=== PATIENT | female | born 1935 | race Caucasian/White ===

== ENCOUNTER 2017-08-31 17:59 | Emergency (ER) | payer OTHER, MEDICARE ==
[~2017-08-31] VITALS: Ht 154.9 cm; Wt 93.4 kg
[~2017-08-31 17:59] MED LIST: ADVAIR 250-501 EACH INH; ALBUTEROL2.5 MG/3 M INH/SOL; DIGOXIN250 MCG PO; ELIQUIS2.5 M1 PO; FUROSEMIDE40 M1 PO; GABAPENTIN300 M2 PO; GLIPIZIDE10 M2 PO; ISOSORBIDE MONO60 M1 PO; JANUVIA100 M1 PO; LASIX40 M1 PO; LEVEMIR FL100 UNIT/1 SC; LEVEMIR100 UNIT/1 SC; LEVOTHYROXINE100 MC1 PO; LORAZEPAM0.5 M1 PO; METFORMIN HCL500 M3 PO; METOPROLOL SUC100 M2 PO; OMEPRAZOLE40 M1 PO; OXYCODONE-ACET1 EACH PO; PRANDIN PO; SIMVASTATIN40 M1 PO; VALSARTAN160 M1 PO; XARELTO15 M2 PO
[2017-08-31 18:54] LABS: ABSOLUTE BASOPHIL COUNT 0 /CUMM (0.0-0.2); ABSOLUTE EOSINOPHIL COUNT 0.2 /CUMM (0.0-0.7); ABSOLUTE GRANULOCYTE CT 10.4 /CUMM (1.4-6.5); ABSOLUTE LYMPH COUNT 1.1 /CUMM (1.2-3.4); ABSOLUTE MONOCYTE COUNT 0.8 /CUMM (0.10-0.60); BASOPHIL % 0.3 % (0.0-2.0); EOSINOPHIL % 1.8 % (0-5); HEMATOCRIT 30.8 % (37-47); MEAN CORPUSCULAR HGB 24.7 PG (27.0-31.0); MEAN CORPUSCULAR HGB CONC 32.7 G/DL (33.0-37.0); MEAN CORPUSCULAR VOLUME 75.7 FL (81.0-99.0); MEAN PLATELET VOLUME 7.1 FL (7.4-10.4); PLATELET COUNT 319 /CUMM (130-400); RBC DISTRIBUTION WIDTH 22.7 % (11.5-14.5); RED BLOOD CELL CT 4.07 /CUMM (4.20-5.40); WHITE BLOOD CELL COUNT 12.5 /CUMM (4.8-10.8)
--- NOTE | 2017-08-31 19:23 | ULTRASOUND REPORT ---
EXAMINATION: US TRIPLEX LOWER EXTREMITY, RIGHT CLINICAL INFORMATION: Right lower extremity pain and edema. COMPARISON: None TECHNIQUE: Color-flow triplex imaging with spectral analysis and compression Doppler were performed on the lower extremity. FINDINGS: Respiratory variation, normal compression and augmented flow are noted throughout the lower extremity. The visualized common femoral vein, superficial femoral vein, profunda femoral vein, popliteal vein and midcalf peroneal and posterior tibial venous segments show no evidence of deep venous thrombosis. There is no Schmitt's cyst. IMPRESSION: Normal triplex scan without evidence of deep venous thrombosis involving the lower extremity.
--- NOTE | 2017-08-31 19:32 | ED GENERAL ADULT ---
History of Present Illness General Chief Complaint: Lower Extremity Problems Stated Complaint: SENT BY FOR POSSIBLE CELLULITIS Source: patient, family, old records Exam Limitations: no limitations Vital Signs & Intake/Output Vital Signs & Intake/Output Vital Signs Date Time Temp Pulse Resp B/P B/P Pulse O2 O2 Flow FiO2 Mean Ox Delivery Rate 08/31 2049 97 Nasal Cannula 09/01 2047 97.9 96 18 132/69 97 Nasal 2.0L Cannula 08/31 1817 97.7 96 18 145/82 93 Room Air Allergies Coded Allergies: NO KNOWN ALLERGIES (04/26/13) Reconcile Medications Albuterol Sulfate 2.5 MG/3 ML (0.083 %) VIAL.NEB 1 Vial INH/SARAH Q6-PRN PRN SHORTNESS OF BREATH (Reported) Amoxicillin/Potassium Clav (Augmentin 875-125 Tablet) 875 MG-125 MG TABLET 1 TAB PO BID cellulitis Apixaban (Eliquis) 2.5 MG TABLET 2.5 MG PO BID ATRIAL FIBRILLATION . Fluticasone/Salmeterol (Advair 250-50 Diskus) 250 MCG-50 MCG/DOSE BLST.W.DEV 1 PUF INH BID PRN SHORTNESS OF BREATH (Reported) Furosemide (Lasix) 40 MG TABLET 1 TAB PO DAILY WATER RETENTION (Reported) Gabapentin 300 MG CAPSULE 1 CAP PO QPM SLEEP (Reported) Insulin Detemir (Levemir Flextouch) 100 UNIT/ML (3 ML) INSULN.PEN 29 U SC DAILY DIABETES (Reported) Isosorbide Mononitrate (Isosorbide Mononitrate ER) 60 MG TAB.ER.24H 1 TAB PO DAILY HEART (Reported) Levothyroxine Sodium 100 MCG TABLET 1 TAB PO DAILY AC THYROID (Reported) Lorazepam 0.5 MG TABLET 1 TAB PO QPMP PRN SLEEP (Reported) Metoprolol Succinate 100 MG TAB.ER.24H 1 TAB PO DAILY HEART (Reported) Omeprazole 40 MG CAPSULE.DR 1 CAP PO QPM ACID REFLUX (Reported) Oxycodone HCl/Acetaminophen (Oxycodone-Acetaminophen 5-325) 5 MG-325 MG TABLET 1 TAB PO BIDP PRN PAIN (Reported) Repaglinide (Prandin) 2 MG TABLET 1 TAB PO TID DIABETES . Simvastatin (Simvastatin*) 40 MG TABLET 1 TAB PO DAILY CHOLESTEROL (Reported) Triage Note: PT TO WITH DAUGHTER C/C RLE EDEMA AND REDDNESS X 1 DAY. +5 LB WEIGHT GAIN. DENIES CHEST PAIN. HX OF SOB SECONDARY TO COPD, ON 2L NC AT BASELINE Triage Nurses Notes Reviewed? yes Onset: Abrupt Duration: day(s): (2), constant, continues in ED Timing: recent history Injury Environment: home Severity: mild, moderate Severity Numbers: 5 No Modifying Factors: none LMP (ages 10-50): post menopausal : No Patient currently breastfeeds: No HPI: 82-year-old female past medical history of COPD on 2 L home O2, CHF, atrial fibrillation, diabetes, hypothyroid, coronary artery disease presents for evaluation of pain swelling or redness in her right lower extremity as well as bilateral lower extremity edema right worse than left. Patient reports she has gained 5 pounds over the past day. She has a history of recurrent cellulitis in the right lower extremity. She reports that it is usually always a light pink color but over the past several days is become darker red. There is also painful around the lower extremity calf and ankle. No trauma. She is able to walk with a walker. No chest pain shortness of breath fever numbness tingling. No coughing no hemoptysis. No recent surgery or trauma. She has not required additional home oxygen. (Howard Calix) Past History Travel History Traveled to [place] past 21 day No Medical History Any Pertinent Medical History? see below for history Neurological: migraine (remote history), NEUROPATHY EENT: NONE Cardiovascular: AFIB, angina, CHF, hypertension, hyperlipidemia, "MULTIPLE WA'S " QUAD BYPASS Respiratory: COPD Gastrointestinal: GERD Hepatic: NONE Renal: NONE Musculoskeletal: NONE Psychiatric: anxiety Endocrine: diabetes, HYPOTHYROID Blood Disorders: NONE Cancer(s): NONE History of MRSA: No History of VRE: No History of CDIFF: No Surgical History Surgical History: appendectomy, arthroscopy, CABG, cholecystectomy, hysterectomy , thyroid lobectomy rotator cuff repair Psychosocial History Who do you live with Daughter Services at Home None What is your primary language Divehi Tobacco Use: Never used Family History Family History, If Any: FATHER FH: CABG (coronary artery bypass surgery) FH: diabetes mellitus FH: HTN (hypertension) FH: kidney disease FH: stroke MOTHER FH: myocardial infarction BROTHER FH: heart disease SISTER FH: COPD (chronic obstructive pulmonary disease) FH: heart disease Hx Contributory? No (Howard Calix) Review of Systems Review of Systems Constitutional: Reports: no symptoms. EENTM: Reports: no symptoms. Respiratory: Reports: no symptoms. Cardiovascular: Reports: peripheral edema. GI: Reports: no symptoms. Genitourinary: Reports: no symptoms. Musculoskeletal: Reports: see HPI, joint pain, joint swelling, muscle pain, muscle stiffness. Skin: Reports: erythema. Neurological/Psychological: Reports: no symptoms. Hematologic/Endocrine: Reports: no symptoms. Immunologic/Allergic: Reports: no symptoms. All Other Systems: Reviewed and Negative (Howard Calix) Physical Exam Physical Exam General Appearance: well developed/nourished, no apparent distress, alert, awake , obese Head: atraumatic, normal appearance Eyes: Bilateral: normal appearance, PERRL, EOMI. Ears, Nose, Throat: hearing grossly normal Neck: normal inspection, supple, full range of motion, NO JVD Respiratory: chest non-tender, no respiratory distress, quiet respiration, decreased breath sounds Cardiovascular: regular rate/rhythm, normal peripheral pulses Peripheral Pulses: 2+ radial (R), 2+ radial (L) Gastrointestinal: soft, non-tender Back: normal inspection, normal range of motion Extremities: THERE IS BILATERAL 1+ LOWER EXTREMITY EDEMA RT WORSE THAN LEFT. tHERE IS ERYTHEMA PRESENT FROM THE RIGHT ANKLE EXTENDING TO THE MID RIGHT LOWER LEG. tHIS AREA IS TENDER TO PALPATION AND WARM . nO FOCAL FLUCTUANT AREAS OR DISCHARGE. nO BRUISING. sHE IS ABLE TO WALK AND BEAR WEIGHT. Neurologic/Psych: no motor/sensory deficits, awake, alert, oriented x 3, normal gait (WITH WALKER ) Skin: intact, normal color, warm/dry Lymphatic: no anterior cervical tomy Core Measures ACS in differential dx? No CVA/TIA Diagnosis: No Sepsis Present: No Sepsis Focused Exam Completed? No (Howard Calix) Progress Differential Diagnoses I considered the following diagnoses in my evaluation of the patient: [ Cellulitis, DVT, CHF exacerbation, COPD exacerbation, dependent edema, osteomyelitis, gout, osteoarthritis, sprain, fracture] Plan of Care: Orders Procedure Date/time Status TROPONIN LEVEL 08/31 1818 Complete LACTIC ACID 08/31 1818 Complete COMPREHENSIVE METABOLIC PANEL 08/31 1818 Complete CBC WITHOUT DIFFERENTIAL 08/31 1818 Complete B-TYPE NATRIURETIC PEP (BNP) 08/31 1818 Complete EKG 08/31 1818 Active Laboratory Tests 08/31/172118: Lactic Acid Cancelled 08/31/17 1843: Anion Gap 12, Estimated GFR 33 L, BUN/Creatinine Ratio 20.7, Glucose 187 H, Lactic Acid 2.1, Calcium 8.8, Total Bilirubin 0.7, AST 15, ALT 19, Alkaline Phosphatase 93, Troponin I 0.03, [id number] Pept 1370 H, Total Protein 7.0, Albumin 3.7, Globulin 3.3, Albumin/Globulin Ratio 1.1, CBC w Diff NO MAN DIFF REQ, RBC 4.07 L, MCV 75.7 L, MCH 24.7 L, MCHC 32.7 L, RDW 22.7 H, MPV 7.1 L, Gran % 83.0 H, Lymphocytes % 8.9 L, Monocytes % 6.0, Eosinophils % 1.8 , Basophils % 0.3, Absolute Granulocytes 10.4 H, Absolute Lymphocytes 1.1 L, Absolute Monocytes 0.8 H, Absolute Eosinophils 0.2, Absolute Basophils 0 08/31/171818: Urine Color Cancelled, Urine Clarity Cancelled, Urine pH Cancelled, Ur Specific [place] Cancelled, Urine Protein Cancelled, Urine Ketones Cancelled, Urine Nitrite Cancelled, Urine Bilirubin Cancelled, Urine Urobilinogen Cancelled, Ur Leukocyte Esterase Cancelled, Ur Microscopic Cancelled, Urine Hemoglobin Cancelled, Urine Glucose Cancelled Patient seen and evaluated. She is reporting pain swelling and redness in the right lower extremity. She has a history of recurrent cellulitis in this area. She is afebrile no chest pain or shortness of breath. She is satting in the mid 90s on her home O2. Basic blood work chest x-ray ultrasound EKG obtained. white blood cell count of 12.5 thousand. Negative lactic acid. Remaining blood work is unchanged from previous. Chest x-ray is negative for pulmonary edema. Negative for DVT. Trachea of the right ankle shows soft tissue swelling without bony abnormality. Negative troponin EKG shows A. fib rate controlled. Patient was ambulated in the emergency department and did not desaturate. She has a steady gait with her walker. She lives at home with her daughter and has a nurse that visits 3 times weekly. Patient was medicated with Unasyn here. She'll be discharged home on Augmentin. A line was made around the area of erythema to track spread. Discussed return precautions in detail. Follow-up with primary care doctor and biomedical equipment specialist for a recheck in a few days return to the emergency department immediately if any concerns. Patient agrees the plan. Case discussed with Dr. JOE he agrees. Diagnostic Imaging: Viewed by Me: Radiology Read. Discussed w/RAD: Radiology Read. Radiology Impression: PATIENT: LOUANN BECKER PRESENT AGE: 82 PATIENT ACCOUNT NO: [id number] : 36 LOCATION: [facility] ORDERING PHYSICIAN: Howard COPELAND SERVICE DATE: 08/31/17 EXAM TYPE: RAD - XRY- ANKLE 3 OR MORE VIEWS R EXAMINATION: RIGHT ANKLE 3 VIEWS CLINICAL INFORMATION: Ankle pain and swelling. COMPARISON: None. TECHNIQUE: AP, lateral, oblique views of the right ankle were obtained. FINDINGS: There are no fractures or dislocations. There is soft tissue swelling overlying the lateral malleolus. There is a small calcaneal spur at the Achilles insertion site. There is a well- corticated ossicle inferior to the lateral malleolus. No ankle joint effusion is identified. IMPRESSION: Soft tissue swelling without acute fracture. DICTATED BY : Alonso Martines MD DATE/TIME DICTATED:08/31/172023 TABULATING SUPERVISOR:BREANNA DATE/TIME TRANSCRIBED:08/31/172023 CONFIDENTIAL, DO NOT COPY WITHOUT APPROPRIATE AUTHORIZATION. <Electronically signed in Other Vendor System> SIGNED BY: Alonso Martines MD 08/31/17 2 CXR Impression: PATIENT: LOUANN BECKER PRESENT AGE: 82 PATIENT ACCOUNT NO: [id number] : 36 LOCATION: [facility]) ORDERING PHYSICIAN: Howard COPELAND SERVICE DATE: 08/31/17 EXAM TYPE: RAD - XRY-CHEST XRAY, TWO VIEWS EXAMINATION: CHEST 2 VIEWS CLINICAL INFORMATION: Edema. Crackles. COMPARISON: 03/31/2017. TECHNIQUE: PA and lateral views of the chest were obtained. FINDINGS: The cardiac silhouette is enlarged, though stable. Intact midline sternal wires are present. There is a stable degree of interstitial prominence throughout both lungs. There are no discernible pleural effusions nor pneumothoraces. There are no consolidations. The osseous structures are stable. IMPRESSION: No consolidations. Stable cardiomegaly with stable degree of mild vascular congestion. DICTATED BY: Alonso Martines MD DATE/TIME DICTATED:08/31/171931 TABULATING SUPERVISOR:BREANNA DATE/TIME TRANSCRIBED:08/31/171931 CONFIDENTIAL, DO NOT COPY WITHOUT APPROPRIATE AUTHORIZATION. <Electronically signed in Other Vendor System> SIGNED BY: Alonso Martines MD 08/31/171936 Initial ED EKG: AFIB (RATE 117) (Howard Calix) Departure Departure Disposition: HOME OR SELF CARE Condition: Stable Clinical Impression Primary Impression: Cellulitis Qualifiers: Site of cellulitis: extremity Site of cellulitis of extremity: lower extremity Laterality: right Qualified Code: L03.115 - Cellulitis of right lower limb Referrals: Cheryle SAVAGE,Catalino Ta (PCP/Family) Additional Instructions: Take antibiotics as directed for the full course. Continue all medications as directed. Keep the legs elevated at night follow-up with her primary care doctor and biomedical equipment specialist. Monitor symptoms. If you have worsening swelling, chest pain, shortness of breath, fever, spreading redness or any other concerns return immediately. Departure Forms: Customer Survey General Discharge Information Prescriptions: Current Visit Scripts Amoxicillin/Potassium Clav (Augmentin 875-125 Tablet) 1 TAB PO BID #20 TAB (Howard Calix) PA/NAILHEAD SETTER Co-Sign Statement Statement: ED Attending supervision documentation- [X] I saw and evaluated the patient. I have also reviewed all the pertinent lab results and diagnostic results. I agree with the findings and the plan of care as documented in the PA's/NAILHEAD SETTER's documentation. [X] I have reviewed the ED Record and agree with the PA's/NAILHEAD SETTER's documentation. [] Additions or exceptions (if any) to the PAs/NAILHEAD SETTER's note and plan are summarized below: [] (Seb SAVAGE,Rajeev Kay) Critical Care Note Critical Care Note Critical Care Time: non-applicable (Howard Calix)
--- NOTE | 2017-08-31 19:37 | RADIOLOGY REPORT ---
EXAMINATION: CHEST 2 VIEWS CLINICAL INFORMATION: Edema. Crackles. COMPARISON: 03/31/2017. TECHNIQUE: PA and lateral views of the chest were obtained. FINDINGS: The cardiac silhouette is enlarged, though stable. Intact midline sternal wires are present. There is a stable degree of interstitial prominence throughout both lungs. There are no discernible pleural effusions nor pneumothoraces. There are no consolidations. The osseous structures are stable. IMPRESSION: No consolidations. Stable cardiomegaly with stable degree of mild vascular congestion.
--- NOTE | 2017-08-31 20:30 | RADIOLOGY REPORT ---
EXAMINATION: RIGHT ANKLE 3 VIEWS CLINICAL INFORMATION: Ankle pain and swelling. COMPARISON: None. TECHNIQUE: AP, lateral, oblique views of the right ankle were obtained. FINDINGS: There are no fractures or dislocations. There is soft tissue swelling overlying the lateral malleolus. There is a small calcaneal spur at the Achilles insertion site. There is a well-corticated ossicle inferior to the lateral malleolus. No ankle joint effusion is identified. IMPRESSION: Soft tissue swelling without acute fracture.
[2017-08-31 20:48] VITALS: BP 132/69
[2017-08-31] MEDS ORDERED: AUGMENTIN 875-1 EACH PO (21:22)
== END 2017-08-31 21:45 ==
LOC: ERH 17:59
PROVIDERS: Physician Assistant Medical
DX: L03.115 Cellulitis of right lower limb (principal); R60.0 Localized edema; I50.9 Heart failure, unspecified; E11.9 Type 2 diabetes mellitus without complications; I10 Essential (primary) hypertension; Z79.4 Long term (current) use of insulin
CPT/HCPCS: 71046; 73610-RT; 93005; 93010; 96374

== ENCOUNTER 2017-09-04 16:51 | Inpatient (IN) | payer OTHER, MEDICARE ==
[~2017-09-04] VITALS: Ht 154.9 cm; Wt 84.9 kg
[~2017-09-04 16:51] MED LIST changes: +AUGMENTIN 875-1 EACH PO
[2017-09-04 17:49] LABS: ABSOLUTE BASOPHIL COUNT 0 /CUMM (0.0-0.2); ABSOLUTE EOSINOPHIL COUNT 0.2 /CUMM (0.0-0.7); ABSOLUTE GRANULOCYTE CT 9.6 /CUMM (1.4-6.5); ABSOLUTE MONOCYTE COUNT 0.7 /CUMM (0.10-0.60); BASOPHIL % 0.1 % (0.0-2.0); EOSINOPHIL % 1.3 % (0-5); HEMATOCRIT 29.5 % (37-47); MEAN CORPUSCULAR HGB 23.4 PG (27.0-31.0); MEAN CORPUSCULAR HGB CONC 30.7 G/DL (33.0-37.0); MEAN CORPUSCULAR VOLUME 76.4 FL (81.0-99.0); MEAN PLATELET VOLUME 6.8 FL (7.4-10.4); PLATELET COUNT 283 /CUMM (130-400); RBC DISTRIBUTION WIDTH 23.5 % (11.5-14.5); RED BLOOD CELL CT 3.86 /CUMM (4.20-5.40); WHITE BLOOD CELL COUNT 11.4 /CUMM (4.8-10.8)
--- NOTE | 2017-09-04 18:34 | RADIOLOGY REPORT ---
EXAMINATION: XR CHEST CLINICAL INFORMATION: Increased fluid retention. Shortness of breath. COMPARISON: 08/31/2017 TECHNIQUE: 2 views of the chest were obtained. FINDINGS: Surgical clips overlie the mediastinum. Median sternotomy wires appear intact. The lungs are well expanded. Central vascular prominence with mild interstitial prominence. No pleural effusion or pneumothorax. No dense consolidation. The cardiac silhouette is prominent. There is a calcified aorta. IMPRESSION: Findings suggestive of mild fluid overload. No pleural effusion or consolidation.
--- NOTE | 2017-09-04 19:41 | ED GENERAL ADULT ---
History of Present Illness General Chief Complaint: General Adult Stated Complaint: "BACK PAIN, GAIN 9LBS OF FLUID IN 1 WEEK" Source: patient, family Exam Limitations: no limitations Vital Signs & Intake/Output Vital Signs & Intake/Output Vital Signs Date Time Temp Pulse Resp B/P B/P Pulse O2 O2 Flow FiO2 Mean Ox Delivery Rate 09/04 2132 Nasal 3.0L Cannula 09/04 1906 101 20 114/64 96 Nasal 2.0L Cannula 09/04 1730 97.1 106 22 124/71 95 Nasal 2.0L Cannula Allergies Coded Allergies: NO KNOWN ALLERGIES (04/26/13) Reconcile Medications Albuterol Sulfate 2.5 MG/3 ML (0.083 %) VIAL.NEB 1 Vial INH/SARAH Q6-PRN PRN SHORTNESS OF BREATH (Reported) Amoxicillin/Potassium Clav (Augmentin 875-125 Tablet) 875 MG-125 MG TABLET 1 TAB PO BID cellulitis Apixaban (Eliquis) 2.5 MG TABLET 2.5 MG PO BID ATRIAL FIBRILLATION . Fluticasone/Salmeterol (Advair 250-50 Diskus) 250 MCG-50 MCG/DOSE BLST.W.DEV 1 PUF INH BID PRN SHORTNESS OF BREATH (Reported) Furosemide (Lasix) 40 MG TABLET 1 TAB PO DAILY WATER RETENTION (Reported) Gabapentin 300 MG CAPSULE 1 CAP PO QPM SLEEP (Reported) Insulin Detemir (Levemir Flextouch) 100 UNIT/ML (3 ML) INSULN.PEN 29 U SC DAILY DIABETES (Reported) Isosorbide Mononitrate (Isosorbide Mononitrate ER) 60 MG TAB.ER.24H 1 TAB PO DAILY HEART (Reported) Levothyroxine Sodium 100 MCG TABLET 1 TAB PO DAILY AC THYROID (Reported) Lorazepam 0.5 MG TABLET 1 TAB PO QPMP PRN SLEEP (Reported) Metoprolol Succinate 100 MG TAB.ER.24H 1 TAB PO DAILY HEART (Reported) Omeprazole 40 MG CAPSULE.DR 1 CAP PO QPM ACID REFLUX (Reported) Oxycodone HCl/Acetaminophen (Oxycodone-Acetaminophen 5-325) 5 MG-325 MG TABLET 1 TAB PO BIDP PRN PAIN (Reported) Repaglinide (Prandin) 2 MG TABLET 1 TAB PO TID DIABETES . Simvastatin (Simvastatin*) 40 MG TABLET 1 TAB PO DAILY CHOLESTEROL (Reported) Triage Note: 82 YEAR OLD FEMALE HISTORY OF CHF COMES TO ER DUE TO 5-10 LB WEIGHT GAIN SINCE THURSDAY, PT IS O2 DEPENDENT 2L VIA NC AND O2 SAT 95 %, DENIES INCREASED SOB. PT IS BEING TREATED WITH PO ABT FOR RLE CELLULITIS AND STATES THAT IT LOOKS BETTER. PT NOTED BLE EDEMA, ALSO COMPLAINS OF 10/10 BACK PAIN WHICH IS CHRONIC AND HER PMD INCREASED HER PERCOCET DOSE TODAY. PT TAKES 40 MG PO LASIX BID AND IT IS NOT HELPING Triage Nurses Notes Reviewed? yes Onset: Gradual Duration: day(s): Timing: recent history Injury Environment: home Severity: moderate Modifying Factors: Improves With: rest. Associated Symptoms: swelling of lower extremities, weight gain HPI: 82 yo woman presents with 3 weeks of increasing lower extremity swelling, 9 lb weight gain over the past week, diminished urination. She was seen 5 days ago in ED for cellulitis which has improved, "but both her legs are still swollen." Her PMD recently adjusted her lasix. She is otherwise well. Past History Travel History Traveled to [place] past 21 day No Medical History Any Pertinent Medical History? see below for history Neurological: migraine (remote history), NEUROPATHY EENT: NONE Cardiovascular: AFIB, angina, CHF, hypertension, hyperlipidemia, "MULTIPLE NH'S " QUAD BYPASS Respiratory: COPD Gastrointestinal: GERD Hepatic: NONE Renal: NONE Musculoskeletal: NONE Psychiatric: anxiety Endocrine: diabetes, HYPOTHYROID Blood Disorders: NONE Cancer(s): NONE History of MRSA: No History of VRE: No History of CDIFF: No Surgical History Surgical History: appendectomy, arthroscopy, CABG, cholecystectomy, hysterectomy , thyroid lobectomy rotator cuff repair Psychosocial History Who do you live with Daughter Services at Home None What is your primary language Indonesian Tobacco Use: Never used ETOH Use: denies use Illicit Drug Use: denies illicit drug use Family History Family History, If Any: FATHER FH: CABG (coronary artery bypass surgery) FH: diabetes mellitus FH: HTN (hypertension) FH: kidney disease FH: stroke MOTHER FH: myocardial infarction BROTHER FH: heart disease SISTER FH: COPD (chronic obstructive pulmonary disease) FH: heart disease Hx Contributory? No Review of Systems Review of Systems Constitutional: Reports: no symptoms. EENTM: Reports: no symptoms. Respiratory: Reports: no symptoms. Cardiovascular: Reports: no symptoms. GI: Reports: no symptoms. Genitourinary: Reports: no symptoms. Musculoskeletal: Reports: no symptoms. Skin: Reports: no symptoms. Neurological/Psychological: Reports: no symptoms. Hematologic/Endocrine: Reports: no symptoms. Immunologic/Allergic: Reports: no symptoms. All Other Systems: Reviewed and Negative Physical Exam Physical Exam General Appearance: well developed/nourished, mild distress Head: atraumatic, normal appearance Eyes: Bilateral: normal appearance. Ears, Nose, Throat: normal pharynx, normal ENT inspection Neck: normal inspection, supple, full range of motion Respiratory: normal breath sounds, chest non-tender, diminished breath sounds at bases Cardiovascular: regular rate/rhythm Gastrointestinal: normal bowel sounds, soft, non-tender Back: normal inspection, normal range of motion Extremities: normal inspection, normal capillary refill, normal range of motion, no edema Neurologic/Psych: no motor/sensory deficits, awake, alert, oriented x 3 Skin: intact, normal color Core Measures ACS in differential dx? No CVA/TIA Diagnosis: No Sepsis Present: No Sepsis Focused Exam Completed? No Progress Differential Diagnoses I considered the following diagnoses in my evaluation of the patient: chf vs pneumonia vs other. Plan of Care: Orders Procedure Date/time Status Nothing by Mouth 09/05 B Active Lab Add-on Test 09/04 2213 Active Patient Data 09/04 2158 Active Saline Lock 09/04 2133 Active Misc Message 09/04 2133 Active ED Holding Orders 09/04 2133 Active Admit to inpatient 09/04 2133 Active Vital Signs 09/04 2133 Active Code Status 09/04 2133 Active EKG 09/04 2005 Active TSH REFLEX 09/04 174 Active B-TYPE NATRIURETIC PEP (BNP) 09/04 174 Active TROPONIN LEVEL 09/04 1734 Active COMPREHENSIVE METABOLIC PANEL 09/04 1734 Active CBC WITHOUT DIFFERENTIAL 09/04 1734 Complete Laboratory Tests 09/04/17 1740: Anion Gap 13, Estimated GFR 39 L, BUN/Creatinine Ratio 21.5, Glucose 246 H, Calcium 8.7, Total Bilirubin 0.7, AST 17, ALT 22, Alkaline Phosphatase 91, Troponin I 0.02, [id number] Pept Pending, Total Protein 6.7, Albumin 3.5, Globulin 3.2, Albumin/Globulin Ratio 1.1, TSH &T3 &Free T4 Intrp Pending, CBC w Diff NO MAN DIFF REQ, RBC 3.86 L, MCV 76.4 L, MCH 23.4 L, MCHC 30.7 L, RDW 23.5 H, MPV 6.8 L, Gran % 84.0 H, Lymphocytes % 8.7 L, Monocytes % 5.9, Eosinophils % 1.3, Basophils % 0.1, Absolute Granulocytes 9.6 H, Absolute Lymphocytes 1.0 L, Absolute Monocytes 0.7 H, Absolute Eosinophils 0.2, Absolute Basophils 0 Initial ED EKG: AFIB, no acute changes Departure Departure Disposition: HOME OR SELF CARE Condition: Stable Clinical Impression Primary Impression: CHF (congestive heart failure) Referrals: Cheryle SAVAGE,Catalino Ta (PCP/Family) Departure Forms: Customer Survey General Discharge Information Admission Note Spoke With: Srinath Baker MD Documentation of Exam: Documentation of any treatments & extenuating circumstances including Concerns Regarding Discharge (functional status, medication knowledge or non-compliance, living conditions, etc.) that warrant an admission rather than observation: pt with chf w/ dyspnea and increased 02 requirement (2l nc to 3l nc).... with 9 lb weight gain over the past week.... She merits iv last support, cards eval. call placed to cards. Critical Care Note Critical Care Note Critical Care Time: non-applicable
--- NOTE | 2017-09-04 22:08 | History & Physical ---
[place] SAVAGE,Simona 09/04/178: General Information and [facility] MD Statement: I have seen and personally examined LOUANN BECKER and documented this H&P. The patient is a 82 year old F who presented with a patient stated chief complaint of [Weight gain due to fluid overload- CHF exacerbation]. Source of Information: patient, old records Exam Limitations: no limitations History of Present Illness: 81-year-old woman with past history significant for coronary artery disease status post CABG in 2000 and stent placement in 2012, hypertension, A. fib on Xarelto, COPD on 2 L of home oxygen history of skin cancer brought in by by daughter for evaluation of weight gain of 9 pounds since last Thursday. Patient mentioned that she weigh herself daily and she noticed that she gained 5 pounds from Thursday to Thursday in the morning in addition to total gain of 4 pounds over the past 4 days. She also noticed a decreased urination. In addition she complains of shortness of breath when she walks from her recliner to the bathroom, she had to increase her nasal oxygen from 2 L to 3 L to overcome this shortness of breath. The patient noticed that her legs are more swollen than usual especially at the right ankle in addition to increased abdominal girth. The patient is compliant with her home meds including furosemide however she has to get her BEP checked regularly for BRITNEY and to dose she also complains of occasional dry cough. She she cannot lie flat at baseline because she feels short of breath versus orthopnea, she denies paroxysmal nocturnal dyspnea. She also denies any fever, nausea, vomiting, diarrhea or constipation Patient complains of chronic back pain for which she has to take Percocet 1 tab every 6 as needed, it was increased today by her PCP to 2 tabs every 6 as needed. She lives at home with her daughter and granddaughter, uses walker for ambulation, denies any recent dietary changes or changes to her medications. She also denies recent travel or sick contacts. In addition the patient reports that her blood sugar was not well controlled this morning her fingerstick glucose was 141. She also complains of obstructive sleep apnea for which she uses CPAP at night. She was admitted back in December 2016 for CHF exacerbation, UTI, A. fib, DM Her last echo in 01/15 showed ejection fraction more than 55%, left ventricular mild wall thickness, mild reduction of right ventricular systolic function, right ventricular systolic pressure was more than 60 mmHg ED course: Vital signs on admission: Blood pressure 124/71, temperature 97.1, pulse 106, respiratory 22, pulse ox 95 on 2 L nasal cannula Labs on admission: WBC 11.4, hemoglobin 9.1, hematocrit 29.5, platelet 283, sodium 136, chloride 93, BUN 28, creatinine 1.3, glucose 246, AST 17, ALT 22, Chest x-ray showed mild fluid overload, no pleural effusion or consolidation Allergies/Medications Allergies: Coded Allergies: NO KNOWN ALLERGIES (04/26/13) Home Med list Albuterol Sulfate 2.5 MG/3 ML (0.083 %) VIAL.NEB 1 Vial INH/SARAH Q6-PRN PRN SHORTNESS OF BREATH (Reported) Amoxicillin/Potassium Clav (Augmentin 875-125 Tablet) 875 MG-125 MG TABLET 1 TAB PO BID cellulitis Apixaban (Eliquis) 2.5 MG TABLET 2.5 MG PO BID ATRIAL FIBRILLATION . Fluticasone/Salmeterol (Advair 250-50 Diskus) 250 MCG-50 MCG/DOSE BLST.W.DEV 1 PUF INH BID PRN SHORTNESS OF BREATH (Reported) Furosemide (Lasix) 40 MG TABLET 1 TAB PO DAILY WATER RETENTION (Reported) Gabapentin 300 MG CAPSULE 1 CAP PO QPM SLEEP (Reported) Insulin Detemir (Levemir Flextouch) 100 UNIT/ML (3 ML) INSULN.PEN 34 U SC DAILY DIABETES (Reported) Isosorbide Mononitrate (Isosorbide Mononitrate ER) 60 MG TAB.ER.24H 1 TAB PO DAILY HEART (Reported) Levothyroxine Sodium 100 MCG TABLET 1 TAB PO DAILY AC THYROID (Reported) Lorazepam 0.5 MG TABLET 1 TAB PO QPMP PRN SLEEP (Reported) Metoprolol Succinate 100 MG TAB.ER.24H 1 TAB PO DAILY HEART (Reported) Omeprazole 40 MG CAPSULE.DR 1 CAP PO QPM ACID REFLUX (Reported) Oxycodone HCl/Acetaminophen (Oxycodone-Acetaminophen 5-325) 5 MG-325 MG TABLET 1 TAB PO BIDP PRN PAIN (Reported) Repaglinide (Prandin) 2 MG TABLET 1 TAB PO TID DIABETES . Simvastatin (Simvastatin*) 40 MG TABLET 1 TAB PO DAILY CHOLESTEROL (Reported) Past History Travel History Traveled to [place] past 21 day No Medical History Neurological: migraine (remote history), NEUROPATHY EENT: NONE Cardiovascular: AFIB, angina, CHF, hypertension, hyperlipidemia, "MULTIPLE AZ'S " QUAD BYPASS Respiratory: COPD Gastrointestinal: GERD Hepatic: NONE Renal: NONE Musculoskeletal: NONE Psychiatric: anxiety Endocrine: diabetes, HYPOTHYROID Blood Disorders: NONE Cancer(s): NONE History of MRSA: No History of VRE: No History of CDIFF: No Surgical History Surgical History: appendectomy, arthroscopy, CABG, cholecystectomy, hysterectomy , thyroid lobectomy rotator cuff repair Past Family/Social History Family History Relations & Conditions if any FATHER FH: CABG (coronary artery bypass surgery) FH: diabetes mellitus FH: HTN (hypertension) FH: kidney disease FH: stroke MOTHER FH: myocardial infarction BROTHER FH: heart disease SISTER FH: COPD (chronic obstructive pulmonary disease) FH: heart disease Psychosocial History Services at Home: None ETOH Use: denies use Illicit Drug Use: denies illicit drug use Review of Systems Review of Systems Constitutional: Denies: no symptoms. Cardiovascular: Reports: edema, orthopena. Denies: palpitations, peripheral edema. Respiratory: Reports: cough, orthopnea, short of breath. Denies: sputum production, stridor, wheezing. GI: Denies: no symptoms. Genitourinary: Denies: no symptoms. Musculoskeletal: Denies: no symptoms. Skin: Denies: no symptoms. Neurological/Psychological: Denies: no symptoms. Hematologic/Endocrine: Denies: no symptoms. Exam & Diagnostic Data Last 24 Hrs of Vital Signs/I&O Vital Signs Date Time Temp Pulse Resp B/P B/P Pulse O2 O2 Flow FiO2 Mean Ox Delivery Rate 09/04 2350 93 Nasal 2.0L Cannula 09/04 2336 98.3 93 18 138/70 95 Nasal 2.0L Cannula 09/04 2222 97.8 98 20 130/72 94 Nasal 2.0L Cannula 09/04 2132 Nasal 3.0L Cannula 09/04 1906 101 20 114/64 96 Nasal 2.0L Cannula 09/04 1730 97.1 106 22 124/71 95 Nasal 2.0L Cannula Intake & Output 09/05 0800 04/ 0000 09/04 1600 Intake Total Output Total Balance Patient 208 lb Weight Weight Reported by Patient Measurement Method Physical Exam General Appearance Alert, Oriented X3, Cooperative, No Acute Distress HEENT Atraumatic, PERRLA, EOMI, Mucous Membr. moist/pink Neck Supple Cardiovascular Normal S1, Normal S2 Lungs Normal Air Movement, minimal widespreas wheezes Abdomen Normal Bowel Sounds, Soft, abd distension Neurological Normal Speech, Strength at 5/5 X4 Ext, Normal Tone, Sensation Intact, Cranial Nerves 3-12 NL Extremities bilateral 2 + pitting edema, right LE erythema is receeding from the line marking done in the ED previously to monitor cellulitis Vascular Normal Pulses Assessment/Plan Assessment: 81-year-old woman with past history significant for coronary artery disease status post CABG in 2000 and stent placement in 2012, hypertension, A. fib on Eliquis, COPD on 2 L of home oxygen history of skin cancer brought in by by daughter for evaluation of weight gain of 9 pounds since last Thursday. Most likely her symptoms is due to CHF exacerbation. Given her CKD the patient might not be receiving the optimal dose of Lasix. In addition she was recently diagnosed with cellulitis which it to her right lower extremity swelling. The patient is currently on Eliquis which decreased her risk of having DVT Problem list: CHF exacerbation Diabetes mellitus Hypertension A. fib on Eliquis COPD and oxygen CKD Chronic back pain Right lower extremity cellulitis Plan: Admit to telemetry floor IV Lasix 40 mg daily Close monitoring of BEP Atorvastatin 40 mg daily Continue her metoprolol dose in the morning and restart Cardiology consult appreciated in the a.m. Fingerstick glucose Levemir 12 units twice daily Continue ELiquis 2.5 mg twice daily Strict I's and O's Vitals every shift Augmentin 500 mg p.o. twice daily for a total of 10 days Percocet 1 tab every 6 as needed for back pain Continue home meds Full code DVT prophylaxis with Eliquis Heart healthy diet As Ranked By This Provider Problem List: 1. Cellulitis 2. CHF (congestive heart failure) 3. Diabetes 4. Afib Core Measures/Misc (02/15) Acute Coronary Syndrome ACS Diagnosis: No Congestive Heart Failure Congestive Heart Failure Diagnosis Yes Last Known EF % 55 Cerebrovascular Accident CVA/TIA Diagnosis: No VTE (View Protocol) VTE Risk Factors Age>40 No Mechanical VTE Prophylaxis d/t N/A MechProphylax Ordered No VTE Pharm Prophylaxis d/t NA PharmProphylax ordered Sepsis (View protocol) Sepsis Present: No Samuel,Aartee 09/05/17 0520: Attending MD Review Statement Attending Statement Attending MD Statement: examined this patient, discuss w/resident/PA/GENERAL MEDICAL PRACTITIONER, agreed w/resident/PA/GENERAL MEDICAL PRACTITIONER, reviewed EMR data (avail), reviewed images, amended to note Attending Assessment/Plan: CC: Weight gain PMH: A. fib, COPD on 2 L nasal cannula, heart failure with preserved ejection fraction, CAD S/P CABG and PCI, pulmonary hypertension, DM, history of thyroid tumor S/P radio ablation, now hypothyroidism, chronic back pain, CKD Patient came to ER for weight gain, 9 pounds in last 1 week. Patient weighs herself daily because of her heart failure. Patient had history of acute kidney injury, gets labs every week and her Lasix dose is adjusted according to her weight and kidney function. She noticed this 9 pound weight gain over one week duration, associated with increased leg swelling, increased abdominal girth, decreased urine output, dyspnea on exertion. She has chronic dry cough which is unchanged, no sputum production, she tried to increase her oxygen at home to 3 L for her shortness of breath with the symptomatic relief. Because of the persistence of the symptoms she came to ER for further evaluation. She was recently seen in ER on August 31, was found to have cellulitis and currently on antibiotics. Right lower extremity redness and and tenderness is improved as compared to that visit. Other than that mentioned symptoms complete ROS unremarkable. Vitals: Afebrile, pulse 106, RR 22, blood pressure 124/71, saturating 95% on 2 L nasal cannula On exam: A O 3, cooperative, no acute distress, neck supple, JVD difficult to assess, no lymphadenopathy, mucosa moist, complete neuro exam unremarkable, +2 leg edema right more than left, scar of previous vein grafting on the right side , very minimum inflammation on the leg and right side improving compared to the marking done earlier CVS: S1-S2, irregular. RS: Bibasilar fine crackles, minimum expiratory wheezing. Abdomen: Soft, NT, distended, fluid thrill present, bowel sounds present. Peripheral pulses perfusion normal. mild tenderness on right side lower back CXR: Findings suggestive of mild fluid overload. No pleural effusion or consolidation. Assessment and plan 82 year old female with extensive past medical history presented in ER for 9 pound weight gain over last 1 week, increased leg swelling, increased abdominal girth, increasing oxygen requirement at home secondary to dyspnea on exertion. Denies any obvious wheezing, has dry cough without expectoration, no fever or chills, nausea or vomiting. She is on antibiotics for recently diagnosed cellulitis and right lower extremity which is improving on examination. JVD could not be assessed as she cannot lay down from recliner, minimum bibasilar crackles and wheezing, +2 pitting edema present, abdomen is distended and fluid thrill present. Chest x-ray confirms the finding of mild fluid overload. Patient 's WBC is improving as compared to previous ER visit, otherwise labs unremarkable. Patient's creatinine is much better as compared to past. She appears to have acute on chronic heart failure, needing hospitalization for IV diuretic. + Acute on chronic heart failure with preserved ejection fraction + Right leg Cellulitis under treatment + Hx of A. fib, COPD on 2 L nasal cannula, CAD S/P CABG and PCI, pulmonary hypertension, DM, hypothyroidism, chronic back pain, CKD - Admit to telemetry - Continuous telemetry monitoring - Continue O2 by nasal cannula, try to wean to her home level - IV Lasix 40 mg repeat in a.m., reassess for volume status - Strict I's and O's - Daily weights - Serial troponin and EKGs - 2-D echo in a.m. if suggested by cardiology - Cardiology consult in a.m. - DVT prophylaxis - OT PT evaluation - Continue by mouth Augmentin for right lower extremity cellulitis - Continue sliding scale insulin, hold other antidiabetic - Continue rest of her home medications after confirming with her daughter in morning. Patient could not confirm all her medications. Frankie Page 09/05/17 0921: Resident Review Statement Resident Statement: examined this patient, discussed with programming intern, amended to note Other Findings: Ms Becker is an 82-year-old woman with past medical history of atrial fibrillation on anticoagulation with DOAC, coronary artery disease with prior CABG and subsequent PCI in November of 2012, chronic heart failure with preserved ejection fraction, pulmonary hypertension, hypertension, hyperlipidemia, COPD on 2 L oxygen, migraine, type 2 diabetes, hypothyroidism, anxiety came to the hospital with a chief concern of recent weight gain of approximately 5-10 pounds in the last 1 week, worsening pedal edema, back pain. Reported sleeping only on her recliner. Occasional cough. Also reported decreased urination in the last 3 weeks, and worsening abdominal distention. She has been treated for cellulitis with amoxicillin, start date 09/01/2017. At the time of admission-vitals temperature 97.1, pulse rate 106, respiration 22 , blood pressure 124/71, pulse ox 95% on 2 L. General Exam: AAOx3, No acute distress, Skin: No rashes, no breakdown;HEENT: PERRLA, EOMI;Neck: Supple, No JVD, No cervical lymphadenopathy;CVS: Reg Rate, Normal S1,S2, No MGR;Resp: Decreased air entry, Rales present. Abdomen: Soft, No tenderness, Normal Bowel Sounds;Neuro: Normal Speech, Strength 5/5 b/l x 4 extremities, Sensation intact, CN III-XII NL, Reflexes 2+;Extremities: No cyanosis, 3+ pedal edema, erythema on the right lower extremity extending from the ankle up to middle of her leg, although receding Pertinent lab findings-WBC 11.4 (84% granulocytosis),, hemoglobin 9.1 (baseline 9.0,), MCV 76.4 ( microcytosis), platelet count 283, sodium 136, potassium 3.8, bicarbonate 37 (likely from diuretic use), BUN 28, creatinine 1.3 (baseline 1.5) glucose 246, liver chemistries-AST 17, ALT 22, alkaline phosphatase 91. Cardiac enzymes-troponin I 0.02, Chest x-ray revealed findings suggestive of mild fluid overload. No pleural effusion or consolidation found. EKG revealed Afib, no STTWI. Echocardiogram- 03 January 2017 Technically difficult study. Definity contrast was used. Left ventricular cavity size normal. Left ventricular wall thickness mildly increased. No obvious regional wall motion abnormalities. Left ventricular ejection fraction is estimated at > 55 %. Right ventricle not well visualized. Mildly reduced right ventricular global systolic function. Mild left atrial dilatation. Right ventricular systolic pressure estimated to be elevated at > 60 mmHg. No pericardial effusion. Etiology in this case is likely acute decompensated heart failure which is a rapidly progressive failure state given a possible precipitating event, increase salt intake/medication noncompliance/infection on chronic diastolic left-sided+ right-sided heart failure. In regards to her cellulitis, she should complete the course. Having chronic kidney disease could contribute to fluid overload. Other contributing factors could be elevated pulmonary artery pressures, and COPD exacerbation. She should be on a renal adjusted dose of amoxicillin and eliquis. Problem list: 1. Acute decompensation of HFpEF 2. h/o Atrial fibrillation on DOAC 3. Right lower extremity cellulitis 4. History of coronary artery disease 5. Chronic kidney disease 6. COPD on 2 L nasal cannula Plan: -admit the patient on telemetry -follow serial EKGs, troponins -daily Ins and Outs -daily weights -IV diuretics furosemide 40 mg once a day, with re-assessing her kidney function. -Check BEP daily while on diuretics. -Check TSHR -2D cardiac echo to assess ejection fraction, valvular pathology or regional wall motion abnormalities -supplemental oxygen as needed -Elevate head of the bed to reduce venous return -Consider NIPPV to reduce work of breathing, improve oxygenation -CHF diet, 2gm salt restriction -Court Crier on dietary compliance -Consider cxr after adequate diuresis. -Continue Levemir at decreased dosing of 12 units twice a day. -NovoLog sliding scale. Accu-Cheks. -Continue Eliquis at 2.5 mg by mouth twice a day, which is a decreased dose adjusted for her renal function. Ideally she can get slightly higher dose, but considering the fact that she will be given intravenous furosemide in the next 24 hours for diuresis, would continue the dose at 2.5 mg by mouth twice daily. -Continue amoxicillin to complete the course, but has been renally adjusted. -Check lower extremity Dopplers to rule out DVT. Housekeeping: #1 DVT prophylaxis-pharmacological #2 GI prophylaxis-Protonix #3 code-full code.
[2017-09-04 23:36] VITALS: BP 138/70
--- NOTE | 2017-09-05 05:21 | Admission Certification ---
Admission Certification Certification Statement - As attending physician, I certify that at the time of - admission, based on clinical presentation, severity of - symptoms, need for further diagnostic testing and - therapeutic interventions, and risk of adverse outcomes - without in-hospital treatment, in my clinical assessment, - this patient requires an acute hospital stay for a minimum - of two nights or longer. I have also considered psychsocial - factors such as support system, advanced age, financial - issues, cognitive issues, and failed out-patient treatments, - past re-admission history, safety of patient, and lack of - compliance as applicable. Specific rationale supporting this admission is: Acute on chronic heart failure with preserved ejection fraction
[2017-09-05 07:36] VITALS: BP 146/80
--- NOTE | 2017-09-05 08:46 | PN- Housestaff ---
GonzaloAllie 09/05/17 0845: Subjective Follow-up For: As problem list in AP Tele-Events Since Last Visit: A-fib 90s-100s Subjective: No overnight event. Patient felt not rested due to interruptions of sleep at night by staffs. No other specific complaint. denied pain on RLE cellulitis. Would like 2 percocet instead of 1 for her chronic back pain. Review of Systems Constitutional: Reports: see HPI. Objective Last 24 Hrs of Vital Signs/I&O Vital Signs Date Time Temp Pulse Resp B/P B/P Pulse O2 O2 Flow FiO2 Mean Ox Delivery Rate 09/05 08 93 Nasal 2.0L Cannula 09/05 0736 97.5 102 18 146/80 93 Nasal 2.0L Cannula 09/05 0128 90 98 09/05 0123 96 Nasal 2.0L Cannula 09/04 2350 93 Nasal 2.0L Cannula 09/04 2336 98.3 93 18 138/70 95 Nasal 2.0L Cannula 09/04 2222 97.8 98 20 130/72 94 Nasal 2.0L Cannula 09/04 2132 Nasal 3.0L Cannula 09/04 1906 101 20 114/64 96 Nasal 2.0L Cannula 09/04 1730 97.1 106 22 124/71 95 Nasal 2.0L Cannula Intake & Output 09/05 1600 09/05 0800 09/05 0000 Intake Total Output Total 350 Balance -350 Output, Urine 350 Patient 92.76 kg 92.533 kg Weight Weight Standing Scale Standing Scale Measurement Method Physical Exam General Appearance: Alert, Oriented X3, Cooperative, No Acute Distress Cardiovascular: Irregular af-ib Lungs: Clear to Auscultation, Normal Air Movement Abdomen: Soft, No Tenderness Neurological: Normal Speech Extremities: No Edema, Normal Pulses, RLE cellulitits with mild erythema but no elevation of skin temp/tenderness, no limited ROM Current Medications: Current Medications Sig/Avery Start time Last Medication Dose Route Stop Time Status Admin Amoxicillin/ 500 MG BID 09/05 0015 AC 09/05 Clavulanate Potassium PO 0556 Apixaban 2.5 MG BID 09/04 2329 AC 09/05 PO 0427 Atorvastatin Calcium 40 MG 1700 09/05 1700 AC PO Budesonide/ 2 PUF BID 09/04 2330 AC 09/05 Formoterol Fumarate INH 0845 Furosemide 40 MG DAILY 09/05 1000 AC 09/05 IV 0842 Furosemide 0 .STK-MED ONE 09/05 2107 DC IV Furosemide 40 MG ONCE ONE 09/04 2014 DC 09/04 IV 09/04 Gabapentin 300 MG QPM 09/05 2200 CAN PO Insulin Aspart 0 TIDAC 09/06 799 AC SC Insulin Detemir 12 UNITS BID 09/04 234 AC SC Isosorbide 60 MG DAILY 09/05 1000 CAN Mononitrate PO Levothyroxine Sodium 0.1 MG DAILY AC 09/05 699 AC 09/05 PO 0556 Nystatin 1 [place] BID 09/05 0100 AC 09/05 TOP 0845 Omeprazole 40 MG AT BEDTIME 09/05 2199 AC PO Omeprazole 40 MG DAILY AC 09/05 699 DC PO Oxycodone/ 1 TAB Q6-PRN PRN 09/04 234 AC 09/05 Acetaminophen PO 0558 Oxycodone/ 1 TAB ONCE ONE 09/04 2199 DC 09/05 Acetaminophen PO 09/04 220 0021 Last 24 Hrs of Lab/Shaheed Results Last 24 Hrs of Labs/Mics: Laboratory Tests 09/05/17 0600: Troponin I 0.03 09/04/17 1740: Anion Gap 13, Estimated GFR 39 L, BUN/Creatinine Ratio 21.5, Glucose 246 H, Calcium 8.7, Total Bilirubin 0.7, AST 17, ALT 22, Alkaline Phosphatase 91, Troponin I 0.02, Fms-J-Trwvjamqknd Pept 1630 H, Total Protein 6.7, Albumin 3.5, Globulin 3.2, Albumin/Globulin Ratio 1.1, TSH &T3 &Free T4 Intrp 2.200, CBC w Diff NO MAN DIFF REQ, RBC 3.86 L, MCV 76.4 L, MCH 23.4 L, MCHC 30.7 L, RDW 23.5 H, MPV 6.8 L, Gran % 84.0 H, Lymphocytes % 8.7 L, Monocytes % 5.9, Eosinophils % 1.3, Basophils % 0.1, Absolute Granulocytes 9.6 H, Absolute Lymphocytes 1.0 L, Absolute Monocytes 0.7 H, Absolute Eosinophils 0.2, Absolute Basophils 0 Assessment/Plan Assessment: Ms Contreras is an 82-year-old woman with past medical history of atrial fibrillation on anticoagulation with DOAC, coronary artery disease with prior CABG and subsequent PCI in November of 2012, chronic heart failure with preserved ejection fraction, pulmonary hypertension, hypertension, hyperlipidemia, COPD on 2 L oxygen, migraine, type 2 diabetes, hypothyroidism, anxiety came to the hospital with a chief concern of recent weight gain of approximately 5-10 pounds in the last 1 week, worsening pedal edema, back pain. Reported sleeping only on her recliner. Occasional cough. Also reported decreased urination in the last 3 weeks, and worsening abdominal distention. She has been treated for cellulitis with amoxicillin, start date 09/01/2017. At the time of admission-vitals temperature 97.1, pulse rate 106, respiration 22 , blood pressure 124/71, pulse ox 95% on 2 L. Problem list: 1. Acute decompensation of HFpEF 2. h/o Atrial fibrillation on DOAC 3. Right lower extremity cellulitis 4. History of coronary artery disease 5. Chronic kidney disease 6. COPD on 2 L nasal cannula Plan: -continue telemetry monitoring -follow serial EKGs, troponins -daily Ins and Outs, overnight negative fluid balance. -daily weights -IV diuretics furosemide 40 mg once a day, with re-assessing her kidney function. -Check BEP daily while on diuretics. -TSHR had been negative -2D cardiac echo to assess ejection fraction, valvular pathology or regional wall motion abnormalities -supplemental oxygen as needed, currently at 2LNC of her baseline -Elevate head of the bed to reduce venous return -Consider NIPPV to reduce work of breathing, improve oxygenation -CHF diet, 2gm salt restriction -Wire Setter on dietary compliance -Continue Levemir at decreased dosing of 12 units twice a day. -NovoLog sliding scale. Accu-Cheks. -Continue Eliquis at 2.5 mg by mouth twice a day, which is a decreased dose adjusted for her renal function. Ideally she can get slightly higher dose, but considering the fact that she will be given intravenous furosemide in the next 24 hours for diuresis, would continue the dose at 2.5 mg by mouth twice daily. -Continue amoxicillin to complete the course, but has been renally adjusted. -Check lower extremity Dopplers to rule out DVT. -Confirmed on medication list that patient was recently removed from use of Metoprolol. Was not on her home med list per patient's daughter in room 2017. Housekeeping: #1 DVT prophylaxis-pharmacological #2 GI prophylaxis-Protonix #3 code-full code. Problem List: 1. CHF (congestive heart failure) Pain Ratin Pain Location: NA Pain Goal: Remain pain free Pain Plan: see AP Tomorrow's Labs & Rationales: Timothy Restrepo 09/05/17 1024: Attending MD Review Statement Attending Statement Attending MD Statement: examined this patient, discuss w/resident/PA/STOCK LAYER, agreed w/resident/PA/STOCK LAYER, discussed with family, reviewed EMR data (avail), discussed with nursing, discussed with case mgmt, reviewed images, amended to note Attending Assessment/Plan: Patient came with afib and Worsening lower extremity edema with acute on chronic congestive heart failure preserved EF. Patient is on NOAC. Patient is started on iv diuretis, caridology is consulted. Patient is on augmentin for right lower extremity cellulitis. Cont current care as per admitting physician..
--- NOTE | 2017-09-05 13:53 | Cons- Pulmonary ---
General Information and HPI Consulting Request Date of Consult: 09/05/17 Requested By: med team History of Present Illness: 81-year-old woman with past history significant for coronary artery disease status post CABG in 2000 and stent placement in 2012, hypertension, A. fib on Xarelto, COPD on 2 L of home oxygen history of skin cancer brought in by by daughter for evaluation of weight gain of 9 pounds since last Thursday. [facility], cellulitis and copde The patient noticed that her legs are more swollen than usual especially at the right ankle in addition to increased abdominal girth. The patient is compliant with her home meds including furosemide however she has to get her BEP checked regularly for BRITNEY and to dose she also complains of occasional dry cough. She she cannot lie flat at baseline because she feels short of breath versus orthopnea, she denies paroxysmal nocturnal dyspnea. She also denies any fever, nausea, vomiting, diarrhea or constipation Patient complains of chronic back pain for which she has to take Percocet 1 tab every 6 as needed, it was increased today by her PCP to 2 tabs every 6 as needed. She lives at home with her daughter and granddaughter, uses walker for ambulation, denies any recent dietary changes or changes to her medications. She also denies recent travel or sick contacts. She also has obstructive sleep apnea for which she uses CPAP at night. She was admitted back in December 2016 for CHF exacerbation, UTI, A. fib, DM Her last echo in 01/15 showed ejection fraction more than 55%, left ventricular mild wall thickness, mild reduction of right ventricular systolic function, right ventricular systolic pressure was more than 60 mmHg ED course: Vital signs on admission: Blood pressure 124/71, temperature 97.1, pulse 106, respiratory 22, pulse ox 95 on 2 L nasal cannula Labs on admission: WBC 11.4, hemoglobin 9.1, hematocrit 29.5, platelet 283, sodium 136, chloride 93, BUN 28, creatinine 1.3, glucose 246, AST 17, ALT 22, Chest x-ray showed mild fluid overload, no pleural effusion or consolidation Since admission to the floor her edema has improved Baseline pt on 2 litres of oxygen and uses prn nebs and compliant with cpap Allergies/Medications Allergies: Coded Allergies: NO KNOWN ALLERGIES (04/26/13) Home Med List: Albuterol Sulfate 2.5 MG/3 ML (0.083 %) VIAL.NEB 1 Vial INH/SARAH Q6-PRN PRN SHORTNESS OF BREATH (Reported) Amoxicillin/Potassium Clav (Augmentin 875-125 Tablet) 875 MG-125 MG TABLET 1 TAB PO BID cellulitis Apixaban (Eliquis) 2.5 MG TABLET 2.5 MG PO BID ATRIAL FIBRILLATION . Fluticasone/Salmeterol (Advair 250-50 Diskus) 250 MCG-50 MCG/DOSE BLST.W.DEV 1 PUF INH BID PRN SHORTNESS OF BREATH (Reported) Furosemide (Lasix) 40 MG TABLET 1 TAB PO DAILY WATER RETENTION (Reported) Gabapentin 300 MG CAPSULE 1 CAP PO QPM SLEEP (Reported) Insulin Detemir (Levemir Flextouch) 100 UNIT/ML (3 ML) INSULN.PEN 34 U SC DAILY DIABETES (Reported) Isosorbide Mononitrate (Isosorbide Mononitrate ER) 60 MG TAB.ER.24H 1 TAB PO DAILY HEART (Reported) Levothyroxine Sodium 100 MCG TABLET 1 TAB PO DAILY AC THYROID (Reported) Lorazepam 0.5 MG TABLET 1 TAB PO QPMP PRN SLEEP (Reported) Metoprolol Succinate 100 MG TAB.ER.24H 1 TAB PO DAILY HEART (Reported) Omeprazole 40 MG CAPSULE.DR 1 CAP PO QPM ACID REFLUX (Reported) Oxycodone HCl/Acetaminophen (Oxycodone-Acetaminophen 5-325) 5 MG-325 MG TABLET 1 TAB PO BIDP PRN PAIN (Reported) Repaglinide (Prandin) 2 MG TABLET 1 TAB PO TID DIABETES . Simvastatin (Simvastatin*) 40 MG TABLET 1 TAB PO DAILY CHOLESTEROL (Reported) Review of Systems Review of Systems Constitutional: Reports: see HPI. Comments Denies: no symptoms. Cardiovascular: Reports: edema, orthopena. Denies: palpitations, peripheral edema. Respiratory: Reports: cough, orthopnea, short of breath. Denies: sputum production, stridor, wheezing. GI: Denies: no symptoms. Genitourinary: Denies: no symptoms. Musculoskeletal: Denies: no symptoms. Skin: Denies: no symptoms. Neurological/Psychological: Denies: no symptoms. Hematologic/Endocrine: Denies: no symptoms. Past History Travel History Traveled to [place] past 21 day No Medical History Blood Transfusion Hx: Yes Neurological: migraine (remote history), NEUROPATHY EENT: NONE Cardiovascular: AFIB, angina, CHF, hypertension, hyperlipidemia, "MULTIPLE MN'S " QUAD BYPASS Respiratory: COPD Gastrointestinal: GERD Hepatic: NONE Renal: NONE Musculoskeletal: NONE Psychiatric: anxiety Endocrine: diabetes, HYPOTHYROID Blood Disorders: NONE Cancer(s): NONE Surgical History Surgical History: appendectomy, arthroscopy, CABG, cholecystectomy, hysterectomy , thyroid lobectomy rotator cuff repair Family History Relations & Conditions If Any: FATHER FH: CABG (coronary artery bypass surgery) FH: diabetes mellitus FH: HTN (hypertension) FH: kidney disease FH: stroke MOTHER FH: myocardial infarction BROTHER FH: heart disease SISTER FH: COPD (chronic obstructive pulmonary disease) FH: heart disease Psychosocial History Where Do You Live? Home Services at Home: None Smoking Status: Never Smoked ETOH Use: denies use Illicit Drug Use: denies illicit drug use Exam & Diagnostic Data Last 24 Hrs of Vital Signs/I&O Vital Signs Date Time Temp Pulse Resp B/P B/P Pulse O2 O2 Flow FiO2 Mean Ox Delivery Rate 09/05 0800 93 Nasal 2.0L Cannula 09/05 0736 97.5 102 18 146/80 93 Nasal 2.0L Cannula 09/05 0128 90 98 09/05 0123 96 Nasal 2.0L Cannula 09/04 2350 93 Nasal 2.0L Cannula 09/04 2336 98.3 93 18 138/70 95 Nasal 2.0L Cannula 09/04 2222 97.8 98 20 130/72 94 Nasal 2.0L Cannula 09/04 2132 Nasal 3.0L Cannula 09/04 1906 101 20 114/64 96 Nasal 2.0L Cannula 09/04 1730 97.1 106 22 124/71 95 Nasal 2.0L Cannula Intake & Output 09/05 1600 09/05 0800 09/05 0000 Intake Total Output Total 350 Balance -350 Output, Urine 350 Patient 205 lb 204 lb Weight Weight Standing Scale Standing Scale Measurement Method Last 48 Hrs of Labs/Shaheed: Laboratory Tests 09/05/17 0600: Troponin I 0.03 09/04/17 1740: Anion Gap 13, Estimated GFR 39 L, BUN/Creatinine Ratio 21.5, Glucose 246 H, Calcium 8.7, Total Bilirubin 0.7, AST 17, ALT 22, Alkaline Phosphatase 91, Troponin I 0.02, Isv-M-Lqjtrzhvout Pept 1630 H, Total Protein 6.7, Albumin 3.5, Globulin 3.2, Albumin/Globulin Ratio 1.1, TSH &T3 &Free T4 Intrp 2.200, CBC w Diff NO MAN DIFF REQ, RBC 3.86 L, MCV 76.4 L, MCH 23.4 L, MCHC 30.7 L, RDW 23.5 H, MPV 6.8 L, Gran % 84.0 H, Lymphocytes % 8.7 L, Monocytes % 5.9, Eosinophils % 1.3, Basophils % 0.1, Absolute Granulocytes 9.6 H, Absolute Lymphocytes 1.0 L, Absolute Monocytes 0.7 H, Absolute Eosinophils 0.2, Absolute Basophils 0 Assessment/Plan Impression/Plan: General Appearance Alert, Oriented X3, Cooperative, No Acute Distress HEENT Atraumatic, PERRLA, EOMI, Mucous Membr. moist/pink Neck Supple Cardiovascular Normal S1, Normal S2 Lungs Normal Air Movement, minimal widespreas wheezes Abdomen Normal Bowel Sounds, Soft, abd distension Neurological Normal Speech, Strength at 5/5 X4 Ext, Normal Tone, Sensation Intact, Cranial Nerves 3-12 NL Extremities bilateral 2 + pitting edema, right LE erythema is receeding from the line marking done in the ED previously to monitor cellulitis Vascular Normal Pulses CXR mild chf IMPRESSION Ms Contreras is an 82-year-old woman with past medical history of atrial fibrillation on anticoagulation with NOAC, coronary artery disease with prior CABG and subsequent PCI in November of 2012, chronic heart failure with preserved ejection fraction, Secondary pulmonary hypertension, hypertension, hyperlipidemia, 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, migraine, type 2 diabetes, hypothyroidism, anxiety Now with decompensated chf with rt more than left chf with preserved ef Pt has sig chronic bronchiolitis with airtrapping and has chronic hypoxia (with preserved FEV1) Sig Rigo using her cpap and compliant Chronic pedal edema with erythema pulm htn due to rigo, diastolic heart, and bronchiolitis Morbid obesity Anxiety CKD Chronic anemia REC Cont cpap at hs Diuresis Cont oxygen and wean down to sat of 90 percent Try to reduce narcotics Cont levoxyl Cont symbicort Nebs only if wheezing Lasix Will follow Consult Acknowledgment - Thank you for your consult request.
[2017-09-05 15:23] VITALS: BP 130/78
--- NOTE | 2017-09-05 16:08 | ULTRASOUND REPORT ---
EXAMINATION: US TRIPLEX LOWER EXTREMITY, RIGHT CLINICAL INFORMATION: Pain COMPARISON: None TECHNIQUE: Color-flow triplex imaging with spectral analysis and compression Doppler were performed on the lower extremity. FINDINGS: Respiratory variation, normal compression and augmented flow are noted throughout the lower extremity. The visualized common femoral vein, superficial femoral vein, profunda femoral vein, popliteal vein and midcalf peroneal and posterior tibial venous segments show no evidence of deep venous thrombosis. There is loculated the fluid collection in the anterior mid thigh measure 2.5 x 1.1 x 3 cm, nonspecific, raising concern for possible an abscess, seroma if patient has prior surgery or hematoma. IMPRESSION: 1. Normal triplex scan without evidence of deep venous thrombosis involving the lower extremity. 2. Nonspecific loculated the fluid collection mid depth anterior mid thigh 3 cm, raising concern for possible abscess. May consider cross-sectional imaging with contrast and/or drainage.
--- NOTE | 2017-09-05 20:34 | Cons- Cardiology ---
General Information and HPI Consulting Request Date of Consult: 09/05/17 Requested By: Srinath Baker MD Reason for Consult: Heart failure History of Present Illness: The patient is an 81-year-old female with history of CAD, status post CABG in 2000, status post stent placement in 2012, hypertension, atrial fibrillation, and COPD. She was brought to the hospital by her daughter because of increased weight gain over the past few days. She notes recent shortness of breath which is exacerbated by ambulation. She recently had to increase her home oxygen from 2-3 L. She also notes right lower extremity erythema. No chest pain. No palpitations. No nausea or vomiting. No palpitations. No lightheadedness or dizziness. Allergies/Medications Allergies: Coded Allergies: NO KNOWN ALLERGIES (04/26/13) Home Med List: Albuterol Sulfate 2.5 MG/3 ML (0.083 %) VIAL.NEB 1 Vial INH/SARAH Q6-PRN PRN SHORTNESS OF BREATH (Reported) Amoxicillin/Potassium Clav (Augmentin 875-125 Tablet) 875 MG-125 MG TABLET 1 TAB PO BID cellulitis Apixaban (Eliquis) 2.5 MG TABLET 2.5 MG PO BID ATRIAL FIBRILLATION . Fluticasone/Salmeterol (Advair 250-50 Diskus) 250 MCG-50 MCG/DOSE BLST.W.DEV 1 PUF INH BID PRN SHORTNESS OF BREATH (Reported) Furosemide (Lasix) 40 MG TABLET 1 TAB PO DAILY WATER RETENTION (Reported) Gabapentin 300 MG CAPSULE 1 CAP PO QPM SLEEP (Reported) Insulin Detemir (Levemir Flextouch) 100 UNIT/ML (3 ML) INSULN.PEN 34 U SC DAILY DIABETES (Reported) Isosorbide Mononitrate (Isosorbide Mononitrate ER) 60 MG TAB.ER.24H 1 TAB PO DAILY HEART (Reported) Levothyroxine Sodium 100 MCG TABLET 1 TAB PO DAILY AC THYROID (Reported) Lorazepam 0.5 MG TABLET 1 TAB PO QPMP PRN SLEEP (Reported) Metoprolol Succinate 100 MG TAB.ER.24H 1 TAB PO DAILY HEART (Reported) Omeprazole 40 MG CAPSULE.DR 1 CAP PO QPM ACID REFLUX (Reported) Oxycodone HCl/Acetaminophen (Oxycodone-Acetaminophen 5-325) 5 MG-325 MG TABLET 1 TAB PO BIDP PRN PAIN (Reported) Repaglinide (Prandin) 2 MG TABLET 1 TAB PO TID DIABETES . Simvastatin (Simvastatin*) 40 MG TABLET 1 TAB PO DAILY CHOLESTEROL (Reported) Current Medications: Current Medications Sig/Avery Start time Last Medication Dose Route Stop Time Status Admin Albuterol Sulfate 3 ML TID 09/05 1600 AC 09/05 INH 1838 Amoxicillin/ 500 MG BID 09/05 0015 AC 09/05 Clavulanate Potassium PO 0556 Apixaban 2.5 MG BID 09/04 2329 AC 09/05 PO 0427 Atorvastatin Calcium 40 MG 1700 09/05 1700 AC 09/05 PO 1745 Budesonide/ 2 PUF BID 09/04 2330 AC 09/05 Formoterol Fumarate INH 0845 Furosemide 40 MG DAILY 09/05 1000 AC 09/05 IV 0842 Furosemide 0 .STK-MED ONE 09/04 2108 DC IV Gabapentin 300 MG QPM 09/05 2200 CAN PO Insulin Aspart 0 TIDAC 09/05 0800 AC 09/05 SC 1745 Insulin Detemir 12 UNITS BID 09/04 2345 AC 09/05 SC 1143 Isosorbide 60 MG DAILY 09/05 1000 CAN Mononitrate PO Levothyroxine Sodium 0.1 MG DAILY AC 09/05 0700 AC 09/05 PO 0556 Nystatin 1 W[place]ON BID 09/05 0100 AC 09/05 TOP 0845 Omeprazole 40 MG AT BEDTIME 09/05 2200 AC PO Omeprazole 40 MG DAILY AC 09/05 0700 DC PO Oxycodone/ 2 TAB Q6-PRN PRN 09/05 1130 AC 09/05 Acetaminophen PO 1745 Oxycodone/ 1 TAB Q6-PRN PRN 09/04 2345 DC 09/05 Acetaminophen PO 0558 Oxycodone/ 1 TAB ONCE ONE 09/04 2200 DC 09/05 Acetaminophen PO 09/04 2201 0021 Review of Systems Review of Systems: No rash. No tremor. No melena. All other systems were reviewed, and were noted to be negative. Past History Travel History Traveled to [place] past 21 day No Medical History Blood Transfusion Hx: Yes Neurological: migraine (remote history), NEUROPATHY EENT: NONE Cardiovascular: AFIB, angina, CHF, hypertension, hyperlipidemia, "MULTIPLE MT'S " QUAD BYPASS Respiratory: COPD Gastrointestinal: GERD Hepatic: NONE Renal: NONE Musculoskeletal: NONE Psychiatric: anxiety Endocrine: diabetes, HYPOTHYROID Blood Disorders: NONE Cancer(s): NONE Surgical History Surgical History: appendectomy, arthroscopy, CABG, cholecystectomy, hysterectomy , thyroid lobectomy rotator cuff repair Family History Relations & Conditions If Any: FATHER FH: CABG (coronary artery bypass surgery) FH: diabetes mellitus FH: HTN (hypertension) FH: kidney disease FH: stroke MOTHER FH: myocardial infarction BROTHER FH: heart disease SISTER FH: COPD (chronic obstructive pulmonary disease) FH: heart disease Psychosocial History Where Do You Live? Home Services at Home: None Smoking Status: Never Smoked ETOH Use: denies use Illicit Drug Use: denies illicit drug use Exam & Diagnostic Data Vital Signs and I&O Vital Signs Date Time Temp Pulse Resp B/P B/P Pulse O2 O2 Flow FiO2 Mean Ox Delivery Rate 09/05 1848 97 Nasal 2.0L Cannula 09/05 1600 93 Nasal 2.0L Cannula 09/05 1523 97.3 101 18 130/78 93 09/05 1350 Nasal 2.0L Cannula 09/05 0800 93 Nasal 2.0L Cannula 09/05 0736 97.5 102 18 146/80 93 Nasal 2.0L Cannula 09/05 0128 90 98 09/05 0123 96 Nasal 2.0L Cannula 09/04 2350 93 Nasal 2.0L Cannula 09/04 2336 98.3 93 18 138/70 95 Nasal 2.0L Cannula 09/04 2222 97.8 98 20 130/72 94 Nasal 2.0L Cannula 09/04 2132 Nasal 3.0L Cannula Intake & Output 09/05 1600 09/05 0800 09/05 0000 09/04 1600 09/04 0800 09/04 0000 Intake Total 560 Output Total 600 350 Balance -40 -350 Intake, Oral 560 Output, Urine 600 350 Patient 205 lb 204 lb Weight Weight Standing Scale Standing Scale Measurement Method Physical Exam: Gen: The patient is in no acute distress HEENT: Normal nose, ears, and oropharynx. Pupils equal bilaterally. Conjunctiva normal. Neck: Supple with no JVD, no masses, and no thyromegaly Lungs: Scattered wheezes bilaterally with normal respiratory effort Heart: RRR, S1, S2, no murmurs. 2+ peripheral edema, 2+ pulses in the lower extremities bilaterally Abdomen: Soft, nontender, no masses. No hepatomegaly. No splenomegaly Extremities: No clubbing or cyanosis. Normal muscle strength in the upper and lower extremities Skin: Normal skin turgor right lower extremity erythema Neuro: Cranial nerves intact. Sensation intact Psych: Alert and oriented x 3 with appropriate affect Labs/Shaheed Results: Laboratory Tests 09/05 09/05 09/04 1530 0600 1740 Chemistry Sodium (137 - 145 mmol/L) 136 L Potassium (3.5 - 5.1 mmol/L) 3.8 Chloride (98 - 107 mmol/L) 93 L Carbon Dioxide (22 - 30 mmol/L) 31 H Anion Gap (5 - 16) 13 BUN (7 - 17 mg/dL) 28 H Creatinine (0.5 - 1.0 mg/dL) 1.3 H Estimated GFR (>60 ml/min) 39 L BUN/Creatinine Ratio (7 - 25 %) 21.5 Glucose (65 - 99 mg/dL) 246 H Calcium (8.4 - 10.2 mg/dL) 8.7 Total Bilirubin (0.2 - 1.3 mg/dL) 0.7 AST (14 - 36 U/L) 17 ALT (9 - 52 U/L) 22 Alkaline Phosphatase (<127 U/L) 91 Troponin I (< 0.11 ng/ml) 0.02 0.03 0.02 Aya-J-Krzmrlgbkcb Pept (<125 pg/mL) 1630 H Total Protein (6.3 - 8.2 g/dL) 6.7 Albumin (3.5 - 5.0 g/dL) 3.5 Globulin (1.9 - 4.2 gm/dL) 3.2 Albumin/Globulin Ratio (1.1 - 2.2 %) 1.1 TSH &T3 &Free T4 Intrp (0.270 - 4.20 uIU/mL) 2.200 Hematology CBC w Diff NO MAN DIFF REQ WBC (4.8 - 10.8 /CUMM) 11.4 H RBC (4.20 - 5.40 /CUMM) 3.86 L Hgb (12.0 - 16.0 G/DL) 9.1 L Hct (37 - 47 %) 29.5 L MCV (81.0 - 99.0 FL) 76.4 L MCH (27.0 - 31.0 PG) 23.4 L MCHC (33.0 - 37.0 G/DL) 30.7 L RDW (11.5 - 14.5 %) 23.5 H Plt Count (130 - 400 /CUMM) 283 MPV (7.4 - 10.4 FL) 6.8 L Gran % (42.2 - 75.2 %) 84.0 H Lymphocytes % (20.5 - 51.1 %) 8.7 L Monocytes % (1.7 - 9.3 %) 5.9 Eosinophils % (0 - 5 %) 1.3 Basophils % (0.0 - 2.0 %) 0.1 Absolute Granulocytes (1.4 - 6.5 /CUMM) 9.6 H Absolute Lymphocytes (1.2 - 3.4 /CUMM) 1.0 L Absolute Monocytes (0.10 - 0.60 /CUMM) 0.7 H Absolute Eosinophils (0.0 - 0.7 /CUMM) 0.2 Absolute Basophils (0.0 - 0.2 /CUMM) 0 Diagnostic Data EKG Results EKG tracing is independently reviewed, and reveals atrial fibrillation with ventricular response of 87, poor R-wave progression, nonspecific T-wave abnormality CXR Results Findings suggestive of mild fluid overload. No pleural effusion or consolidation. Other Results Right lower external Doppler study: 1. Normal triplex scan without evidence of deep venous thrombosis involving the lower extremity. 2. Nonspecific loculated the fluid collection mid depth anterior mid thigh 3 cm, raising concern for possible abscess. May consider cross-sectional imaging with contrast and/or drainage. Labs 01/03/17: Technically difficult study. Definity contrast was used. Left ventricular cavity size normal. Left ventricular wall thickness mildly increased. No obvious regional wall motion abnormalities. Left ventricular ejection fraction is estimated at > 55 %. Right ventricle not well visualized. Mildly reduced right ventricular global systolic function. Mild left atrial dilatation. Right ventricular systolic pressure estimated to be elevated at > 60 mmHg. No pericardial effusion. Assessment/Plan Assessment/Plan Assessment: 82-year-old female with history of CAD, hypertension, atrial fibrillation, and COPD presenting with weight gain, increased lower extremity edema, and shortness of breath. Presentation is consistent with acute on chronic heart failure with preserved ejection fraction. She is also noted to have evidence of right lower extremity cellulitis. Recommendations: Would increase Lasix to 40 mg IV every 12 hours Monitor input and output with daily weights Check basic metabolic profile daily Continue anticoagulation with Eliquis Consult Acknowledgment - Thank you for your consult request.
[2017-09-05 22:20] VITALS: BP 122/70
[2017-09-06 07:11] VITALS: BP 124/62
[2017-09-06 07:42] LABS: ABSOLUTE BASOPHIL COUNT 0 /CUMM (0.0-0.2); ABSOLUTE EOSINOPHIL COUNT 0.2 /CUMM (0.0-0.7); ABSOLUTE LYMPH COUNT 1.1 /CUMM (1.2-3.4); ABSOLUTE MONOCYTE COUNT 0.5 /CUMM (0.10-0.60); BASOPHIL % 0.4 % (0.0-2.0); EOSINOPHIL % 1.9 % (0-5); HEMATOCRIT 28.4 % (37-47); MEAN CORPUSCULAR HGB CONC 32.7 G/DL (33.0-37.0); MEAN CORPUSCULAR VOLUME 76.5 FL (81.0-99.0); MEAN PLATELET VOLUME 7.9 FL (7.4-10.4); PLATELET COUNT 247 /CUMM (130-400); RBC DISTRIBUTION WIDTH 22.5 % (11.5-14.5); RED BLOOD CELL CT 3.71 /CUMM (4.20-5.40); WHITE BLOOD CELL COUNT 8.8 /CUMM (4.8-10.8)
--- NOTE | 2017-09-06 08:52 | PN- Housestaff ---
Subjective Follow-up For: Acute on chronic diastolic CHF Right leg cellulitis Tele-Events Since Last Visit: Patient remained in A. fib with heart rate 8994 Subjective: No overnight events. Patient remained afebrile. Seen and examined this morning. Patient denied any chest pain, palpitation, nausea, vomiting, chills, fever, abdominal pain and dysuria. She has exertional short of breath but patient reported that that's her baseline. Patient is using CPAP at nighttime and using 3 L of oxygen and maintaining saturation 95% Review of Systems Constitutional: Denies: chills, fever. EENTM: Reports: no symptoms. Cardiovascular: Denies: chest pain, palpitations. Respiratory: Reports: see HPI. Gastrointestinal: Reports: no symptoms. Genitourinary: Reports: no symptoms. Musculoskeletal: Reports: no symptoms. Neurological/Psychological: Reports: no symptoms. Objective Last 24 Hrs of Vital Signs/I&O Vital Signs Date Time Temp Pulse Resp B/P B/P Pulse O2 O2 Flow FiO2 Mean Ox Delivery Rate 09/06 0909 95 Nasal 2.0L Cannula 09/06 0800 Nasal 2.0L Cannula 09/06 0711 97.7 87 18 124/62 97 BIPAP 09/05 2220 97.5 96 18 122/70 94 BIPAP 09/05 2101 98 96 09/05 1848 97 Nasal 2.0L Cannula 09/05 1600 93 Nasal 2.0L Cannula 09/05 1523 97.3 101 18 130/78 93 09/05 1350 Nasal 2.0L Cannula Intake & Output 09/06 1600 09/06 0800 09/06 0000 Intake Total 280 620 Output Total 250 200 Balance 30 420 Intake, Oral 280 620 Number 0 Bowel Movements Output, Urine 250 200 Physical Exam General Appearance: Alert, Oriented X3, Cooperative Skin: No Rashes Skin Temp/Moisture Exam: Warm/Dry Sepsis Skin Exam (color): Normal for Ethnicity HEENT: Atraumatic, PERRLA, EOMI Neck: Supple Cardiovascular: Normal S1, Normal S2 Lungs: B/L decreased breath sounds with crepitus Abdomen: Soft, No Tenderness Neurological: Normal Speech, Normal Tone Extremities: B/L pedal edema Assessment/Plan Assessment: 82-year-old woman with past medical history of atrial fibrillation on anticoagulation with DOAC, coronary artery disease with prior CABG and subsequent PCI in November of 2012, chronic heart failure with preserved ejection fraction, pulmonary hypertension, hypertension, hyperlipidemia, COPD on 2 L oxygen, migraine, type 2 diabetes, hypothyroidism, anxiety came to the hospital with a chief concern of recent weight gain of approximately 5-10 pounds in the last 1 week, worsening pedal edema, back pain. We'll follow the patient on telemetry floor for following problems: Acute on chronic diastolic CHF: -Supplemental oxygen as needed to keep oxygen saturation above 92% -Continue IV Lasix twice a day -Daily weight -Input and output -Cardiology recommendations -Echocardiogram Right leg cellulitis: -Continue Augmentin -Leg elevation History of A. fib: -Continue Eliquis History of diabetes: -Accu-Cheks -Continue insulin NovoLog according to sliding scale -Continue Levemir 12 units twice a day subcutaneous History of COPD/MARTA: -Continue home medications -Continue CPAP at nighttime -Continue oxygen supplementation DVT prophylaxis: Mechanical and patient will be on Eliquis CODE STATUS: Full code Problem List: 1. Cellulitis 2. CHF (congestive heart failure) Pain Ratin Pain Location: NONE Pain Goal: Remain pain free Pain Plan: PAIN PATHWAY Tomorrow's Labs & Rationales: CBC/BEP
--- NOTE | 2017-09-06 12:07 | PN- Pulmonary ---
Subjective HPI/Critical Care Issues: No overnight events. Patient remained afebrile. Seen and examined this morning. Patient denied any chest pain, palpitation, nausea, vomiting, chills, fever, abdominal pain and dysuria. She has exertional short of breath but patient reported that that's her baseline. Patient is using CPAP at nighttime and using 3 L of oxygen and maintaining saturation 95% Review of Systems Constitutional: Denies: chills, fever. EENTM: Reports: no symptoms. Cardiovascular: Denies: chest pain, palpitations. Respiratory: Reports: see HPI. Gastrointestinal: Reports: no symptoms. Genitourinary: Reports: no symptoms. Musculoskeletal: Reports: no symptoms. Neurological/Psychological: Reports: no symptoms. Objective Current Medications: Current Medications Sig/Avery Start time Last Medication Dose Route Stop Time Status Admin Albuterol Sulfate 3 ML TID 09/05 1600 AC 09/06 INH 0904 Amoxicillin/ 500 MG BID 09/05 0015 AC 09/06 Clavulanate Potassium PO 0831 Apixaban 2.5 MG BID 09/04 2329 AC 09/06 PO 0831 Atorvastatin Calcium 40 MG 1700 09/05 1700 AC 09/05 PO 1745 Budesonide/ 2 PUF BID 09/04 2330 AC 09/06 Formoterol Fumarate INH 0831 Furosemide 40 MG DAILY 09/05 1000 AC 09/06 IV 0831 Insulin Aspart 0 TIDAC 09/05 0800 AC 09/06 SC 0830 Insulin Detemir 12 UNITS BID 09/04 2345 AC 09/06 SC 0830 Levothyroxine Sodium 0.1 MG DAILY AC 09/05 0700 AC 09/06 PO 0627 Nystatin 1 [place]ON BID 09/05 0100 AC 09/06 TOP 0836 Omeprazole 40 MG AT BEDTIME 09/05 2200 AC 09/05 PO 2147 Oxycodone/ 2 TAB Q6-PRN PRN 09/05 1130 AC 09/06 Acetaminophen PO 0631 Vital Signs & I&O Last 24 Hrs of Vitals and I&O: Vital Signs Date Time Temp Pulse Resp B/P B/P Pulse O2 O2 Flow FiO2 Mean Ox Delivery Rate 09/06 0909 95 Nasal 2.0L Cannula 09/06 0800 Nasal 2.0L Cannula 09/06 0711 97.7 87 18 124/62 97 BIPAP 09/05 2220 97.5 96 18 122/70 94 BIPAP 09/05 2101 98 96 09/05 1848 97 Nasal 2.0L Cannula 09/05 1600 93 Nasal 2.0L Cannula 09/05 1523 97.3 101 18 130/78 93 09/05 1350 Nasal 2.0L Cannula Intake & Output 09/06 1600 09/06 0800 04 0000 Intake Total 280 620 Output Total 250 200 Balance 30 420 Intake, Oral 280 620 Number 0 Bowel Movements Output, Urine 250 200 Laboratory Tests 09/06 09/05 09/05 0654 1530 0600 Chemistry Sodium (137 - 145 mmol/L) 135 L Potassium (3.5 - 5.1 mmol/L) 3.9 Chloride (98 - 107 mmol/L) 91 L Carbon Dioxide (22 - 30 mmol/L) 29 Anion Gap (5 - 16) 15 BUN (7 - 17 mg/dL) 27 H Creatinine (0.5 - 1.0 mg/dL) 1.4 H Estimated GFR (>60 ml/min) 36 L BUN/Creatinine Ratio (7 - 25 %) 19.3 Troponin I (< 0.11 ng/ml) 0.02 0.03 Hematology CBC w Diff NO MAN DIFF REQ WBC (4.8 - 10.8 /CUMM) 8.8 RBC (4.20 - 5.40 /CUMM) 3.71 L Hgb (12.0 - 16.0 G/DL) 9.3 L Hct (37 - 47 %) 28.4 L MCV (81.0 - 99.0 FL) 76.5 L MCH (27.0 - 31.0 PG) 25.0 L MCHC (33.0 - 37.0 G/DL) 32.7 L RDW (11.5 - 14.5 %) 22.5 H Plt Count (130 - 400 /CUMM) 247 MPV (7.4 - 10.4 FL) 7.9 Gran % (42.2 - 75.2 %) 80.0 H Lymphocytes % (20.5 - 51.1 %) 12.5 L Monocytes % (1.7 - 9.3 %) 5.2 Eosinophils % (0 - 5 %) 1.9 Basophils % (0.0 - 2.0 %) 0.4 Absolute Granulocytes (1.4 - 6.5 /CUMM) 7.0 H Absolute Lymphocytes (1.2 - 3.4 /CUMM) 1.1 L Absolute Monocytes (0.10 - 0.60 /CUMM) 0.5 Absolute Eosinophils (0.0 - 0.7 /CUMM) 0.2 Absolute Basophils (0.0 - 0.2 /CUMM) 0 /06 1740 Chemistry Sodium (137 - 145 mmol/L) 136 L Potassium (3.5 - 5.1 mmol/L) 3.8 Chloride (98 - 107 mmol/L) 93 L Carbon Dioxide (22 - 30 mmol/L) 31 H Anion Gap (5 - 16) 13 BUN (7 - 17 mg/dL) 28 H Creatinine (0.5 - 1.0 mg/dL) 1.3 H Estimated GFR (>60 ml/min) 39 L BUN/Creatinine Ratio (7 - 25 %) 21.5 Glucose (65 - 99 mg/dL) 246 H Calcium (8.4 - 10.2 mg/dL) 8.7 Total Bilirubin (0.2 - 1.3 mg/dL) 0.7 AST (14 - 36 U/L) 17 ALT (9 - 52 U/L) 22 Alkaline Phosphatase (<127 U/L) 91 Troponin I (< 0.11 ng/ml) 0.02 Ecn-J-Eejeptoykkk Pept (<125 pg/mL) 1630 H Total Protein (6.3 - 8.2 g/dL) 6.7 Albumin (3.5 - 5.0 g/dL) 3.5 Globulin (1.9 - 4.2 gm/dL) 3.2 Albumin/Globulin Ratio (1.1 - 2.2 %) 1.1 TSH &T3 &Free T4 Intrp (0.270 - 4.20 uIU/mL) 2.200 Hematology CBC w Diff NO MAN DIFF REQ WBC (4.8 - 10.8 /CUMM) 11.4 H RBC (4.20 - 5.40 /CUMM) 3.86 L Hgb (12.0 - 16.0 G/DL) 9.1 L Hct (37 - 47 %) 29.5 L MCV (81.0 - 99.0 FL) 76.4 L MCH (27.0 - 31.0 PG) 23.4 L MCHC (33.0 - 37.0 G/DL) 30.7 L RDW (11.5 - 14.5 %) 23.5 H Plt Count (130 - 400 /CUMM) 283 MPV (7.4 - 10.4 FL) 6.8 L Gran % (42.2 - 75.2 %) 84.0 H Lymphocytes % (20.5 - 51.1 %) 8.7 L Monocytes % (1.7 - 9.3 %) 5.9 Eosinophils % (0 - 5 %) 1.3 Basophils % (0.0 - 2.0 %) 0.1 Absolute Granulocytes (1.4 - 6.5 /CUMM) 9.6 H Absolute Lymphocytes (1.2 - 3.4 /CUMM) 1.0 L Absolute Monocytes (0.10 - 0.60 /CUMM) 0.7 H Absolute Eosinophils (0.0 - 0.7 /CUMM) 0.2 Absolute Basophils (0.0 - 0.2 /CUMM) 0 Impression/Plan Impression/Plan Impression/Plan: General Appearance Alert, Oriented X3, Cooperative, No Acute Distress HEENT Atraumatic, PERRLA, EOMI, Mucous Membr. moist/pink Neck Supple Cardiovascular Normal S1, Normal S2 Lungs Normal Air Movement, minimal widespreas wheezes Abdomen Normal Bowel Sounds, Soft, abd distension Neurological Normal Speech, Strength at 5/5 X4 Ext, Normal Tone, Sensation Intact, Cranial Nerves 3-12 NL Extremities bilateral 2 + pitting edema, right LE erythema is receeding from the line marking done in the ED previously to monitor cellulitis Vascular Normal Pulses CXR mild chf IMPRESSION Ms Contreras is an 82-year-old woman with past medical history of atrial fibrillation on anticoagulation with NOAC, coronary artery disease with prior CABG and subsequent PCI in November of 2012, chronic heart failure with preserved ejection fraction, Secondary pulmonary hypertension, hypertension, hyperlipidemia, 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, migraine, type 2 diabetes, hypothyroidism, anxiety * Now with decompensated chf with rt more than left chf with preserved ef * Pt has sig chronic bronchiolitis with airtrapping and has chronic hypoxia ( with preserved FEV1) * Sig Rigo using her cpap and compliant * Chronic pedal edema with erythema, 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
--- NOTE | 2017-09-06 14:18 | PN- Cardiology ---
Subjective Subjective: Shortness of breath is somewhat better. Lower extremity edema is improving. No chest pain. No palpitations. No diaphoresis. No nausea or vomiting Objective Vital Signs and I&Os Vital Signs Date Time Temp Pulse Resp B/P B/P Pulse O2 O2 Flow FiO2 Mean Ox Delivery Rate 09/06 0909 95 Nasal 2.0L Cannula 09/06 08 Nasal 2.0L Cannula 09/06 0711 97.7 87 18 124/62 97 BIPAP 09/05 2220 97.5 96 18 122/70 94 BIPAP 09/05 2101 98 96 09/05 1848 97 Nasal 2.0L Cannula 09/05 1600 93 Nasal 2.0L Cannula 09/05 1523 97.3 101 18 130/78 93 Intake & Output 09/06 0809/06 0000 09/05 0809/05 0000 Intake Total 280 620 560 Output Total 250 200 600 350 Balance 30 420 -40 -350 Intake, Oral 280 620 560 Number 0 Bowel Movements Output, Urine 250 200 600 350 Patient 205 lb 204 lb Weight Weight Standing Scale Standing Scale Measurement Method Physical Exam: Gen: The patient is in no acute distress HEENT: Normal nose, ears, and oropharynx. Pupils equal bilaterally. Conjunctiva normal. Neck: Supple with no JVD, no masses, and no thyromegaly Lungs: Scattered wheezes bilaterally with normal respiratory effort Heart: RRR, S1, S2, no murmurs. 2+ peripheral edema, 2+ pulses in the lower extremities bilaterally Abdomen: Soft, nontender, no masses. No hepatomegaly. No splenomegaly Extremities: No clubbing or cyanosis. Normal muscle strength in the upper and lower extremities Skin: Normal skin turgor, right lower extremity erythema Neuro: Cranial nerves intact. Sensation intact Psych: Alert and oriented x 3 with appropriate affect Current Medications: Current Medications Sig/Avery Start time Last Medication Dose Route Stop Time Status Admin Albuterol Sulfate 3 ML TID 09/05 1600 AC 09/06 INH 1310 Amoxicillin/ 500 MG BID 09/05 0015 AC 09/06 Clavulanate Potassium PO 0831 Apixaban 2.5 MG BID 09/04 2329 AC 09/06 PO 0831 Atorvastatin Calcium 40 MG 1700 09/05 1700 AC 09/05 PO 1745 Budesonide/ 2 PUF BID 09/04 2330 AC 09/06 Formoterol Fumarate INH 0831 Furosemide 40 MG DAILY 09/05 1000 AC 09/06 IV 0831 Insulin Aspart 0 TIDAC 09/05 0800 AC 09/06 SC 1209 Insulin Detemir 12 UNITS BID 09/04 2345 AC 09/06 SC 0830 Levothyroxine Sodium 0.1 MG DAILY AC 09/05 0700 AC 09/06 PO 0627 Nystatin 1 [place] BID 09/05 0100 AC 09/06 TOP 0836 Omeprazole 40 MG AT BEDTIME 09/05 2200 AC 09/05 PO 2147 Oxycodone/ 2 TAB Q6-PRN PRN 09/05 1130 AC 09/06 Acetaminophen PO 1405 Results Last 48 Hrs of Labs/Mics: Laboratory Tests 09/06/17 0654: Anion Gap 15, Estimated GFR 36 L, BUN/Creatinine Ratio 19.3, CBC w Diff NO MAN DIFF REQ, RBC 3.71 L, MCV 76.5 L, MCH 25.0 L, MCHC 32.7 L, RDW 22.5 H, MPV 7.9, Gran % 80.0 H, Lymphocytes % 12.5 L, Monocytes % 5.2, Eosinophils % 1.9, Basophils % 0.4, Absolute Granulocytes 7.0 H, Absolute Lymphocytes 1.1 L, Absolute Monocytes 0.5, Absolute Eosinophils 0.2, Absolute Basophils 0 09/05/17 1530: Troponin I 0.02 09/05/17 0600: Troponin I 0.03 09/04/17 1740: Anion Gap 13, Estimated GFR 39 L, BUN/Creatinine Ratio 21.5, Glucose 246 H, Calcium 8.7, Total Bilirubin 0.7, AST 17, ALT 22, Alkaline Phosphatase 91, Troponin I 0.02, Jjb-U-Yyaizasefmj Pept 1630 H, Total Protein 6.7, Albumin 3.5, Globulin 3.2, Albumin/Globulin Ratio 1.1, TSH &T3 &Free T4 Intrp 2.200, CBC w Diff NO MAN DIFF REQ, RBC 3.86 L, MCV 76.4 L, MCH 23.4 L, MCHC 30.7 L, RDW 23.5 H, MPV 6.8 L, Gran % 84.0 H, Lymphocytes % 8.7 L, Monocytes % 5.9, Eosinophils % 1.3, Basophils % 0.1, Absolute Granulocytes 9.6 H, Absolute Lymphocytes 1.0 L, Absolute Monocytes 0.7 H, Absolute Eosinophils 0.2, Absolute Basophils 0 Assessment/Plan Assessment/Plan Assessment: 1. Atrial fibrillation 2. CAD 2. Hypertension 4. COPD 5. Acute on chronic HFpEF Plan: * Would increase Lasix to 40 mg IV every 12 hours * Monitor input and output with daily weights * Check basic metabolic profile daily * Continue anticoagulation with Eliquis * Continue other cardiac medications Continue telemetry? No
[2017-09-06 14:55] VITALS: BP 140/68
--- NOTE | 2017-09-06 16:52 | ECHOCARDIOGRAM REPORT ---
LOUANN BECKER Age: 82 : 1935 Gender: F Exam Date: 09/06/2017 10:51 Exam Location: [address] Ht (in): 61 Wt (lb): 209 BSA: 2.07 BP: 124 / 62 Ordering Physician: Frankie Page MD Referring Physician: Franky Lara MD Technologist: Danay Garcia [facility] Room Number: 183 Indications: HEART FAILURE Rhythm: Atrial fibrillation Technical Quality: fair FINDINGS Left Ventricle Normal size left ventricle. Left ventricular wall thickness moderately increased. Normal left ventricular ejection fraction estimated at 65-70%. Right Ventricle Mild right ventricular dilatation. Mildly reduced right ventricular global systolic function. Right Atrium Mild right atrial dilatation. Left Atrium Moderate left atrial dilatation. Mitral Valve Mild mitral annular calcification. Trace to mild mitral regurgitation. Aortic Valve Diffuse thickening (sclerosis) of the aortic valve cusps without reduced excursion. Tricuspid Valve Tricuspid valve is normal in structure and function. Mild tricuspid regurgitation. Pulmonic Valve Pulmonic valve not well visualized, grossly normal. Pericardium No pericardial effusion. Great Vessels Normal size aortic root. CONCLUSIONS Normal left ventricular systolic function with moderate concentric hypertrophy. Moderate left atrial enlargement. Mild dilated and hypokinetic Right ventricle. Cannot estimate Pulmonary systolic pressure. Franky Lara M.D. (Electronically Signed) Final Date: 06 September 2017 16:51 MEASUREMENTS (Male / Female) Normal Values 2D ECHO LV Diastolic Diameter PLAX 3.9 cm 4.2 - 5.9 / 3.9 - 5.3 cm LV Systolic Diameter PLAX 2.2 cm 2.1 - 4.0 cm LV Fractional Shortening PLAX 43.6 % 25 - 46 % LV Ejection Fraction 2D Teich 75.4 % IVS Diastolic Thickness 1.5 cm LVPW Diastolic Thickness 1.5 cm LV Relative Wall Thickness 0.8 RV Internal Dim ED PLAX 3.5 cm 1.9 - 3.8 cm LVOT Diameter 1.8 cm Aortic Root Diameter 3.1 cm LA Systolic Diameter LX 5.0 cm 3.0 - 4.0 / 2.7 - 3.8 cm Ascending Aorta Diameter 3.2 cm DOPPLER AV Peak Velocity 130.0 cm/s AV Peak Gradient 6.8 mmHg AV Mean Velocity 85.2 cm/s AV Mean Gradient 3.0 mmHg AV Velocity Time Integral 24.1 cm LVOT Peak Velocity 71.4 cm/s LVOT Peak Gradient 2.0 mmHg LVOT Mean Velocity 55.3 cm/s LVOT Mean Gradient 1.0 mmHg LVOT Velocity Time Integral 12.7 cm LVOT Stroke Volume 32.3 cm AV Area Cont Eq vti 1.3 cm AV Area Cont Eq pk 1.4 cm MV Peak Velocity 125.0 cm/s MV Peak Gradient 6.3 mmHg MV Mean Velocity 63.5 cm/s MV Mean Gradient 2.0 mmHg Mitral E Point Velocity 114.0 cm/s MV PHT Velocity 130.0 cm/s MV Deceleration Dupage 539.0 cm/s MV Pressure Half Time 72.4 ms MV Area PHT 3.0 cm MV Deceleration Time 172.0 ms PV Peak Velocity 80.6 cm/s PV Peak Gradient 2.6 mmHg PV Mean Velocity 48.9 cm/s PV Mean Gradient 1.0 mmHg PV Velocity Time Integral 11.2 cm LV E' Lateral Velocity 13.2 cm/s Mitral E to LV E' Lateral Ratio 8.6 LV E' Septal Velocity 8.5 cm/s Mitral E to LV E' Septal Ratio 13.4
[2017-09-06 22:34] VITALS: BP 132/60
[2017-09-07 06:55] VITALS: BP 102/54
--- NOTE | 2017-09-07 07:26 | PN- Housestaff ---
Jt SAVAGE,[facility] 09/07/17 0725: Subjective Follow-up For: CHF Cellulitis ?abscess of mid thigh Subjective: No acute events overnight. States swelling improved. Asking for benadryl for itching possible due to percocet last night. Review of Systems Constitutional: Reports: see HPI. Objective Last 24 Hrs of Vital Signs/I&O Vital Signs Date Time Temp Pulse Resp B/P B/P Pulse O2 O2 Flow FiO2 Mean Ox Delivery Rate 09/07 0810 92 Nasal 1.0L Cannula 09/07 0655 97.4 94 20 102/54 92 Nasal Cannula 09/07 0054 79 97 09/07 0000 Nasal 1.0L Cannula 09/06 2234 97.1 91 20 132/60 93 Nasal Cannula 09/06 2214 89 97 09/06 1926 98 Nasal 2.0L Cannula 09/06 1455 98.4 115 18 140/68 92 Intake & Output 09/07 1600 09/07 0800 04 0000 Intake Total 100 494 Output Total 300 800 Balance -200 -306 Intake, IV 14 Intake, Oral 100 480 Output, Urine 300 800 Patient 203 lb Weight Physical Exam General Appearance: Alert, Oriented X3, Cooperative Cardiovascular: irregularly irregular Lungs: basilar crackles Abdomen: Normal Bowel Sounds, Soft, No Tenderness Extremities: trace/1+ LE edema. slightly worst on R side Vascular: 2+ radial pulses Current Medications: Current Medications Sig/Avery Start time Last Medication Dose Route Stop Time Status Admin Albuterol Sulfate 3 ML TID 09/05 1600 AC 09/07 INH 0908 Amoxicillin/ 500 MG BID 09/05 0015 AC 09/06 Clavulanate Potassium PO 2120 Apixaban 2.5 MG BID 09/04 2329 AC 09/06 PO 2120 Atorvastatin Calcium 40 MG 1700 09/05 1700 AC 09/06 PO 1750 Budesonide/ 2 PUF BID 09/04 2330 AC 09/06 Formoterol Fumarate INH 2121 Diphenhydramine HCl 25 MG ONCE ONE 09/07 0845 DC IV 09/07 0846 Diphenhydramine HCl 25 MG ONCE ONE 09/06 1800 DC 09/06 PO 09/06 1801 1759 Furosemide 40 MG BID 09/06 2200 AC 09/06 IV 2120 Furosemide 40 MG DAILY 09/05 1000 DC 09/06 IV 0831 Insulin Aspart 0 TIDAC 09/05 0800 AC 09/07 CA 0819 Insulin Detemir 12 UNITS BID 09/04 2345 09/07 SC 0819 Levothyroxine Sodium 0.1 MG DAILY 09/05 0700 09/07 PO 0607 Nystatin 1 [place] BID 09/05 0100 09/06 TOP 2121 Omeprazole 40 MG AT BEDTIME 09/05 2200 09/06 PO 2120 Oxycodone/ 2 TAB Q6-PRN PRN 09/05 1130 09/07 Acetaminophen PO 0819 Last 24 Hrs of Lab/Shaheed Results Last 24 Hrs of Labs/Mics: Laboratory Tests 09/07/17 0715: Anion Gap 13, Estimated GFR 39 L, BUN/Creatinine Ratio 20.0, CBC w Diff NO MAN DIFF REQ, RBC 3.61 L, MCV 76.9 L, MCH 24.7 L, MCHC 32.2 L, RDW 23.5 H, MPV 7.7, Gran % 78.5 H, Lymphocytes % 12.4 L, Monocytes % 6.9, Eosinophils % 1.9, Basophils % 0.3, Absolute Granulocytes 6.6 H, Absolute Lymphocytes 1.0 L, Absolute Monocytes 0.6, Absolute Eosinophils 0.2, Absolute Basophils 0 Assessment/Plan Assessment: 82-year-old woman with past medical history of atrial fibrillation on anticoagulation with DOAC, coronary artery disease with prior quadruple CABG and subsequent PCI in November of 2012, chronic heart failure with preserved ejection fraction, pulmonary hypertension, hypertension, hyperlipidemia, COPD on 2 L oxygen, migraine, type 2 diabetes, hypothyroidism, anxiety came to the hospital with a chief concern of recent weight gain of approximately 5-10 pounds in the last 1 week, worsening pedal edema, back pain. Acute on chronic diastolic CHF: Chest x-ray: suggestive of mild fluid overload. No pleural effusion or consolidation. Echocardiogram: LVEF 65-70%. Mild dilated and hypokinetic Right ventricle -Continue IV Lasix -Daily weight, Input and output -Cardiology recommendations -Continue oxygen, patient is on 2 L at baseline continuous Right leg cellulitis: Venous Doppler negative -Continue Augmentin x10 days total -Leg elevation ?R mid thigh fluid collection US doppler: Nonspecific loculated the fluid collection mid depth anterior mid thigh 3 cm, raising concern for possible abscess WBC improved -cont to monitor History of A. fib: -Continue Eliquis -Patient does not take metoprolol per family History of diabetes: -Accu-Cheks -Continue insulin NovoLog according to sliding scale -Increased Levemir 14 units twice a day subcutaneous History of COPD/MARTA: -cont pulmnoloy recs -Continue home medications -Continue CPAP at nighttime -Continue oxygen supplementation DVT prophylaxis: cont Eliquis CODE STATUS: Full code Problem List: 1. Cellulitis 2. CHF (congestive heart failure) Pain Ratin Pain Location: none Pain Goal: Pain 4 or less Pain Plan: pain pathway Tomorrow's Labs & Rationales: terry Sheehan MD,Julio 09/07/17 1150: Attending MD Review Statement Attending Statement Attending MD Statement: examined this patient, discuss w/resident/PA/[employer], agreed w/resident/PA/[employer], reviewed EMR data (avail), discussed with nursing, discussed with case mgmt Attending Assessment/Plan: Patient seen and examined. This morning she is sitting in chair. She feels a that she has improved and reports less difficulty breathing and decrease edema in legs. Her vital signs are stable she's currently afebrile. Her saturation is 92% on 1 L of oxygen. Chest exam shows minimal crackles at the bases. Bilateral leg edema is noted. There is slight erythema of the lower anterior santos area which has decreased in intensity since admission. Labs show white cell count of 8.4 and hematocrit of 27.7. Sodium is 135 and creatinine is 1.3 with a BUN of 26. These numbers are close to her baseline. Note that a recent the duplex scan had raised the suspicion for loculated fluid collection. However this is not supported by clinical exam. Assessment plan Congestive heart failure with acute exacerbation Right lower leg cellulitis Bilateral edema History of A. fib Morbid obesity COPD and obstructive sleep apnea History of diabetes with uncontrolled glucose Accu-Chek consistently above 200 Plan Continue Augmentin to complete 7-10 days for cellulitis Continue IV Lasix today with plan to switch to oral tomorrow Increase Levemir to 14 units twice a day Plan for discharge home tomorrow
[2017-09-07 07:58] LABS: ABSOLUTE BASOPHIL COUNT 0 /CUMM (0.0-0.2); ABSOLUTE EOSINOPHIL COUNT 0.2 /CUMM (0.0-0.7); ABSOLUTE GRANULOCYTE CT 6.6 /CUMM (1.4-6.5); ABSOLUTE MONOCYTE COUNT 0.6 /CUMM (0.10-0.60); BASOPHIL % 0.3 % (0.0-2.0); EOSINOPHIL % 1.9 % (0-5); GRANULOCYTE % 78.5 % (42.2-75.2); HEMATOCRIT 27.7 % (37-47); MEAN CORPUSCULAR HGB 24.7 PG (27.0-31.0); MEAN CORPUSCULAR HGB CONC 32.2 G/DL (33.0-37.0); MEAN CORPUSCULAR VOLUME 76.9 FL (81.0-99.0); MEAN PLATELET VOLUME 7.7 FL (7.4-10.4); PLATELET COUNT 241 /CUMM (130-400); RBC DISTRIBUTION WIDTH 23.5 % (11.5-14.5); RED BLOOD CELL CT 3.61 /CUMM (4.20-5.40); WHITE BLOOD CELL COUNT 8.4 /CUMM (4.8-10.8)
--- NOTE | 2017-09-07 12:47 | PN- Cardiology ---
Subjective Subjective: Resting comfortably in her chair. Denies any dyspnea at rest. Has not ambulated today. Objective Vital Signs and I&Os Vital Signs Date Time Temp Pulse Resp B/P B/P Pulse O2 O2 Flow FiO2 Mean Ox Delivery Rate 09/07 0910 92 Nasal 1.0L Cannula 09/07 0655 97.4 94 20 102/54 92 Nasal Cannula 09/07 0054 79 97 09/07 0000 Nasal 1.0L Cannula 09/06 2234 97.1 91 20 132/60 93 Nasal Cannula 09/06 2214 89 97 09/06 1926 98 Nasal 2.0L Cannula 09/06 1455 98.4 115 18 140/68 92 Intake & Output 09/07 1600 09/07 0809/07 0000 09/06 1600 09/06 0000 Intake Total 100 494 554 280 620 Output Total 300 800 250 250 200 Balance -200 -306 304 30 420 Intake, IV 14 14 Intake, Oral 100 480 540 280 620 Number 0 Bowel Movements Output, Urine 300 800 250 250 200 Patient 203 lb Weight Physical Exam: General: no apparent distress. Alert. Eyes: No obvious scleral icterus. HEENT: No jugular venous distention or abnormal jugular venous pulsations. Cardiovascular: Normal intensity S1/S2. Irregular Respiratory: Lungs clear to auscultation bilaterally. Abdomen: Soft, nontender with no guarding or rebound tenderness. Musculoskeletal: No clubbing or cyanosis noted; 1+ lower extremity edema Skin: Warm Neurologic: No gross focal deficits noted. Current Medications: Current Medications Sig/Avery Start time Last Medication Dose Route Stop Time Status Admin Albuterol Sulfate 3 ML TID 09/05 1600 AC 09/07 INH 0908 Amoxicillin/ 500 MG BID 09/05 0015 AC 09/07 Clavulanate Potassium PO 1136 Apixaban 2.5 MG BID 09/04 2329 AC 09/07 PO 1136 Atorvastatin Calcium 40 MG 1700 09/05 1700 AC 09/06 PO 1750 Budesonide/ 2 PUF BID 09/04 2330 AC 09/07 Formoterol Fumarate INH 1148 Diphenhydramine HCl 25 MG ONCE ONE 09/07 0845 DC 09/07 IV 09/07 0846 1137 Diphenhydramine HCl 25 MG ONCE ONE 09/06 1800 DC 09/06 PO 09/06 1801 1759 Furosemide 40 MG BID 09/06 2200 AC 09/07 IV 1136 Furosemide 40 MG DAILY 09/05 1000 DC 09/06 IV 0831 Insulin Aspart 0 TIDAC 09/05 0800 AC 09/07 SC 0819 Insulin Detemir 12 UNITS BID 09/04 2345 AC 09/07 SC 0819 Levothyroxine Sodium 0.1 MG DAILY AC 09/05 0700 AC 09/07 PO 0607 Nystatin 1 [place] BID 09/05 0100 AC 09/07 TOP 1100 Omeprazole 40 MG AT BEDTIME 09/05 2200 AC 09/06 PO 2120 Oxycodone/ 2 TAB Q6-PRN PRN 09/05 1130 AC 09/07 [place] 0819 Results Last 48 Hrs of Labs/Mics: Laboratory Tests 09/07/17 0715: Anion Gap 13, Estimated GFR 39 L, BUN/Creatinine Ratio 20.0, CBC w Diff NO MAN DIFF REQ, RBC 3.61 L, MCV 76.9 L, MCH 24.7 L, MCHC 32.2 L, RDW 23.5 H, MPV 7.7, Gran % 78.5 H, Lymphocytes % 12.4 L, Monocytes % 6.9, Eosinophils % 1.9, Basophils % 0.3, Absolute Granulocytes 6.6 H, Absolute Lymphocytes 1.0 L, Absolute Monocytes 0.6, Absolute Eosinophils 0.2, Absolute Basophils 0 09/06/17 0654: Anion Gap 15, Estimated GFR 36 L, BUN/Creatinine Ratio 19.3, CBC w Diff NO MAN DIFF REQ, RBC 3.71 L, MCV 76.5 L, MCH 25.0 L, MCHC 32.7 L, RDW 22.5 H, MPV 7.9, Gran % 80.0 H, Lymphocytes % 12.5 L, Monocytes % 5.2, Eosinophils % 1.9, Basophils % 0.4, Absolute Granulocytes 7.0 H, Absolute Lymphocytes 1.1 L, Absolute Monocytes 0.5, Absolute Eosinophils 0.2, Absolute Basophils 0 09/05/17 1530: Troponin I 0.02 Recent Imaging Studies: Echo: Normal left ventricular systolic function with moderate concentric hypertrophy. Moderate left atrial enlargement. Mild dilated and hypokinetic Right ventricle. Cannot estimate Pulmonary systolic pressure. Telemetry tracings are personally reviewed and showed atrial fibrillation Assessment/Plan Assessment/Plan 1. Chronic heart failure with preserved LV ejection fraction 2. Lower extremity edema with chronic venous insufficiency 3. Chronic renal insufficiency 4. Anemia 5. Atrial fibrillation on chronic anticoagulation with Eliquis 6. Coronary artery disease with prior CABG and subsequent PCI 2012 7. COPD 8. Pulmonary hypertension with mild RV dysfunction Echocardiogram showed normal left ventricular ejection fraction with mild right ventricular global systolic dysfunction; would continue with the IV Lasix while monitoring strict i+o/ daily weights and metabolic panels. she remains in atrial fibrillation with controlled ventricular response rate; continue with the eliquis. She reports no dyspnea at rest; would encourage ambulation today. Chapin Remy MD [facility] Continue telemetry? No
--- NOTE | 2017-09-07 12:50 | PN- Cardiology ---
Subjective Subjective: Error, duplicate note Objective Vital Signs and I&Os Vital Signs ERROR Date Time Temp Pulse Resp B/P B/P Pulse O2 O2 Flow FiO2 Mean Ox Delivery Rate 09/07 0910 92 Nasal 1.0L Cannula 09/07 0655 97.4 94 20 102/54 92 Nasal Cannula 09/07 0054 79 97 09/07 0000 Nasal 1.0L Cannula 09/06 2234 97.1 91 20 132/60 93 Nasal Cannula 09/06 2214 89 97 09/06 1926 98 Nasal 2.0L Cannula 09/06 1455 98.4 115 18 140/68 92 Intake & Output 09/07 1600 09/07 0800 09/07 0000 09/06 1600 09/06 0809/06 0000 Intake Total 100 494 554 280 620 Output Total 300 800 250 250 200 Balance -200 -306 304 30 420 Intake, IV 14 14 Intake, Oral 100 480 540 280 620 Number 0 Bowel Movements Output, Urine 300 800 250 250 200 Patient 203 lb Weight Physical Exam: error, duplicate note Current Medications: Current Medications Sig/Avery Start time Last Medication Dose Route Stop Time Status Admin Albuterol Sulfate 3 ML TID 09/05 1600 AC 09/07 INH 0908 Amoxicillin/ 500 MG BID 09/05 0015 AC 09/07 Clavulanate Potassium PO 1136 Apixaban 2.5 MG BID 09/04 2329 AC 09/07 PO 1136 Atorvastatin Calcium 40 MG 1700 09/05 1700 AC 09/06 PO 1750 Budesonide/ 2 PUF BID 09/04 2330 AC 09/07 Formoterol Fumarate INH 1148 Diphenhydramine HCl 25 MG ONCE ONE 09/07 0845 DC 09/07 IV 09/07 0846 1137 Diphenhydramine HCl 25 MG ONCE ONE 09/06 1800 DC / PO 09/06 1801 1759 Furosemide 40 MG BID 09/06 2200 AC 09/07 IV 1136 Furosemide 40 MG DAILY 09/05 1000 DC 09/06 IV 0831 Insulin Aspart 0 TIDAC 09/05 0800 AC 09/07 SC 0819 Insulin Detemir 12 UNITS BID 09/04 2345 AC 09/07 SC 0819 Levothyroxine Sodium 0.1 MG DAILY AC 09/05 0700 AC 09/07 PO 0607 Nystatin 1 [place] BID 09/05 0100 AC 09/07 TOP 1100 Omeprazole 40 MG AT BEDTIME 09/05 2200 AC 09/06 PO 2120 Oxycodone/ 2 TAB Q6-PRN PRN 09/05 1130 AC 09/07 [place]amin[place] PO 0819 Results Last 48 Hrs of Labs/Mics: Laboratory Tests 09/07/17 0715: Anion Gap 13, Estimated GFR 39 L, BUN/Creatinine Ratio 20.0, CBC w Diff NO MAN DIFF REQ, RBC 3.61 L, MCV 76.9 L, MCH 24.7 L, MCHC 32.2 L, RDW 23.5 H, MPV 7.7, Gran % 78.5 H, Lymphocytes % 12.4 L, Monocytes % 6.9, Eosinophils % 1.9, Basophils % 0.3, Absolute Granulocytes 6.6 H, Absolute Lymphocytes 1.0 L, Absolute Monocytes 0.6, Absolute Eosinophils 0.2, Absolute Basophils 0 09/06/17 0654: Anion Gap 15, Estimated GFR 36 L, BUN/Creatinine Ratio 19.3, CBC w Diff NO MAN DIFF REQ, RBC 3.71 L, MCV 76.5 L, MCH 25.0 L, MCHC 32.7 L, RDW 22.5 H, MPV 7.9, Gran % 80.0 H, Lymphocytes % 12.5 L, Monocytes % 5.2, Eosinophils % 1.9, Basophils % 0.4, Absolute Granulocytes 7.0 H, Absolute Lymphocytes 1.1 L, Absolute Monocytes 0.5, Absolute Eosinophils 0.2, Absolute Basophils 0 09/05/17 1530: Troponin I 0.02 Assessment/Plan Assessment/Plan Error, duplicate note Continue telemetry? Yes Telemetry tracings were personally reviewed and showed atrial fibrillation with ventricular pacing
--- NOTE | 2017-09-07 13:57 | PN- Pulmonary ---
Subjective HPI/Critical Care Issues: Resting comfortably in her chair. Denies any dyspnea at rest. Has not ambulated today. Objective Current Medications: Current Medications Sig/Avery Start time Last Medication Dose Route Stop Time Status Admin Albuterol Sulfate 3 ML TID 09/05 1600 AC 09/07 INH 1326 Amoxicillin/ 500 MG BID 09/05 0015 AC 09/07 Clavulanate Potassium PO 1136 Apixaban 2.5 MG BID 09/04 2329 AC 09/07 PO 1136 Atorvastatin Calcium 40 MG 1700 09/05 1700 AC 09/06 PO 1750 Budesonide/ 2 PUF BID 09/04 2330 AC 09/07 Formoterol Fumarate INH 1148 Diphenhydramine HCl 25 MG ONCE ONE 09/07 0845 DC 09/07 IV 09/07 0846 1137 Diphenhydramine HCl 25 MG ONCE ONE 09/06 1800 DC 09/06 PO 09/06 1801 1759 Furosemide 40 MG BID 09/06 2200 AC 09/07 IV 1136 Furosemide 40 MG DAILY 09/05 1000 DC 09/06 IV 0831 Insulin Aspart 0 TIDAC 09/05 0800 AC 09/07 SC 1348 Insulin Detemir 14 UNITS BID 09/07 2200 AC SC Insulin Detemir 12 UNITS BID 09/04 2345 DC 09/07 SC 0819 Levothyroxine Sodium 0.1 MG DAILY AC 09/05 0700 AC 09/07 PO 0607 Nystatin 1 [place] BID 09/05 0100 AC 09/07 TOP 1100 Omeprazole 40 MG AT BEDTIME 09/05 2200 AC 09/06 PO 2120 Oxycodone/ 2 TAB Q6-PRN PRN 09/05 1130 AC 09/07 Acetaminophen PO 0819 Vital Signs & I&O Last 24 Hrs of Vitals and I&O: Vital Signs Date Time Temp Pulse Resp B/P B/P Pulse O2 O2 Flow FiO2 Mean Ox Delivery Rate 09/07 0810 92 Nasal 1.0L Cannula 09/07 0655 97.4 94 20 102/54 92 Nasal Cannula 09/07 0054 79 97 09/07 0000 Nasal 1.0L Cannula 09/06 2234 97.1 91 20 132/60 93 Nasal Cannula 09/06 2214 89 97 09/06 1926 98 Nasal 2.0L Cannula 09/06 1455 98.4 115 18 140/68 92 Intake & Output 09/07 1600 09/07 0800 09/07 0000 Intake Total 100 494 Output Total 300 800 Balance -200 -306 Intake, IV 14 Intake, Oral 100 480 Output, Urine 300 800 Patient 203 lb Weight Impression/Plan Impression/Plan Impression/Plan: General Appearance Alert, Oriented X3, Cooperative, No Acute Distress HEENT Atraumatic, PERRLA, EOMI, Mucous Membr. moist/pink Neck Supple Cardiovascular Normal S1, Normal S2 Lungs Normal Air Movement, minimal widespreas wheezes Abdomen Normal Bowel Sounds, Soft, abd distension Neurological Normal Speech, Strength at 5/5 X4 Ext, Normal Tone, Sensation Intact, Cranial Nerves 3-12 NL Extremities bilateral 2 + pitting edema, right LE erythema is receeding from the line marking done in the ED previously to monitor cellulitis Vascular Normal Pulses CXR mild chf IMPRESSION Ms Contreras is an 82-year-old woman with past medical history of atrial fibrillation on anticoagulation with NOAC, coronary artery disease with prior CABG and subsequent PCI in November of 2012, chronic heart failure with preserved ejection fraction, Secondary pulmonary hypertension, hypertension, hyperlipidemia, 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, migraine, type 2 diabetes, hypothyroidism, anxiety * Now with improving decompensated chf with rt more than left chf with preserved ef * Pt has sig chronic bronchiolitis with airtrapping and has chronic hypoxia ( with preserved FEV1) * Sig Rigo using her cpap and compliant * Chronic pedal edema with erythema, 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 prn ok to dc pt to follow up with me upon dc
[2017-09-07] MEDS ORDERED: AUGMENTIN 500-1 EACH PO (14:02)
--- NOTE | 2017-09-07 14:06 | Patient Discharge Instructions ---
Discharge Instructions General Discharge Information Special Instructions: Please follow-up with your PCP 1 week. Please follow-up with your mechanical artist in 1 weeks. Please follow-up with a recycle worker in 1 week. We have given you Dr. Gibbons's information. Please watch for any signs of worsening infection. Please take your medications as prescribed. Acute Coronary Syndrome Inclusion Criteria At DC or during hospital stay patient has or had the following: ACS DIAGNOSIS No Discharge Core Measures Meds if any: Prescribed or Continued at Discharge Meds if any: NOT Prescribed or Continued at Discharge Congestive Heart Failure Inclusion Criteria At DC or during hospital stay patient has or had the following: CHF DIAGNOSIS Yes Discharge Core Measures Meds if any: Prescribed or Continued at Discharge Meds if any: NOT Prescribed or Continued at Discharge Cerebrovascular accident Inclusion Criteria At DC or during hospital stay patient has or had the following: CVA/TIA Diagnosis No Discharge Core Measures Meds if any: Prescribed or Continued at Discharge Meds if any: NOT Prescribed or Continued at Discharge Venous thromboembolism Inclusion Criteria VTE Diagnosis No VTE Type NONE VTE Confirmed by (Test) UNILATERAL VENOUS DOPPLER Discharge Core Measures - Per Current guidelines, there needs to be overlap - treatment for the first 5 days of Warfarin therapy. - If discharged on Warfarin prior to 5 days of - overlap therapy, the patient will need to be - assessed for post discharge needs including - *Post discharge parental anticoagulation - *Warfarin and/or parental anticoagulation education - *Follow up date to check INR post discharge At least 5 days overlap therapy as Inpatient No Meds if any: Prescribed or Continued at Discharge Note: Overlap Therapy is Warfarin and Anticoagulant Meds if any: NOT Prescribed or Continued at Discharge
[2017-09-07 14:55] VITALS: BP 110/62
[2017-09-07 22:36] VITALS: BP 128/84
--- NOTE | 2017-09-08 06:20 | PN- Housestaff ---
See Addendum Janice SAVAGE,Rajeev 09/08/17 0600: Subjective Follow-up For: acute on chronic diastolic CHF, Cellulitis Tele-Events Since Last Visit: A fib HR 80s-120s, 5 beats NSVT overnight Subjective: Patient was seen and examined at bedside. She was resting comfortably in chair. She had no acute events overnight. She reports constipation secondary to opioid use. She has no other complaints, and would like to be dischargedd soon. She denies any breath, chest pain, nausea, vomiting, fever, chills. Review of Systems Constitutional: Denies: chills, fever. EENTM: Reports: no symptoms. Cardiovascular: Denies: chest pain, palpitations. Respiratory: Denies: cough, short of breath. Gastrointestinal: Reports: constipation. Genitourinary: Reports: no symptoms. Musculoskeletal: Reports: no symptoms. Skin: Reports: rash. Objective Last 24 Hrs of Vital Signs/I&O Vital Signs Date Time Temp Pulse Resp B/P B/P Pulse O2 O2 Flow FiO2 Mean Ox Delivery Rate 09/08 0556 97.8 102 18 128/80 93 09/08 0625 86 94 09/08 0318 79 96 09/08 0014 89 96 09/08 0000 CPAP 09/07 2236 97.6 92 20 128/84 95 09/07 2216 99 96 09/07 1955 96 Nasal 1.0L Cannula 09/07 1600 Nasal 1.0L Cannula 09/07 1455 97.4 104 18 110/62 96 09/07 0910 92 Nasal 1.0L Cannula Intake & Output 09/08 1600 09/08 0800 09/08 0000 Intake Total 200 214 Output Total 150 850 Balance 50 -636 Intake, IV 14 Intake, Oral 200 200 Output, Urine 150 850 Patient 187 lb Weight Physical Exam General Appearance: Alert, Oriented X3, Cooperative, No Acute Distress Skin Temp/Moisture Exam: Warm/Dry Sepsis Skin Exam (color): Normal for Ethnicity Cardiovascular: Normal S1, Normal S2, irregularly irregular Lungs: Clear to Auscultation, Normal Air Movement Abdomen: Normal Bowel Sounds, Soft, No Tenderness Neurological: Normal Speech, Normal Tone, Sensation Intact Extremities: Trace BLE edema, faint erythema of the distal RLE, no warmth Current Medications: Current Medications Sig/Avery Start time Last Medication Dose Route Stop Time Status Admin Albuterol Sulfate 3 ML TID PRN 09/07 1452 AC 09/07 INH 1952 Albuterol Sulfate 3 ML TID 09/05 1600 DC 09/07 INH 1326 Amoxicillin/ 500 MG BID 09/05 0015 AC 09/08 Clavulanate Potassium PO 0800 Apixaban 2.5 MG BID 09/04 2329 AC 09/08 PO 0800 Atorvastatin Calcium 40 MG 1700 09/05 1700 AC 09/07 PO 1712 Budesonide/ 2 PUF BID 09/04 2330 AC 09/08 Formoterol Fumarate INH 0804 Diphenhydramine HCl 25 MG ONCE ONE 09/07 2245 DC 09/07 PO 09/07 2246 2239 Furosemide 40 MG BID 09/06 2200 AC 09/08 IV 0802 Insulin Aspart 0 TIDAC 09/07 1700 AC 09/08 SC 0801 Insulin Aspart 0 TIDAC 09/05 0800 DC 09/07 SC 1348 Insulin Detemir 14 UNITS BID 09/07 2200 AC 09/08 SC 0801 Insulin Detemir 12 UNITS BID 09/04 2345 DC 09/07 SC 0819 Levothyroxine Sodium 0.1 MG DAILY AC 09/05 0700 AC 09/08 PO 0616 Nystatin 1 [place] BID 09/05 0100 AC 09/08 TOP 0809 Omeprazole 40 MG AT BEDTIME 09/05 2200 AC 09/07 PO 2131 Oxycodone/ 2 TAB Q6-PRN PRN 09/05 1130 AC 09/07 Acetaminophen PO 2236 Patient Medication 1 ED ONE ONE 09/08 0830 PR Teaching ED 09/08 0831 Polyethylene Glycol 17 GM DAILY 09/08 1000 AC PO Last 24 Hrs of Lab/Shaheed Results Last 24 Hrs of Labs/Mics: Laboratory Tests 09/08/17 0650: Anion Gap 11, Estimated GFR 36 L, BUN/Creatinine Ratio 19.3 Assessment/Plan Assessment: Patient is an 82-year-old female with a PMH significant for atrial fibrillation, CAD status post CABG and subsequent PCI and 11/2012, HFpEF, severe pulmonary hypertension, HTN, HLD, COPD on 2 L O2 at baseline, migraines, type II DM, hypothyroidism, anxiety who presented with complaints of weight gain, worsening pedal edema, back pain. #Acute on chronic diastolic HF Echo shows EF 6570 percent with mild dilated and hypokinetic right ventricle, CXR with central vascular prominence, no pleural effusion -Plan to switch to oral furosemide and possible DC today #Right lower extremity cellulitis with fluid collection of the right mid thigh Doppler ultrasound negative for DVT, leukocytosis has improved -Continue Augmentin for a total of 10 day course #A. fib, rate currently controlled -Continue Eliquis for anticoagulation -restart metoprolol succinate at 25 mg #COPD -Taper down to O2 -Follow-up with Dr. Gibbons as outpatient #Chronic medical problems -Continue home medications -Increased Levemir to 14 units twice a day yesterday -Continue Accu-Cheks and NovoLog sliding scale Diet: CHF diet DVT prophylaxis: Kathleen Montoya CODE STATUS: Full code Problem List: 1. COPD (chronic obstructive pulmonary disease) 2. CHF (congestive heart failure) 3. Cellulitis Pain Ratin Pain Location: none Pain Goal: Remain pain free Pain Plan: pain pathway Tomorrow's Labs & Rationales: none Jourdan Fishman MD 09/08/17 1122: Attending MD Review Statement Attending Statement Attending MD Statement: examined this patient, discuss w/resident/PA/DIE ASSEMBLER, agreed w/resident/PA/DIE ASSEMBLER, reviewed EMR data (avail) Attending Assessment/Plan: Doing well today, no complaints. Stable for discharge home. Will discuss with cardiology.
[2017-09-08 06:56] VITALS: BP 128/80
--- NOTE | 2017-09-08 09:41 | PN- Cardiology ---
Subjective Subjective: Patient feels well. She denies chest pain or shortness of breath. She is anxious to go home. Review of Systems: Eyes no blurred or double vision Ears no deafness or ringing Nose and throat no recurrent sinusitis Lungs per history of present illness Heart per history of present illness Abdomen no nausea vomiting Musculoskeletal occasional muscle and joint pains Psych no anxiety or depression Neuro without recurrent headache or seizures Endocrine no heat or cold intolerance Objective Vital Signs and I&Os Vital Signs Date Time Temp Pulse Resp B/P B/P Pulse O2 O2 Flow FiO2 Mean Ox Delivery Rate 09/08 0556 97.8 102 18 128/80 93 09/08 0625 86 94 09/08 0318 79 96 09/08 0014 89 96 09/08 0000 CPAP 09/08 2235 97.6 92 20 128/84 95 09/07 2216 99 96 09/07 1954 96 Nasal 1.0L Cannula 09/08 1599 Nasal 1.0L Cannula 09/07 1455 97.4 104 18 110/62 96 Intake & Output 09/08 1600 09/08 0800 09/08 0000 09/07 1600 09/08 0700 09/07 0000 Intake Total 200 214 480 100 494 Output Total 150 850 600 300 800 Balance 50 -636 -120 -200 -306 Intake, IV 14 14 Intake, Oral 200 200 480 100 480 Output, Urine 150 850 600 300 800 Patient 187 lb 203 lb Weight Physical Exam: Patient is a well-developed well-nourished female appearing in no acute distress HEENT is unremarkable Neck is supple there is no JVD Lungs decreased air entry bilaterally Heart irregular rhythm S1 and S2 are normal no murmurs gallops or rubs Abdomen bowel sounds positive Extremities 2+ edema with erythema right 1+ edema left Current Medications: Current Medications Sig/Avery Start time Last Medication Dose Route Stop Time Status Admin Albuterol Sulfate 3 ML TID PRN 09/07 1452 AC 09/07 INH 1952 Albuterol Sulfate 3 ML TID 09/05 1600 DC 09/07 INH 1326 Amoxicillin/ 500 MG BID 09/05 0015 AC 09/08 Clavulanate Potassium PO 08 Apixaban 2.5 MG BID 09/04 2329 AC 09/08 PO 0800 Atorvastatin Calcium 40 MG 1700 09/05 1700 AC 09/07 PO 1712 Budesonide/ 2 PUF BID 09/04 2330 AC 09/08 Formoterol Fumarate INH 0804 Diphenhydramine HCl 25 MG ONCE ONE 09/07 2245 DC 09/07 PO 09/07 2246 2239 Furosemide 40 MG BID 09/06 2200 AC 09/08 IV 0802 Insulin Aspart 0 TIDAC 09/07 1700 AC 09/08 SC 0801 Insulin Aspart 0 TIDAC 09/05 0800 DC 09/07 SC 1348 Insulin Detemir 14 UNITS BID 09/07 2200 AC 09/08 SC 0801 Insulin Detemir 12 UNITS BID 09/04 2345 DC 09/07 SC 0819 Levothyroxine Sodium 0.1 MG DAILY AC 09/05 0700 AC 09/08 PO 0616 Nystatin 1 [place] BID 09/05 0100 AC 09/08 TOP 0809 Omeprazole 40 MG AT BEDTIME 09/05 220 AC 09/07 PO 2131 Oxycodone/ 2 TAB Q6-PRN PRN 09/05 1130 AC 09/07 Acetaminophen PO 2236 Patient Medication 1 ED ONE ONE 09/08 0830 DC Teaching ED 09/08 0831 Polyethylene Glycol 17 GM DAILY 09/08 1000 AC PO Results Last 48 Hrs of Labs/Mics: Laboratory Tests 09/08/17 0650: Anion Gap 11, Estimated GFR 36 L, BUN/Creatinine Ratio 19.3 09/07/17 0715: Anion Gap 13, Estimated GFR 39 L, BUN/Creatinine Ratio 20.0, CBC w Diff NO MAN DIFF REQ, RBC 3.61 L, MCV 76.9 L, MCH 24.7 L, MCHC 32.2 L, RDW 23.5 H, MPV 7.7, Gran % 78.5 H, Lymphocytes % 12.4 L, Monocytes % 6.9, Eosinophils % 1.9, Basophils % 0.3, Absolute Granulocytes 6.6 H, Absolute Lymphocytes 1.0 L, Absolute Monocytes 0.6, Absolute Eosinophils 0.2, Absolute Basophils 0 Telemetry personally reviewed atrial fibrillation with overall rapid ventricular response Assessment/Plan Assessment/Plan 1. Chronic heart failure with preserved LV ejection fraction 2. Lower extremity edema with chronic venous insufficiency 3. Chronic renal insufficiency 4. Anemia 5. Atrial fibrillation with rapid ventricular response on chronic anticoagulation with Eliquis 6. Coronary artery disease with prior CABG and subsequent PCI 2012 7. COPD 8. Pulmonary hypertension with mild RV dysfunction Recommendations 1. Would transition Lasix to by mouth 2. Ambulate 3. Since her blood pressure has now stabilized and she is found to have rapid atrial fibrillation would resume outpatient metoprolol succinate but at 25 mg daily instead of her usual 100 mg monitoring her blood pressure closely 4. Continue Eliquis for stroke prevention Continue telemetry? Yes
[2017-09-08] MEDS ORDERED: FERROUS SULFAT325 M3 PO (11:17)
[2017-09-08] MEDS ORDERED: LASIX40 M1 PO (11:21)
[2017-09-08] MEDS ORDERED: TOPROL XL25 M1 PO (11:25)
[2017-09-08 13:15] VITALS: BP 144/74
[2017-09-08] MEDS ORDERED: MIRALAX17 G1 PO (13:48)
[2017-09-08] MEDS ORDERED: AUGMENTIN 500-1 EACH PO (13:52)
[2017-09-08 14:50] VITALS: BP 130/60
[2017-09-08 16:12] VITALS: BP 130/60
[2017-09-08] MEDS ORDERED: NYSTATIN15 G1 TOP (16:52)
--- NOTE | 2017-09-09 05:21 | Discharge Summary ---
Visit Information Visit Dates Admission Date: 09/04/17 Discharge Date: 09/08/17 Hospital Course Course Attending Physician: Jourdan Fishman MD Primary Care Physician: Catalino Lobato MD Consulting Request: 1 Consulting Specialty: Cardiology Consulting Request: 2 Consulting Specialty: Pulmonary Disease Hospital Course: Patient is an 82-year-old female with a PMH significant for atrial fibrillation, CAD status post CABG and subsequent PCI and 11/2012, HFpEF, severe pulmonary hypertension, HTN, HLD, COPD on 2 L O2 at baseline, migraines, type II DM, hypothyroidism, anxiety who presented to the [facility] ED with complaints of weight gain, worsening pedal edema, back pain. Vital signs on admission: Blood pressure 124/71, temperature 97.1, pulse 106, respiratory 22, pulse ox 95 on 2 L nasal cannula Labs on admission: WBC 11.4, hemoglobin 9.1, hematocrit 29.5, platelet 283, sodium 136, chloride 93, BUN 28, creatinine 1.3, glucose 246, AST 17, ALT 22 #Acute on chronic diastolic HF Cardiology was consulted. Echo shows EF 6570 percent with mild dilated and hypokinetic right ventricle, CXR with central vascular prominence, no pleural effusion. Patient was aggressively diuresed with IV Lasix. Her oxygen was initially increased from her baseline of 2 L, was able to be weaned down to baseline 2L discharge. Her dyspnea significantly improved throughout her hospitalization, and her lower extremity swelling also improved with Lasix and leg elevation. #Right lower extremity cellulitis with fluid collection of the right mid thigh Patient presented with leukocytosis and erythematous rash on the right lower extremity. She is afebrile throughout her hospitalization. Doppler ultrasound negative for DVT. She was treated with by mouth Augmentin and showed significant improvement of her erythema, she was discharged with a prescription to complete a ten-day course. #A. fib Patient's home dose of Eliquis was continued for anticoagulation. Her blood pressure was borderline and certain instances early in her admission and her home metoprolol succinate 100 mg was initially held, it was restarted upon discharge at 25 mg, she is instructed to follow-up with her lean sensei Dr. Delilah Bahena with the intention to uptitrate as tolerated. #COPD Pulmonology was consulted. Patient was treated with total respiratory care with nebulizations as needed. CPAP was continued at night for MARTA. #Chronic medical problems including CKD stage 3b, DM, hypothyroidism, Patient was treated with NovoLog sliding scale and Levemir with Accu-Cheks before meals and before bedtime, other home medications were continued with the exception of metoprolol, see above. Of note patient presented to the [facility] ED again on 09/10/17 for worsening shortness of breath. She was observed on telemetry floor for 24 hours before she was discharged. At that time it was decided to resume her home dose of metoprolol succinate 100 mg daily her Lasix was also increased to her baseline home dose of 40 mg twice a day. Allergies: Coded Allergies: NO KNOWN ALLERGIES (04/26/13) Significant Procedures: LE Doppler US FINDINGS: Respiratory variation, normal compression and augmented flow are noted throughout the lower extremity. The visualized common femoral vein, superficial femoral vein, profunda femoral vein, popliteal vein and midcalf peroneal and posterior tibial venous segments show no evidence of deep venous thrombosis. There is loculated the fluid collection in the anterior mid thigh measure 2.5 x 1.1 x 3 cm, nonspecific, raising concern for possible an abscess, seroma if patient has prior surgery or hematoma. IMPRESSION: 1. Normal triplex scan without evidence of deep venous thrombosis involving the lower extremity. 2. Nonspecific loculated the fluid collection mid depth anterior mid thigh 3 cm, raising concern for possible abscess. May consider cross-sectional imaging with contrast and/or drainage. ECHO Left Ventricle Normal size left ventricle. Left ventricular wall thickness moderately increased. Normal left ventricular ejection fraction estimated at 65-70%. Right Ventricle Mild right ventricular dilatation. Mildly reduced right ventricular global systolic function. Right Atrium Mild right atrial dilatation. Left Atrium Moderate left atrial dilatation. Mitral Valve Mild mitral annular calcification. Trace to mild mitral regurgitation. Aortic Valve Diffuse thickening (sclerosis) of the aortic valve cusps without reduced excursion. Tricuspid Valve Tricuspid valve is normal in structure and function. Mild tricuspid regurgitation. Pulmonic Valve Pulmonic valve not well visualized, grossly normal. Pericardium No pericardial effusion. Great Vessels Normal size aortic root. CONCLUSIONS Normal left ventricular systolic function with moderate concentric hypertrophy. Moderate left atrial enlargement. Mild dilated and hypokinetic Right ventricle. Cannot estimate Pulmonary systolic pressure. CXR FINDINGS: Surgical clips overlie the mediastinum. Median sternotomy wires appear intact. The lungs are well expanded. Central vascular prominence with mild interstitial prominence. No pleural effusion or pneumothorax. No dense consolidation. The cardiac silhouette is prominent. There is a calcified aorta. IMPRESSION: Findings suggestive of mild fluid overload. No pleural effusion or consolidation. Disposition Summary Disposition Principal Diagnosis: Acute on chronic diastolic CHF Additional Diagnosis: CKD stage 3b, RLE cellulitis, COPD, pulmonary hypertension, A. fib, DM, hypothyroidism, Anemia Discharge Disposition: home health services Discharge Instructions General Discharge Information Code Status: Full Code Patient's Diet: diabetic diet Patient's Activity: as tolerated Follow-Up Instructions/Appts: Follow-up with your PCP 1 week. Follow-up with your lean sensei, Dr. Lara within 1 weeks. Follow-up with a Dr. Gibbons, [facility] 1 week. Medications at Discharge Discharge Medications: Stop taking the following medications: Oxycodone HCl/Acetaminophen (Oxycodone-Acetaminophen 5-325) 5 MG-325 MG TABLET ORAL 2 x Daily as needed as needed for PAIN Qty = 30 Amoxicillin/Potassium Clav (Augmentin 875-125 Tablet) 875 MG-125 MG TABLET ORAL TWICE DAILY Qty = 20 Continue taking these medications: Albuterol Sulfate (Albuterol Sulfate) 2.5 MG/3 ML (0.083 %) VIAL.NEB 1 Vial Inhale Solution EVERY 6 HOURS NEEDED as needed for SHORTNESS OF BREATH Days = 18 Comments: Last Taken: 09/11/17 Time: 2 PM Fluticasone/Salmeterol (Advair 250-50 Diskus) 250 MCG-50 MCG/DOSE BLST.W.DEV 1 Puff Inhale through mouth TWICE DAILY as needed for SHORTNESS OF BREATH Qty = 60 Comments: Last Taken: 09/11/17 Time: 11 AM SYMBICORT GIVEN Isosorbide Mononitrate (Isosorbide Mononitrate ER) 60 MG TAB.ER.24H 1 Tablet ORAL DAILY Qty = 90 Comments: Last Taken:09/11/17 Time:10 AM Levothyroxine Sodium (Levothyroxine Sodium) 100 MCG TABLET 1 Tablet ORAL DAILY BEFORE BREAKFAST Qty = 90 Comments: Last Taken: 09/11/17 Time: 6AM Omeprazole (Omeprazole) 40 MG CAPSULE.DR 1 Capsule ORAL Every night Qty = 30 Comments: Last Taken: 09/10/17 Time: 9PM Simvastatin (Simvastatin*) 40 MG TABLET 1 Tablet ORAL DAILY Qty = 90 Comments: Last Taken: 09/11/17 Time: 4PM PT GIVEN ATORVASTATIN Gabapentin (Gabapentin) 300 MG CAPSULE 1 Capsule ORAL Every night Qty = 30 Comments: Last Taken:09/10/17 Time:10 PM Lorazepam (Lorazepam) 0.5 MG TABLET 1 Tablet ORAL Every night as needed as needed for SLEEP Qty = 30 Comments: NOT GIVEN IN HOSPITAL Repaglinide (Prandin) 2 MG TABLET 1 Tablet ORAL THREE TIMES DAILY Qty = 90 Instructions: . Comments: NOT GIVEN IN HOSPITAL Apixaban (Eliquis) 2.5 MG TABLET 2.5 Milligram ORAL TWICE DAILY Qty = 120 Instructions: . Comments: Last Taken: 09/11/17 Time: 10 AM Furosemide (Lasix) 40 MG TABLET 1 Tablet ORAL DAILY Comments: Last Taken: 09/08/17 Time: 8AM PT GIVEN IV 40MG Insulin Detemir (Levemir Flextouch) 100 UNIT/ML (3 ML) INSULN.PEN 34 Units Inject into fatty tissue DAILY Comments: Last Taken: Time:NOT GIVEN IN HOSPITAL Start taking the following new medications: Augmentin (Augmentin 500-125 Tablet) 500 MG-125 MG TABLET 1 Tablet ORAL TWICE DAILY Qty = 4 No Refills Instructions: . Comments: Last Taken: 09/08/17 Time: 8AM Nystatin (Nystatin) 100,000 UNIT/GRAM CREAM..G. 1 Application On the skin TWICE DAILY Qty = 1 No Refills Instructions: TO AFFECTED AREAS Comments: Last Taken:09/11/17 Time:1 PM Ferrous Sulfate (Ferrous Sulfate) 325 MG (65 MG IRON) TABLET 1 Tablet ORAL DAILY Qty = 30 No Refills Comments: NOT GIVEN IN HOSPITAL Metoprolol Succ XL (Toprol XL) 25 MG TAB 1 Tablet ORAL DAILY Qty = 30 No Refills Comments: Last Taken: 09/08/17 Time: 4PM Polyethylene Glycol 3350 (Miralax) 17 GRAM POWD.PACK 1 Packet ORAL DAILY Qty = 30 No Refills Instructions: dissolve in water Comments: NOT GIVEN IN HOSPITAL Copies To: Brandin SAVAGE,Franky Hernandez; Cheryle SAVAGE,Catalino Ta; Edwige SAVAGE,José Miguel Elkins
== END 2017-09-08 17:10 | disposition home health service (06) | DRG 291 ==
LOC: ERH 16:51 → ERHI 21:34 → 1NO 21:34 → ENRESERV 22:35 → 1NO 23:17 → ENPENDDIS 09-08 13:52 → ENTRNSPT 09-08 16:59 → 1NO 09-08 17:10 → CMPTRNSPT 09-08 17:23
PROVIDERS: Emergency Medicine; Internal Medicine Endocrinology, Diabetes & Metabolism; Student in an Organized Health Care Education/Training Program
DX: I13.0 Hypertensive heart and chronic kidney disease with heart failure and stage 1 through stage 4 chronic kidney disease, or unspecified chronic kidney disease (principal); I50.33 Acute on chronic diastolic (congestive) heart failure; E11.40 Type 2 diabetes mellitus with diabetic neuropathy, unspecified; L03.115 Cellulitis of right lower limb; Z99.81 Dependence on supplemental oxygen; E66.01 Morbid (severe) obesity due to excess calories; I48.2 Chronic atrial fibrillation; G43.909 Migraine, unspecified, not intractable, without status migrainosus; J44.9 Chronic obstructive pulmonary disease, unspecified; I73.9 Peripheral vascular disease, unspecified; Z95.1 Presence of aortocoronary bypass graft; Z68.38 Body mass index [BMI] 38.0-38.9, adult; I25.10 Atherosclerotic heart disease of native coronary artery without angina pectoris; Z95.5 Presence of coronary angioplasty implant and graft; N18.9 Chronic kidney disease, unspecified; Z79.01 Long term (current) use of anticoagulants; Z85.828 Personal history of other malignant neoplasm of skin; Z79.4 Long term (current) use of insulin; Z79.891 Long term (current) use of opiate analgesic; Z79.51 Long term (current) use of inhaled steroids; E78.5 Hyperlipidemia, unspecified; F41.9 Anxiety disorder, unspecified; K21.9 Gastro-esophageal reflux disease without esophagitis; Z90.49 Acquired absence of other specified parts of digestive tract; Z90.710 Acquired absence of both cervix and uterus; E89.0 Postprocedural hypothyroidism; Z82.49 Family history of ischemic heart disease and other diseases of the circulatory system; G47.33 Obstructive sleep apnea (adult) (pediatric); I87.2 Venous insufficiency (chronic) (peripheral); R09.02 Hypoxemia
CPT/HCPCS: 1NP; 36592; 71046; 82436; 93005; 93010; 93306; 96374; J1200; J1940; J3490; Q9957

== ENCOUNTER 2017-09-10 11:24 | Observation (INO) | payer OTHER, MEDICARE ==
[~2017-09-10] VITALS: Ht 154.9 cm; Wt 97.1 kg
[~2017-09-10 11:24] MED LIST changes: +AUGMENTIN 500-1 EACH PO; +FERROUS SULFAT325 M3 PO; +MIRALAX17 G1 PO; +NYSTATIN15 G1 TOP; +TOPROL XL25 M1 PO
[2017-09-10 12:59] LABS: ABSOLUTE BASOPHIL COUNT 0 /CUMM (0.0-0.2); ABSOLUTE EOSINOPHIL COUNT 0.2 /CUMM (0.0-0.7); ABSOLUTE GRANULOCYTE CT 7.6 /CUMM (1.4-6.5); ABSOLUTE LYMPH COUNT 0.9 /CUMM (1.2-3.4); ABSOLUTE MONOCYTE COUNT 0.6 /CUMM (0.10-0.60); BASOPHIL % 0.3 % (0.0-2.0); EOSINOPHIL % 2.6 % (0-5); GRANULOCYTE % 81.2 % (42.2-75.2); HEMATOCRIT 28.8 % (37-47); MEAN CORPUSCULAR HGB 24.5 PG (27.0-31.0); MEAN CORPUSCULAR HGB CONC 31.7 G/DL (33.0-37.0); MEAN CORPUSCULAR VOLUME 77.3 FL (81.0-99.0); MEAN PLATELET VOLUME 7.6 FL (7.4-10.4); PLATELET COUNT 260 /CUMM (130-400); RBC DISTRIBUTION WIDTH 23.7 % (11.5-14.5); RED BLOOD CELL CT 3.73 /CUMM (4.20-5.40); WHITE BLOOD CELL COUNT 9.4 /CUMM (4.8-10.8)
[2017-09-10] MEDS ORDERED: OXYCODONE-ACET1 EACH PO (14:35)
--- NOTE | 2017-09-10 14:49 | ED DYSPNEA/ASTHMA COMPLAINT ---
History of Present Illness General Chief Complaint: General Adult Stated Complaint: GAINED 10 LBS IN 1 NIGHT, HX OF CHF Source: patient, family, old records Exam Limitations: no limitations Allergies Coded Allergies: NO KNOWN ALLERGIES (04/26/13) Reconcile Medications Albuterol Sulfate 2.5 MG/3 ML (0.083 %) VIAL.NEB 1 Vial INH/SARAH Q6-PRN PRN SHORTNESS OF BREATH (Reported) Apixaban (Eliquis) 2.5 MG TABLET 2.5 MG PO BID ATRIAL FIBRILLATION . Augmentin (Augmentin 500-125 Tablet) 500 MG-125 MG TABLET 1 TAB PO BID CELLULITIS . Ferrous Sulfate 325 MG (65 MG IRON) TABLET 1 TAB PO DAILY IRON, VITAMIN Fluticasone/Salmeterol (Advair 250-50 Diskus) 250 MCG-50 MCG/DOSE BLST.W.DEV 1 PUF INH BID PRN SHORTNESS OF BREATH (Reported) Furosemide (Lasix) 40 MG TABLET 1 TAB PO DAILY WATER RETENTION (Reported) Gabapentin 300 MG CAPSULE 1 CAP PO QPM SLEEP (Reported) Insulin Detemir (Levemir Flextouch) 100 UNIT/ML (3 ML) INSULN.PEN 34 U SC DAILY DIABETES (Reported) Isosorbide Mononitrate (Isosorbide Mononitrate ER) 60 MG TAB.ER.24H 1 TAB PO DAILY HEART (Reported) Levothyroxine Sodium 100 MCG TABLET 1 TAB PO DAILY AC THYROID (Reported) Lorazepam 0.5 MG TABLET 1 TAB PO QPMP PRN SLEEP (Reported) Metoprolol Succ XL (Toprol XL) 25 MG TAB 1 TAB PO DAILY atrial fibrillation Nystatin 100,000 UNIT/GRAM CREAM..G. 1 [place] TOP BID FUNGAL RASH TO AFFECTED AREAS Omeprazole 40 MG CAPSULE.DR 1 CAP PO QPM ACID REFLUX (Reported) Oxycodone HCl/Acetaminophen (Oxycodone-Acetaminophen 5-325) 5 MG-325 MG TABLET 1-2 TAB PO Q6P PRN PAIN (Reported) Polyethylene Glycol 3350 (Miralax) 17 GRAM POWD.PACK 1 PAC PO DAILY CONSTIPATION dissolve in water Repaglinide (Prandin) 2 MG TABLET 1 TAB PO TID DIABETES . Simvastatin (Simvastatin*) 40 MG TABLET 1 TAB PO DAILY CHOLESTEROL (Reported) Triage Note: RECENTLY D/C'D FROM HERE FOR CHF EXACERBATION AND PT STATES SHE GAINED 10 LBS FROM LAST NIGHT. PT IS O2 DEPENDENT 2-3LNC. STATES SHE IS UP TO 3 ALL THE TIME NOW. PT DENIES CP. BLE EDEMA AND ABDOMINAL EDEMA Triage Nurses Notes Reviewed? yes Onset: Gradual Duration: day(s): Timing: recent history Severity: moderate HPI: 82yo female with hx of CHF, COPD on 2L O2, afib on eliquis, DM presents to ED complaining of 10lb weight gain over 1 night. Patient was admitted 09/04 for CHF exacerbation and was getting IV Lasix 40 mg twice a day. She was discharged on 09/08 with instructions to take Lasix 40mg daily. Patient's daughter states she has been giving her mother Lasix 40mg BID because that is the dose schedule she was taking prior to hospital admission. When patient was discharged she weighed 187lbs. Daughter reports a weight of 214lbs this AM. Patient also has increasing dyspnea especially worse with slight exertion, requiring 3L O2. Daughter reports increasing swelling around the patient's abdomen and lower extremities bilaterally. The patient denies chest pain, abdominal pain, fevers, or syncope. (Devorah COPELAND,Katia West) Vital Signs & Intake/Output Vital Signs & Intake/Output Vital Signs Date Time Temp Pulse Resp B/P B/P Pulse O2 O2 Flow FiO2 Mean Ox Delivery Rate 09/10 1617 97.3 93 22 129/58 96 Nasal 2.0L Cannula 09/10 1458 Nasal Cannula 09/10 1137 97.5 88 22 122/63 96 Nasal 3.0L Cannula (Sade SAVAGE,Juan Dumont) Past History Travel History Traveled to [place] past 21 day No Medical History Any Pertinent Medical History? see below for history Neurological: migraine (remote history), NEUROPATHY EENT: NONE Cardiovascular: AFIB, angina, CHF, hypertension, hyperlipidemia, "MULTIPLE NC'S " QUAD BYPASS Respiratory: COPD Gastrointestinal: GERD Hepatic: NONE Renal: NONE Musculoskeletal: NONE Psychiatric: anxiety Endocrine: diabetes, HYPOTHYROID Blood Disorders: NONE Cancer(s): NONE History of MRSA: No History of VRE: No History of CDIFF: No Influenza Vaccine: 03/01/17 Surgical History Surgical History: appendectomy, arthroscopy, CABG, cholecystectomy, hysterectomy , thyroid lobectomy rotator cuff repair Psychosocial History Who do you live with Daughter Services at Home None What is your primary language Slovak Tobacco Use: Never used ETOH Use: denies use Illicit Drug Use: denies illicit drug use Family History Family History, If Any: FATHER FH: CABG (coronary artery bypass surgery) FH: diabetes mellitus FH: HTN (hypertension) FH: kidney disease FH: stroke MOTHER FH: myocardial infarction BROTHER FH: heart disease SISTER FH: COPD (chronic obstructive pulmonary disease) FH: heart disease Hx Contributory? No (Katia Cullen) Review of Systems Review of Systems Constitutional: Reports: see HPI. EENTM: Reports: no symptoms. Respiratory: Reports: see HPI. Cardiovascular: Reports: see HPI. GI: Reports: see HPI. Genitourinary: Reports: no symptoms. Musculoskeletal: Reports: no symptoms. Skin: Reports: no symptoms. Neurological/Psychological: Reports: no symptoms. Hematologic/Endocrine: Reports: no symptoms. Immunologic/Allergic: Reports: no symptoms. All Other Systems: Reviewed and Negative (Katia Cullen) Physical Exam Physical Exam General Appearance: well developed/nourished, no apparent distress, alert, awake Head: atraumatic, normal appearance Eyes: Bilateral: normal appearance. Ears, Nose, Throat: hearing grossly normal Neck: normal inspection, supple, full range of motion Respiratory: no respiratory distress, diminished breath sounds bilaterally Cardiovascular: irregularly irregular Peripheral Pulses: 2+ radial (R), 2+ radial (L) Gastrointestinal: normal bowel sounds, non-tender, no organomegaly, mild firmness Extremities: 2-3+ pitting edema bilaterally Neurologic/Psych: awake, alert, oriented x 3 Skin: intact, normal color, warm/dry Core Measures ACS in differential dx? Yes CVA/TIA Diagnosis No Sepsis Present: No Sepsis Focused Exam Completed? No (Katia Cullen) Progress Differential Diagnosis: asthma, AMI, bronchitis, costochondritis, CHF, COPD, musculoskeletal pain, pulmonary embolism, pneumonia, unstable angina Diagnostic Imaging: Viewed by Me: Radiology Read. Discussed w/RAD: Radiology Read. CXR Impression: PATIENT: LOUANN BECKER PRESENT AGE: 82 PATIENT ACCOUNT NO: [id number] : 36 LOCATION: [facility] ORDERING PHYSICIAN: Anthony COPELAND SERVICE DATE: 09/10/17 EXAM TYPE: RAD - XRY-CHEST XRAY, TWO VIEWS EXAMINATION: XR CHEST CLINICAL INFORMATION: Weight gain. Dyspnea. COMPARISON: Chest x-ray 09/04/2017, 08/31/2017, 03/31/2017 TECHNIQUE: 2 views of the chest were obtained. FINDINGS: The heart size is significantly enlarged. This is unchanged since prior study. There is vascular calcifications of the wall of aorta. Patient's had prior median sternotomy. The central hilar vessels are mildly prominent but unchanged since prior chest x-rays. There is no interstitial edema or overt pulmonary edema. There is no pleural effusion. There is no dense consolidation. IMPRESSION: Persistent cardiomegaly and mildly prominent central hilar pulmonary vessels unchanged since prior studies without overt pulmonary edema. DICTATED BY: Sharad Resendiz MD DATE/TIME DICTATED:09/10/171453 PROJECTOR OPERATOR:BREANNA DATE/TIME TRANSCRIBED:09/10/171453 CONFIDENTIAL, DO NOT COPY WITHOUT APPROPRIATE AUTHORIZATION. <Electronically signed in Other Vendor System> SIGNED BY: Sharad Resendiz MD 09/10/17 1500 Initial ED EKG: atrial fibrillation @96bpm, PVCs, RAD, artifact present V4-V5 Prior EKG: unchanged (09/04/17) (Devorah COPELAND,Katia West) Plan of Care: Orders Procedure Date/time Status Heart Healthy Diet 09/11 B Active Patient Data 09/[address] in observation 09/10 1733 Active Misc Message 09/10 1733 Active ED Holding Orders 09/10 1733 Active Vital Signs 09/10 1733 Active Code Status 09/10 1733 Active TROPONIN LEVEL 09/10 1126 Complete COMPREHENSIVE METABOLIC PANEL 09/10 1126 Complete CBC WITHOUT DIFFERENTIAL 09/10 1126 Complete B-TYPE NATRIURETIC PEP (BNP) 09/10 1126 Complete EKG 09/10 1126 Active Current Medications Sig/Avery Start time Last Medication Dose Stop Time Status Admin Oxycodone/ See Dose Q6P PRN 09/10 1500 UNVr 09/10 Acetaminophen Insts (1) 1450 (Percocet) Dose Instructions: (1)Oxycodone/Acetaminophen (Percocet): 1-2 TAB Laboratory Tests 09/10/17 1254: Anion Gap 14, Estimated GFR 36 L, BUN/Creatinine Ratio 20.7, Glucose 212 H, Calcium 8.8, Total Bilirubin 0.8, AST 18, ALT 21, Alkaline Phosphatase 97, Troponin I 0.02, Eij-K-Gjxlljfhkxb Pept 1730 H, Total Protein 7.0, Albumin 4.0, Globulin 3.0, Albumin/Globulin Ratio 1.3, CBC w Diff NO MAN DIFF REQ, RBC 3.73 L, MCV 77.3 L, MCH 24.5 L, MCHC 31.7 L, RDW 23.7 H, MPV 7.6, Gran % 81.2 H, Lymphocytes % 9.8 L, Monocytes % 6.1, Eosinophils % 2.6, Basophils % 0.3, Absolute Granulocytes 7.6 H, Absolute Lymphocytes 0.9 L, Absolute Monocytes 0.6, Absolute Eosinophils 0.2, Absolute Basophils 0 Patient's weight has increased from 187 pounds on 09/08 to 214 pounds today. Chest x-ray stable compared to previous imaging however her BNP is trending upward compared to prior labs. Awaiting cardiology page. Spoke with Parth Remy MD regarding this patient - he requests a formal cardiology consult from house staff. Case management recommend observation. Dr. Stuart spoke with hospitalist regarding this patient's telemetry admission. (Devorah COPELAND,Katia West) Comments: 09/10/2017 5:35:33 PM I have discussed this patient's case with Dr. Kraft. 09/10/2017 5:50:31 PM I have updated the patient and her family on treatment plan. (Sade SAVAGE,Juan Dumont) Departure Departure Disposition: STILL A PATIENT Condition: Stable Clinical Impression Primary Impression: CHF exacerbation Qualifiers: Heart failure type: unspecified Qualified Code: I50.9 - Heart failure, unspecified Secondary Impressions: Weight gain Referrals: Catalino Lobato MD (PCP/Family) Departure Forms: Customer Survey General Discharge Information (Katia Cullen) Observation Note Spoke With: William Kraft MD Physician Advisor Notified: MATT SAVAGE,ALBA [facility] Patient In: Non-ED OBS Care Area Rationale for Observation: My rational for observation is as follows patient presents with a significant weight gain, past medical history of coronary artery disease and congestive heart failure. Given the patient's weight gain I feel she is at risk of congestive heart failure respiratory failure and . The patient has been treated with oral Lasix and has failed outpatient management. I feel she now requires hospitalization for an aggressive IV diuresis and monitoring of intake output and daily weights to assure negative fluid balance. Cardiology consultation should be considered. Patient's medications should be reviewed and are my. Dietary implications should be reviewed as well.. PA/CIRCUIT BREAKER ASSEMBLER Co-Sign Statement Statement: ED Attending supervision documentation- [X] I saw and evaluated the patient. I have also reviewed all the pertinent lab results and diagnostic results. I agree with the findings and the plan of care as documented in the PA's/CIRCUIT BREAKER ASSEMBLER's documentation. Patient presents for evaluation of a substantial weight gain overnight. Patient also states that she was having some increased shortness of breath requiring more oxygen than usual. Physical examination reveals a mildly dyspneic-appearing woman with bilateral lower extremity pitting edema. [] I have reviewed the ED Record and agree with the PA's/CIRCUIT BREAKER ASSEMBLER's documentation. [] Additions or exceptions (if any) to the PAs/CIRCUIT BREAKER ASSEMBLER's note and plan are summarized below: [] (Sade SAVAGE,Juan Dumont) Critical Care Note Critical Care Note Critical Care Time: non-applicable (Devorah COPELAND,Katia West)
--- NOTE | 2017-09-10 15:00 | RADIOLOGY REPORT ---
EXAMINATION: XR CHEST CLINICAL INFORMATION: Weight gain. Dyspnea. COMPARISON: Chest x-ray 09/04/2017, 08/31/2017, 03/31/2017 TECHNIQUE: 2 views of the chest were obtained. FINDINGS: The heart size is significantly enlarged. This is unchanged since prior study. There is vascular calcifications of the wall of aorta. Patient's had prior median sternotomy. The central hilar vessels are mildly prominent but unchanged since prior chest x-rays. There is no interstitial edema or overt pulmonary edema. There is no pleural effusion. There is no dense consolidation. IMPRESSION: Persistent cardiomegaly and mildly prominent central hilar pulmonary vessels unchanged since prior studies without overt pulmonary edema.
--- NOTE | 2017-09-10 17:50 | History & Physical ---
Janice SAVAGE,Rajeev 09/10/17 1068: General Information and HPI MD Statement: I have seen and personally examined LOUANN BECKER and documented this H&P. The patient is a 82 year old F who presented with a patient stated chief complaint of [CHF exacerbation]. Source of Information: patient, family, old records Exam Limitations: no limitations History of Present Illness: Patient is an 82-year-old female with a PMH significant for CAD status post CABG in 2000 with stent placement in 2012, A. fib on Eliquis, hypothyroidism, COPD on 2 L O2 at baseline, who was recently the [facility] for CHF exacerbation who comes in to the ED complaining of significant weight gain, and worsening dyspnea on exertion. She was discharged from [facility] 2 days prior to presentation. Patient was weighs herself daily and states that this morning she has gained 10 pounds, from 204 to 214 pounds in 1 day. She has reported significant dyspnea with minimal exertion, from the walk to the restroom at home she was very short of breath. Although she was discharged on a low dose of Lasix, 40 mg daily, she had increased to 40 mg twice a day. She also had to use increased uptake at home, 3 L up from 2. She noted worsening of her lower extremity edema and waist circumference. At baseline she states her right leg is more swollen than her left secondary to harvesting of the right leg pain for her CABG. She denies any chest pain, palpitations, lightheadedness, syncope. Patient follows with Dr. Franky Lara. Allergies/Medications Allergies: Coded Allergies: NO KNOWN ALLERGIES (04/26/13) Past History Travel History Traveled to [place] past 21 day No Medical History Neurological: migraine (remote history), NEUROPATHY EENT: NONE Cardiovascular: AFIB, angina, CHF, hypertension, hyperlipidemia, "MULTIPLE TX'S " QUAD BYPASS Respiratory: COPD Gastrointestinal: GERD Hepatic: NONE Renal: NONE Musculoskeletal: NONE Psychiatric: anxiety Endocrine: diabetes, HYPOTHYROID Blood Disorders: NONE Cancer(s): NONE History of MRSA: No History of VRE: No History of CDIFF: No Influenza Vaccine: 03/01/17 Surgical History Surgical History: appendectomy, arthroscopy, CABG, cholecystectomy, hysterectomy , thyroid lobectomy rotator cuff repair Past Family/Social History Family History Relations & Conditions if any FATHER FH: CABG (coronary artery bypass surgery) FH: diabetes mellitus FH: HTN (hypertension) FH: kidney disease FH: stroke MOTHER FH: myocardial infarction BROTHER FH: heart disease SISTER FH: COPD (chronic obstructive pulmonary disease) FH: heart disease Psychosocial History Where do you live? Home Who Do You Live With? child Services at Home: Nursing Primary Language: Montenegrin Smoking Status: Never Smoked (significant 2nd hand exposure) ETOH Use: denies use Illicit Drug Use: denies illicit drug use Living Will? yes Functional Ability Ambulation: walker Review of Systems Review of Systems Constitutional: Denies: chills, fever. EENTM: Reports: no symptoms. Cardiovascular: Reports: edema, orthopena, peripheral edema. Denies: chest pain, palpitations, syncope. Respiratory: Reports: short of breath. Denies: cough. GI: Reports: no symptoms. Genitourinary: Reports: no symptoms. Musculoskeletal: Reports: no symptoms. Skin: Reports: no symptoms. Neurological/Psychological: Reports: no symptoms. Hematologic/Endocrine: Reports: no symptoms. Exam & Diagnostic Data Last 24 Hrs of Vital Signs/I&O Vital Signs Date Time Temp Pulse Resp B/P B/P Pulse O2 O2 Flow FiO2 Mean Ox Delivery Rate 09/10 1617 97.3 93 22 129/58 96 Nasal 2.0L Cannula 09/10 1458 Nasal Cannula 09/10 1137 97.5 88 22 122/63 96 Nasal 3.0L Cannula Intake & Output 09/10 1600 09/10 0800 09/10 0000 Intake Total Output Total Balance Patient 214 lb Weight Weight Reported by Patient Measurement Method Physical Exam General Appearance Alert, Oriented X3, Cooperative, No Acute Distress Skin Temp/Moisture Exam: Warm/Dry Sepsis Skin Exam (color): Normal for Ethnicity HEENT Atraumatic, PERRLA, EOMI Cardiovascular Regular Rate, Normal S1, Normal S2 Lungs bibasilar crackles Abdomen Normal Bowel Sounds, Soft, No Tenderness Neurological Normal Speech, Strength at 5/5 X4 Ext, Sensation Intact, Cranial Nerves 3-12 NL Extremities No Clubbing, No Cyanosis, 2+ edema of the LEs bilaterally R>L which is the baseline Body Front and Back (Adult) 1) 2) pressure sore Last 24 Hrs of Labs/Shaheed: Laboratory Tests 09/10/17 1940: Troponin I 0.02 09/10/17 1254: Anion Gap 14, Estimated GFR 36 L, BUN/Creatinine Ratio 20.7, Glucose 212 H, Calcium 8.8, Total Bilirubin 0.8, AST 18, ALT 21, Alkaline Phosphatase 97, Troponin I 0.02, Svj-Z-Phsepeqxhmc Pept 1730 H, Total Protein 7.0, Albumin 4.0, Globulin 3.0, Albumin/Globulin Ratio 1.3, CBC w Diff NO MAN DIFF REQ, RBC 3.73 L, MCV 77.3 L, MCH 24.5 L, MCHC 31.7 L, RDW 23.7 H, MPV 7.6, Gran % 81.2 H, Lymphocytes % 9.8 L, Monocytes % 6.1, Eosinophils % 2.6, Basophils % 0.3, Absolute Granulocytes 7.6 H, Absolute Lymphocytes 0.9 L, Absolute Monocytes 0.6, Absolute Eosinophils 0.2, Absolute Basophils 0 Diagnostic Data CXR Results The heart size is significantly enlarged. This is unchanged since prior study. There is vascular calcifications of the wall of aorta. Patient's had prior median sternotomy. The central hilar vessels are mildly prominent but unchanged since prior chest x-rays. There is no interstitial edema or overt pulmonary edema. There is no pleural effusion. There is no dense consolidation. IMPRESSION: Persistent cardiomegaly and mildly prominent central hilar pulmonary vessels unchanged since prior studies without overt pulmonary edema. Assessment/Plan Assessment: Patient is an 82-year-old female with a PMH significant for CAD status post CABG in 2000 with stent placement in 2012, A. fib on Eliquis, hypothyroidism, COPD on 2 L O2 at baseline, who was recently the [facility] for CHF exacerbation who comes in to the ED complaining of significant weight gain, and worsening dyspnea on exertion. Signs on admission: T 97.5, P 88, RR 22, BP 1-2/60, pulse ox 93% on 3 L O2 Labs: WBC 9.4, H/H9.1/28.8, platelets 260, chloride 91, CO2 31, BUN 29, creatinine 1.4, glucose 212, proBNP 1730, troponin 0.02 Active problem list #CHF exacerbation, with significant weight since discharge 2 days ago #Uncontrolled diabetes with hyperglycemia #Chronic medical problems Plan -place in obs for tele -Continuous telemetry monitoring -IV Lasix 40 mg twice a day, monitor BEP daily -Strict I's and O's and daily weights -Cardiology consult placed with answering service of Dr. Franky Lara -Continue home medications -NovoLog sliding scale and Accu-Cheks 3 times a day before meals and at bedtime -TRC/nebs Diet: Diabetic diet, sodium restricted DVT prophylaxis: Kathleen Montoya CODE STATUS: Full code As Ranked By This Provider Problem List: 1. CHF exacerbation Qualifiers Heart failure type: unspecified Qualified Code: I50.9 - Heart failure, unspecified Observation Initial Note - I have personally examined LOUANN BECKER on 09/11/17 at 0722. The disposition of LOUANN BECKER is uncertain at this time and before a determination can be made, she requires a period of observation for the following reasons [CHF exacerbation] Core Measures/Misc (02/15) Acute Coronary Syndrome ACS Diagnosis: No Congestive Heart Failure Congestive Heart Failure Diagnosis Yes Last Known EF % 65 Cerebrovascular Accident CVA/TIA Diagnosis: No VTE (View Protocol) VTE Risk Factors Obesity No Mechanical VTE Prophylaxis d/t N/A MechProphylax Ordered No VTE Pharm Prophylaxis d/t NA PharmProphylax ordered Sepsis (View protocol) Sepsis Present: No Sheela SAVAGE,[facility] 09/10/17 1751: General Information and HPI Allergies/Medications Home Med list Albuterol Sulfate 2.5 MG/3 ML (0.083 %) VIAL.NEB 1 Vial INH/SARAH Q6-PRN PRN SHORTNESS OF BREATH (Reported) Apixaban (Eliquis) 2.5 MG TABLET 2.5 MG PO BID ATRIAL FIBRILLATION . Ferrous Sulfate 325 MG (65 MG IRON) TABLET 1 TAB PO DAILY IRON, VITAMIN Fluticasone/Salmeterol (Advair 250-50 Diskus) 250 MCG-50 MCG/DOSE BLST.W.DEV 1 PUF INH BID PRN SHORTNESS OF BREATH (Reported) Furosemide (Lasix) 40 MG TABLET 40 MG PO 7:30 AM, & 4:30 PM CHF/Venous insufficiency . Gabapentin 300 MG CAPSULE 1 CAP PO QPM SLEEP (Reported) Insulin Detemir (Levemir Flextouch) 100 UNIT/ML (3 ML) INSULN.PEN 34 U SC DAILY DIABETES (Reported) Isosorbide Mononitrate (Isosorbide Mononitrate ER) 60 MG TAB.ER.24H 1 TAB PO DAILY HEART (Reported) Levothyroxine Sodium 100 MCG TABLET 1 TAB PO DAILY AC THYROID (Reported) Lorazepam 0.5 MG TABLET 1 TAB PO QPMP PRN SLEEP (Reported) Metolazone 2.5 MG TABLET 1 TAB PO DAILY PRN Water retention . Metoprolol Succ XL (Toprol XL) 100 MG TAB.ER.24H 1 TAB PO DAILY HTN . Nystatin 100,000 UNIT/GRAM CREAM..G. 1 WINSTON TOP BID FUNGAL RASH TO AFFECTED AREAS Omeprazole 40 MG CAPSULE.DR 1 CAP PO QPM ACID REFLUX (Reported) Oxycodone HCl/Acetaminophen (Oxycodone-Acetaminophen 5-325) 5 MG-325 MG TABLET 1-2 TAB PO Q6P PRN PAIN (Reported) Polyethylene Glycol 3350 (Miralax) 17 GRAM POWD.PACK 1 PAC PO DAILY CONSTIPATION dissolve in water Repaglinide (Prandin) 2 MG TABLET 1 TAB PO TID DIABETES . Simvastatin (Simvastatin*) 40 MG TABLET 1 TAB PO DAILY CHOLESTEROL (Reported) Resident Review Statement Resident Statement: examined this patient, discussed with human resources intern Other Findings: Ms Becker is pleasant 81-year-old woman with past history significant for coronary artery disease status post CABG in 2000 and stent placement in 2012, hypertension, A. fib on Xarelto, COPD on 2 L of home oxygen history of skin cancer brought in by family due to weight gain which occured over a 48 hour period. Patient was recently discharged from [facility] on 09/08/2017. States that this morning when she woke up and after weighing herself on the same scale 24 hours later she noted her weight gone up by 10 pounds to 214 (from 204lbs). She also reported significant dyspnea with minimal exertion. Patient stated that she was taking 40 mg twice a day despite being recommended that she should take 40 mg of Lasix daily. Daughter also reported that patient's O2 use had increased by a liter. DUring our clinical interaction she denied any fever, chills, nausea, vomiting. Junior Accounting Clerk is Dr Lara. She did endorse some dyspnea and some left shoulder pain. She also endorsed pain in her buttock area. R See Above. E temperature 97.5. Pulse 88. Respirations 22. Blood pressure 122/62. Saturation 96% on nasal cannula 3 L. General Appearance: well developed/nourished, no apparent distress, alert, awake. Son Present in room Head: atraumatic, normal appearance Eyes: Bilateral: normal appearance. Ears, Nose, Throat: hearing grossly normal Neck: normal inspection, supple, full range of motion Respiratory: Crackels notable in lower lung bases Cardiovascular: irregularly irregular Peripheral Pulses: 2+ radial (R), 2+ radial (L) Gastrointestinal: normal bowel sounds, non-tender, no organomegaly, mild firmness Extremitie3+ pitting edema bilaterally Neurologic/Psych: awake, alert, oriented x 3 Skin: intact, normal color, warm/dry, Stage one Ulcer on Right Buttock. Labs As Above. I XRY-CHEST XRAY, TWO VIEWS IMPRESSION: Persistent cardiomegaly and mildly prominent central hilar pulmonary vessels unchanged since prior studies without overt pulmonary edema. A/P 81-year-old woman with past history significant for coronary artery disease status post CABG in 2000 and stent placement in 2012, hypertension, A. fib on Xarelto, COPD on 2 L of home oxygen history of skin cancer brought in by by daughter for evaluation of weight gain Acute decompensated CHF. History of Atrial fibrillation on chronic anticoagulation with Eliquis COPD on 2 L nasal cannula. CKD Continue IV Lasix 40 MG. May consider addition of a different class of diuretic non-loop diuretic to increase medication efficacy. Follow BEP and renal function daily Monitor ins and outs and daily weights. . Cardiogenic consultation in am. Fingersticks and Accuchecks. Conitnue all other home medications DVT prophylaxis with LelaquSrinath Roldan 09/11/17 0222: Attending MD Review Statement Attending Statement Attending MD Statement: examined this patient, discuss w/resident/PA/RACK CARRIER, agreed w/resident/PA/RACK CARRIER, reviewed EMR data (avail), reviewed images, amended to note Attending Assessment/Plan: CC: Weight gain PMH: A. fib, COPD on 2 L nasal cannula, heart failure with preserved ejection fraction, CAD S/P CABG and PCI, pulmonary hypertension, DM, history of thyroid tumor S/P radio ablation, now hypothyroidism, chronic back pain, CKD Patient was recently discharged from hospital on September 08, was admitted for heart failure exacerbation, received IV diuresis, symptomatically improved but patient was discharged on Lasix 40 mg daily. Patient's daughter increased the dose of Lasix to 40 mg 2 times a day on her own on but overnight patient's weight increased by 10 pounds. Patient weighs herself daily, very meticulous with her diet control, no chest pain, cough, chest tightness, upper respiratory symptoms. She has been urinating less than expected and her oxygen level by nasal cannula had to be increased at home. She completed antibiotics for cellulitis. Vitals: Afebrile, pulse 88, RR 22, blood pressure 122/63, saturating 96% on 2 L nasal cannula On exam: A O 3, cooperative, in mild respiratory distress, neck supple, JVD difficult to assess, no lymphadenopathy, mucosa moist, complete neuro exam unremarkable, +3 leg edema right more than left, face is puffy compared to when I admitted her last time. Scar of previous vein grafting on the right side, decubitus ulcer healing, and right buttock CVS: S1-S2, irregular. RS: Bibasilar fine crackles. Abdomen: Soft, NT, distended, fluid thrill present, bowel sounds present. Peripheral pulses perfusion normal. mild tenderness on right side lower back CXR: Persistent cardiomegaly and mildly prominent central hilar pulmonary vessels unchanged since prior studies without overt pulmonary edema. Assessment and plan 82 year old female with extensive past medical history presented in ER for 10 pound weight gain over night, increased leg swelling, increased abdominal girth, increasing oxygen requirement at home secondary to dyspnea. Patient was admitted from September 04 - September 08 for heart failure exacerbation, diuresed aggressively. She had significant weight loss at that time from 92 kg to 84 kg but now again gained weight after discharge. JVD could not be assessed as she cannot lay down from recliner, minimum bibasilar crackles, +3 pitting tense edema present more than previous hospitalization, abdomen is distended and fluid thrill present, face appears puffy as compared to her previous hospitalization. Chest x-ray does not show overt pulmonary edema but has vascular congestion similar to previous. Patient's creatinine is stable. She appears to have acute on chronic heart failure, needing hospitalization for IV diuretic. Discussed possibility of following up with the heart failure clinic after discharge but patient currently gets weekly labs drawn at home, adjustments of Lasix dose at home which will have similar outcomes. Patient is reluctant to go to heart failure clinic because of the access issues (she does not want to be burdensome on her daughter to drive her all places of consultants and clinics). She completed by mouth antibiotics for cellulitis. She has very small decubitus ulcer on the right buttock. We will involve cardiology, consider changing her Lasix to torsemide or bumetanide. Patient may be developing diuretic resistance, eventually adding HCTZ on metolazone could be helpful but have to be cautious with her CKD. + Acute on chronic heart failure with preserved ejection fraction + Hx of A. fib, COPD on 2 L nasal cannula, CAD S/P CABG and PCI, pulmonary hypertension, DM, hypothyroidism, chronic back pain, CKD - Place in observation on telemetry - Continuous telemetry monitoring - Continue O2 by nasal cannula, try to wean to her home level - IV Lasix 40 mg repeat in a.m., reassess for volume status, patient may require Lasix twice a day IV - Strict I's and O's - Daily weights - Cardiology consult in a.m. - DVT prophylaxis - OT PT evaluation - Continue sliding scale insulin, hold other antidiabetic - Continue rest of her home medications
[2017-09-10 23:22] VITALS: BP 136/64
[2017-09-11 06:02] VITALS: BP 112/76
--- NOTE | 2017-09-11 07:13 | PN- Housestaff ---
Janice SAVAGE,Rajeev 09/11/17 0713: Subjective Follow-up For: Dyspnea, multifactorial Weight gain Tele-Events Since Last Visit: Sally. zach HR [id number] Subjective: Patient was seen and examined at bedside. She is resting comfortably. She had no acute events overnight. She had a difficult time sleeping, however she states the common occurrence. She reports mild improvement in her lower extremity edema. Her dyspnea is overall improved and she has been titrated down to her baseline 2 L. Review of Systems Constitutional: Reports: no symptoms. EENTM: Reports: no symptoms. Cardiovascular: Reports: peripheral edema. Denies: chest pain, palpitations. Respiratory: Reports: short of breath (improving). Gastrointestinal: Reports: no symptoms. Genitourinary: Reports: no symptoms. Musculoskeletal: Reports: no symptoms. Objective Last 24 Hrs of Vital Signs/I&O Vital Signs Date Time Temp Pulse Resp B/P B/P Pulse O2 O2 Flow FiO2 Mean Ox Delivery Rate 09/11 0602 97.7 89 18 112/76 97 Nasal Cannula 09/11 0000 Nasal 2.0L Cannula 09/10 2322 97.6 102 18 136/64 96 Nasal Cannula 09/10 2308 96 Nasal 2.0L Cannula 09/10 2222 97.7 101 22 148/68 97 Nasal 2.0L Cannula 09/10 1848 97.9 95 20 136/63 96 Nasal 2.0L Cannula 09/10 1617 97.3 93 22 129/58 96 Nasal 2.0L Cannula 09/10 1458 Nasal Cannula 09/10 1137 97.5 88 22 122/63 96 Nasal 3.0L Cannula Intake & Output 09/11 0800 09/11 0000 09/10 1600 Intake Total 110 240 Output Total 450 Balance -340 240 Intake, IV 10 Intake, Oral 100 240 Output, Urine 450 Patient 214 lb 214 lb Weight Weight Reported by Patient Measurement Method Physical Exam General Appearance: Alert, Oriented X3, Cooperative, No Acute Distress Skin Temp/Moisture Exam: Warm/Dry Cardiovascular: Regular Rate, Normal S1, Normal S2, irregularly irregular rhythm Lungs: minimal crackles at the bases Abdomen: Normal Bowel Sounds, Soft, No Tenderness Current Medications: Current Medications Sig/Avery Start time Last Medication Dose Route Stop Time Status Admin Albuterol Sulfate 3 ML Q6-PRN PRN 09/10 1845 AC INH Apixaban 2.5 MG BID 09/10 2099 AC 09/10 PO 2155 Atorvastatin Calcium 20 MG 1700 09/11 1700 AC PO Budesonide/ 1 PUF BID 09/10 2100 AC Formoterol Fumarate INH Furosemide 40 MG DAILY 09/11 0900 AC IV Furosemide 0 .STK-MED ONE 09/10 1918 DC IV Furosemide 60 MG ONCE ONE 09/10 1730 DC 09/10 IV PUSH 09/10 1731 1935 Gabapentin 300 MG QPM 09/10 2099 AC 09/10 PO 2155 Insulin Aspart 0 AT BEDTIME 09/11 2099 AC SC Insulin Aspart 0 TIDAC 09/11 0800 AC SC Isosorbide 60 MG DAILY 09/11 09 AC Mononitrate PO Levothyroxine Sodium 0.1 MG DAILY AC 09/11 07 AC 09/11 PO 0527 Metoprolol Succinate 25 MG DAILY 09/11 0900 AC PO Nystatin 1 [place] BID 09/10 2100 AC TOP Omeprazole 40 MG QPM 09/10 2100 AC 09/10 PO 2155 Oxycodone/ 2 TAB Q6P PRN 09/10 2330 AC 09/11 Acetaminophen PO 0527 Oxycodone/ 1 TAB Q6P PRN 09/10 2330 AC Acetaminophen PO Oxycodone/ 0 .STK-MED ONE 09/10 1759 DC Acetaminophen PO Oxycodone/ 0 .STK-MED ONE 09/10 1505 DC Acetaminophen PO Oxycodone/ See Dose Q6P PRN 09/10 1500 DC 09/10 Acetaminophen Insts (1) PO 1450 Oxycodone/ 1 TAB ONCE ONE 09/10 1500 DC 09/10 Acetaminophen PO 09/10 1501 1501 Dose Instructions: (1)Oxycodone/Acetaminophen: 1-2 TAB Last 24 Hrs of Lab/Shaheed Results Last 24 Hrs of Labs/Mics: Laboratory Tests 09/10/17 1940: Troponin I 0.02 09/10/17 1254: Anion Gap 14, Estimated GFR 36 L, BUN/Creatinine Ratio 20.7, Glucose 212 H, Calcium 8.8, Total Bilirubin 0.8, AST 18, ALT 21, Alkaline Phosphatase 97, Troponin I 0.02, [id number]-[id number] Pept 1730 H, Total Protein 7.0, Albumin 4.0, Globulin 3.0, Albumin/Globulin Ratio 1.3, CBC w Diff NO MAN DIFF REQ, RBC 3.73 L, MCV 77.3 L, MCH 24.5 L, MCHC 31.7 L, RDW 23.7 H, MPV 7.6, Gran % 81.2 H, Lymphocytes % 9.8 L, Monocytes % 6.1, Eosinophils % 2.6, Basophils % 0.3, Absolute Granulocytes 7.6 H, Absolute Lymphocytes 0.9 L, Absolute Monocytes 0.6, Absolute Eosinophils 0.2, Absolute Basophils 0 Assessment/Plan Assessment: Patient is an 82-year-old female with a PMH significant for CAD status post CABG in 2000 with stent placement in 2012, A. fib on Eliquis, hypothyroidism, COPD on 2 L O2 at baseline, who was recently the [facility] for CHF exacerbation who comes in to the ED complaining of significant weight gain, and worsening dyspnea on exertion. Active problem list #dyspnea, multifactorial Patient had elevated proBNP, was not significantly elevated imaging did not show definitive signs of CHF. To gather a thorough dietary history from the patient or is unlikely that the 10 pound gain shown on the scale was a chair reading. Lower extremity swelling likely more likely due to chronic venous insufficiency -Patient is stable for discharge -Patient will be given a knee scale through the CHF clinic -Patient should follow-up with filter tank tender Dr. Franky Lara within 1 week of discharge -Will be discharged on Lasix 40 mg twice a day with metolazone when necessary #Uncontrolled diabetes with hyperglycemia Fingerstick glucose readings showed some improvement while here -Patient will be discharged on home insulin regimen, and instructions to follow- up with her PCP #Chronic medical problems Continue home medications Diet: Diabetic diet, sodium restricted DVT prophylaxis: Kathleen Montoya CODE STATUS: Full code Problem List: 1. Weight gain 2. Dyspnea Pain Ratin Pain Location: none Pain Goal: Remain pain free Pain Plan: pain pathway Tomorrow's Labs & Rationales: none Jourdan Fishman MD 09/11/17 1045: Attending MD Review Statement Attending Statement Attending MD Statement: examined this patient, discuss w/resident/PA/GASKET NOTCHER, agreed w/resident/PA/GASKET NOTCHER, reviewed EMR data (avail) Attending Assessment/Plan: 82F PMH atrial fibrillation, COPD on 2 L nasal cannula, HFpEF, CAD S/P CABG and PCI, pulmonary hypertension, DM, history of thyroid tumor S/P radio ablation, CKD stage 3, recently discharged after being treated for CHF, went home and weighed herself, and was found to have gained 10 pounds in 1 day. Patient has no new symptoms and feels well. She is breathing comfortably and has trace LE edema. She did not eat any high salt foods. CXR unchanged, EKG NSR, exam benign, labs reviewed. 1. Chronic systolic CHF 2. Unexpected weight gain Plan - Observation on telemetry - IV diuresis - Cardiology consult - Continue home medications - I/O, daily weights - DVT PPx - Anticipated discharge home tomorrow, will follow cardiology recommendations for discharge diuretics
[2017-09-11 08:02] LABS: ABSOLUTE BASOPHIL COUNT 0.1 /CUMM (0.0-0.2); ABSOLUTE EOSINOPHIL COUNT 0.3 /CUMM (0.0-0.7); ABSOLUTE GRANULOCYTE CT 5.1 /CUMM (1.4-6.5); ABSOLUTE LYMPH COUNT 1.1 /CUMM (1.2-3.4); ABSOLUTE MONOCYTE COUNT 0.7 /CUMM (0.10-0.60); BASOPHIL % 0.8 % (0.0-2.0); EOSINOPHIL % 3.6 % (0-5); GRANULOCYTE % 70.3 % (42.2-75.2); HEMATOCRIT 26.5 % (37-47); MEAN CORPUSCULAR HGB 24.9 PG (27.0-31.0); MEAN CORPUSCULAR HGB CONC 32.2 G/DL (33.0-37.0); MEAN CORPUSCULAR VOLUME 77.3 FL (81.0-99.0); MEAN PLATELET VOLUME 8.1 FL (7.4-10.4); PLATELET COUNT 202 /CUMM (130-400); RED BLOOD CELL CT 3.43 /CUMM (4.20-5.40); WHITE BLOOD CELL COUNT 7.3 /CUMM (4.8-10.8)
--- NOTE | 2017-09-11 12:19 | Cons- Cardiology ---
General Information and HPI Consulting Request Date of Consult: 09/11/17 Requested By: Jourdan Fishman MD Reason for Consult: chf Source of Information: patient, old records History of Present Illness: This is an 82-year-old female with a past medical history of chronic heart failure with normal left ventricular ejection fraction, chronic lower extremity edema with chronic venous insufficiency, chronic renal insufficiency, atrial fibrillation on Eliquis, coronary artery disease with prior CABG and subsequent PCI 2012, COPD with pulmonary hypertension and mild right ventricular dysfunction, and obesity who was recently discharged from [place] for CHF but returned due to a reported 10 pound weight gain overnight along with some shortness of breath; she does have chronic intermittent shortness of breath which has not rapidly been increasing and was not associated with any chest pain , dyspnea, or palpitations. Denies bleeding. Denies paroxysmal nocturnal dyspnea. Denies subjective fever. Allergies/Medications Allergies: Coded Allergies: NO KNOWN ALLERGIES (04/26/13) Home Med List: Albuterol Sulfate 2.5 MG/3 ML (0.083 %) VIAL.NEB 1 Vial INH/SARAH Q6-PRN PRN SHORTNESS OF BREATH (Reported) Apixaban (Eliquis) 2.5 MG TABLET 2.5 MG PO BID ATRIAL FIBRILLATION . Augmentin (Augmentin 500-125 Tablet) 500 MG-125 MG TABLET 1 TAB PO BID CELLULITIS . Ferrous Sulfate 325 MG (65 MG IRON) TABLET 1 TAB PO DAILY IRON, VITAMIN Fluticasone/Salmeterol (Advair 250-50 Diskus) 250 MCG-50 MCG/DOSE BLST.W.DEV 1 PUF INH BID PRN SHORTNESS OF BREATH (Reported) Furosemide (Lasix) 40 MG TABLET 1 TAB PO DAILY WATER RETENTION (Reported) Gabapentin 300 MG CAPSULE 1 CAP PO QPM SLEEP (Reported) Insulin Detemir (Levemir Flextouch) 100 UNIT/ML (3 ML) INSULN.PEN 34 U SC DAILY DIABETES (Reported) Isosorbide Mononitrate (Isosorbide Mononitrate ER) 60 MG TAB.ER.24H 1 TAB PO DAILY HEART (Reported) Levothyroxine Sodium 100 MCG TABLET 1 TAB PO DAILY AC THYROID (Reported) Lorazepam 0.5 MG TABLET 1 TAB PO QPMP PRN SLEEP (Reported) Metoprolol Succ XL (Toprol XL) 25 MG TAB 1 TAB PO DAILY atrial fibrillation Nystatin 100,000 UNIT/GRAM CREAM..G. 1 [place] TOP BID FUNGAL RASH TO AFFECTED AREAS Omeprazole 40 MG CAPSULE. 1 CAP PO QPM ACID REFLUX (Reported) Oxycodone HCl/Acetaminophen (Oxycodone-Acetaminophen 5-325) 5 MG-325 MG TABLET 1-2 TAB PO Q6P PRN PAIN (Reported) Polyethylene Glycol 3350 (Miralax) 17 GRAM POWD.PACK 1 PAC PO DAILY CONSTIPATION dissolve in water Repaglinide (Prandin) 2 MG TABLET 1 TAB PO TID DIABETES . Simvastatin (Simvastatin*) 40 MG TABLET 1 TAB PO DAILY CHOLESTEROL (Reported) Current Medications: Current Medications Sig/Avery Start time Last Medication Dose Route Stop Time Status Admin Albuterol Sulfate 3 ML TID 09/11 1400 AC INH Albuterol Sulfate 3 ML Q6-PRN PRN 09/10 1845 DC INH Apixaban 2.5 MG BID 09/10 2100 AC 09/11 PO 1037 Atorvastatin Calcium 20 MG 1700 09/11 1700 AC PO Budesonide/ 1 PUF BID 09/10 2100 AC 09/11 Formoterol Fumarate INH 1044 Furosemide 40 MG DAILY 09/11 0900 AC 09/11 IV 1044 Furosemide 0 .STK-MED ONE 09/10 1918 DC IV Furosemide 60 MG ONCE ONE 09/10 1730 DC 09/10 IV PUSH 09/10 1731 1935 Gabapentin 300 MG QPM 09/10 2100 AC 09/10 PO 2155 Insulin Aspart 0 AT BEDTIME 09/11 2100 AC SC Insulin Aspart 0 TIDAC 09/11 0800 AC SC Isosorbide 60 MG DAILY 09/11 0900 AC 09/11 Mononitrate PO 1036 Levothyroxine Sodium 0.1 MG DAILY AC 09/11 0700 AC 09/11 PO 0527 Metoprolol Succinate 25 MG ONCE ONE 09/11 0915 DC 09/11 PO 09/11 0916 1038 Metoprolol Succinate 25 MG DAILY 09/11 0900 AC 09/11 PO 1037 Nystatin 1 [place] TID 09/11 1052 AC TOP Nystatin 1 [place] BID 09/10 2100 DC TOP Omeprazole 40 MG QPM 09/10 2100 AC 09/10 PO 2155 Oxycodone/ 2 TAB Q6P PRN 09/10 2330 AC 09/11 Acetaminophen PO 1156 Oxycodone/ 1 TAB Q6P PRN 09/10 2330 AC Acetaminophen PO Oxycodone/ 0 .STK-MED ONE 09/10 1759 DC Acetaminophen PO Oxycodone/ 0 .STK-MED ONE 09/10 1505 DC Acetaminophen PO Oxycodone/ See Dose Q6P PRN 09/10 1500 DC 09/10 Acetaminophen Insts (1) PO 1450 Oxycodone/ 1 TAB ONCE ONE 09/10 1500 DC 09/10 Acetaminophen PO 09/10 1501 1501 Dose Instructions: (1)Oxycodone/Acetaminophen: 1-2 TAB Review of Systems Review of Systems: Review of systems as per HPI. The remainder of a 10 point review of systems was reviewed and was otherwise negative. Past History Travel History Traveled to [place] past 21 day No Medical History Blood Transfusion Hx: No Neurological: migraine (remote history), NEUROPATHY EENT: NONE Cardiovascular: AFIB, angina, CHF, hypertension, hyperlipidemia, "MULTIPLE PA'S " QUAD BYPASS Respiratory: COPD Gastrointestinal: GERD Hepatic: NONE Renal: NONE Musculoskeletal: NONE Psychiatric: anxiety Endocrine: diabetes, HYPOTHYROID Blood Disorders: NONE Cancer(s): NONE CELERY STRIPPER/Reproductive: NONE Surgical History Surgical History: appendectomy, arthroscopy, CABG, cholecystectomy, hysterectomy , thyroid lobectomy rotator cuff repair Family History Relations & Conditions If Any: FATHER FH: CABG (coronary artery bypass surgery) FH: diabetes mellitus FH: HTN (hypertension) FH: kidney disease FH: stroke MOTHER FH: myocardial infarction BROTHER FH: heart disease SISTER FH: COPD (chronic obstructive pulmonary disease) FH: heart disease Psychosocial History Where Do You Live? Home Who Do You Live With? child Services at Home: Nursing Primary Language: German Smoking Status: Never Smoked (significant 2nd hand exposure) ETOH Use: denies use Illicit Drug Use: denies illicit drug use Living Will? yes Functional Ability Ambulation: walker Exam & Diagnostic Data Vital Signs and I&O Vital Signs Date Time Temp Pulse Resp B/P B/P Pulse O2 O2 Flow FiO2 Mean Ox Delivery Rate 09/11 1038 78 132/68 09/11 1037 78 132/68 09/11 1036 78 132/68 09/11 0920 Nasal 2.0L Cannula 09/11 0602 97.7 89 18 112/76 97 Nasal Cannula 09/11 0000 Nasal 2.0L Cannula 09/10 2322 97.6 102 18 136/64 96 Nasal Cannula 09/10 2308 96 Nasal 2.0L Cannula 09/102 97.7 101 22 148/68 97 Nasal 2.0L Cannula 09/10 1848 97.9 95 20 136/63 96 Nasal 2.0L Cannula 09/10 1617 97.3 93 22 129/58 96 Nasal 2.0L Cannula 09/10 1458 Nasal Cannula Intake & Output 09/11 1600 09/11 0800 09/11 0000 09/10 1600 09/10 0800 09/10 0000 Intake Total 110 240 Output Total 450 Balance -340 240 Intake, IV 10 Intake, Oral 100 240 Output, Urine 450 Patient 214 lb 214 lb Weight Weight Reported by Patient Measurement Method Physical Exam: General: no apparent distress. Alert. Eyes: No obvious scleral icterus. HEENT: No jugular venous distention or abnormal jugular venous pulsations. Cardiovascular: Normal intensity S1/S2. Irregular Respiratory: Lungs clear to auscultation bilaterally. Abdomen: Soft, nontender with no guarding or rebound tenderness. Musculoskeletal: No clubbing or cyanosis noted; 1+ lower extremity edema Skin: Warm Neurologic: No gross focal deficits noted. Labs/Shaheed Results: Laboratory Tests 09/11 09/10 0645 1940 Chemistry Sodium (137 - 145 mmol/L) 136 L Potassium (3.5 - 5.1 mmol/L) 3.7 Chloride (98 - 107 mmol/L) 93 L Carbon Dioxide (22 - 30 mmol/L) 31 H Anion Gap (5 - 16) 12 BUN (7 - 17 mg/dL) 27 H Creatinine (0.5 - 1.0 mg/dL) 1.3 H Estimated GFR (>60 ml/min) 39 L BUN/Creatinine Ratio (7 - 25 %) 20.8 Troponin I (< 0.11 ng/ml) 0.02 Hematology CBC w Diff NO MAN DIFF REQ WBC (4.8 - 10.8 /CUMM) 7.3 RBC (4.20 - 5.40 /CUMM) 3.43 L Hgb (12.0 - 16.0 G/DL) 8.5 L Hct (37 - 47 %) 26.5 L MCV (81.0 - 99.0 FL) 77.3 L MCH (27.0 - 31.0 PG) 24.9 L MCHC (33.0 - 37.0 G/DL) 32.2 L RDW (11.5 - 14.5 %) 23.0 H Plt Count (130 - 400 /CUMM) 202 MPV (7.4 - 10.4 FL) 8.1 Gran % (42.2 - 75.2 %) 70.3 Lymphocytes % (20.5 - 51.1 %) 15.1 L Monocytes % (1.7 - 9.3 %) 10.2 H Eosinophils % (0 - 5 %) 3.6 Basophils % (0.0 - 2.0 %) 0.8 Absolute Granulocytes (1.4 - 6.5 /CUMM) 5.1 Absolute Lymphocytes (1.2 - 3.4 /CUMM) 1.1 L Absolute Monocytes (0.10 - 0.60 /CUMM) 0.7 H Absolute Eosinophils (0.0 - 0.7 /CUMM) 0.3 Absolute Basophils (0.0 - 0.2 /CUMM) 0.1 09/10 1254 Chemistry Sodium (137 - 145 mmol/L) 137 Potassium (3.5 - 5.1 mmol/L) 4.3 Chloride (98 - 107 mmol/L) 91 L Carbon Dioxide (22 - 30 mmol/L) 31 H Anion Gap (5 - 16) 14 BUN (7 - 17 mg/dL) 29 H Creatinine (0.5 - 1.0 mg/dL) 1.4 H Estimated GFR (>60 ml/min) 36 L BUN/Creatinine Ratio (7 - 25 %) 20.7 Glucose (65 - 99 mg/dL) 212 H Calcium (8.4 - 10.2 mg/dL) 8.8 Total Bilirubin (0.2 - 1.3 mg/dL) 0.8 AST (14 - 36 U/L) 18 ALT (9 - 52 U/L) 21 Alkaline Phosphatase (<127 U/L) 97 Troponin I (< 0.11 ng/ml) 0.02 [id number] Pept (<125 pg/mL) 1730 H Total Protein (6.3 - 8.2 g/dL) 7.0 Albumin (3.5 - 5.0 g/dL) 4.0 Globulin (1.9 - 4.2 gm/dL) 3.0 Albumin/Globulin Ratio (1.1 - 2.2 %) 1.3 Hematology CBC w Diff NO MAN DIFF REQ WBC (4.8 - 10.8 /CUMM) 9.4 RBC (4.20 - 5.40 /CUMM) 3.73 L Hgb (12.0 - 16.0 G/DL) 9.1 L Hct (37 - 47 %) 28.8 L MCV (81.0 - 99.0 FL) 77.3 L MCH (27.0 - 31.0 PG) 24.5 L MCHC (33.0 - 37.0 G/DL) 31.7 L RDW (11.5 - 14.5 %) 23.7 H Plt Count (130 - 400 /CUMM) 260 MPV (7.4 - 10.4 FL) 7.6 Gran % (42.2 - 75.2 %) 81.2 H Lymphocytes % (20.5 - 51.1 %) 9.8 L Monocytes % (1.7 - 9.3 %) 6.1 Eosinophils % (0 - 5 %) 2.6 Basophils % (0.0 - 2.0 %) 0.3 Absolute Granulocytes (1.4 - 6.5 /CUMM) 7.6 H Absolute Lymphocytes (1.2 - 3.4 /CUMM) 0.9 L Absolute Monocytes (0.10 - 0.60 /CUMM) 0.6 Absolute Eosinophils (0.0 - 0.7 /CUMM) 0.2 Absolute Basophils (0.0 - 0.2 /CUMM) 0 Diagnostic Data EKG Results Tracing was personally reviewed and shows atrial fibrillation 97 bpm with poor R -wave progression CXR Results Persistent cardiomegaly and mildly prominent central hilar pulmonary vessels unchanged since prior studies without overt pulmonary edema. Other Results Telemetry tracings are personally reviewed and showed atrial fibrillation with controlled ventricular response rate Assessment/Plan Assessment/Plan 1. Chronic heart failure with preserved LV ejection fraction 2. Lower extremity edema with chronic venous insufficiency 3. Chronic renal insufficiency 4. Anemia 5. Atrial fibrillation on chronic anticoagulation with Eliquis 6. Coronary artery disease with prior CABG and subsequent PCI 2012 7. COPD 8. Pulmonary hypertension with mild RV dysfunction 9. Obesity At this time I am not convinced the patient has recurrent CHF decompensation; her BNP is not very elevated and her chest x-ray shows no overt pulmonary edema. I think it is unlikely that she gained 10 pounds of fluid within 1 night and in the past it seems her weight fluctuations have not correlated well with her fluid status. She does have lower extremity edema but a large component of this is due to chronic venous insufficiency. Her heart rate remains well controlled. She does have chronic intermittent shortness of breath which is likely multifactorial in the setting of COPD with pulmonary hypertension, CHF, anemia, and obesity. At this time I do not think she needs further IV Lasix and can try increasing Lasix to 40 mg p.o. twice daily with the plan for potentially adding Zaroxolyn as an outpatient on a PRN basis in the future if required. She should follow-up in our office within 1 week of discharge. Please do not hesitate to contact me with any additional questions or concerns. Chapin Remy MD [facility] Consult Acknowledgment - Thank you for your consult request.
[2017-09-11] MEDS ORDERED: LASIX40 M1 PO ×2 (12:52→13:37)
[2017-09-11] MEDS ORDERED: TOPROL XL100 M1 PO ×2 (12:57→13:37)
[2017-09-11] MEDS ORDERED: METOLAZONE2.5 M1 PO ×2 (12:57→13:37)
--- NOTE | 2017-09-11 13:00 | Patient Discharge Instructions ---
Discharge Instructions General Discharge Information You were seen/treated for: Shortness of breath leg swelling We believe that your symptoms were multifactorial, and while CHF may have played a role, based on your chest XRay and lab work it does not appear as though you were significantly fluid overloaded. You should follow-up closely with your doctors (cardiology, pulmonology, and primary care). Special Instructions: Follow-up with your pricing manager, Dr. Lara, within 1 week of discharge. Follow-up with your primary care physician within 1 week of discharge. We have provided a prescription for Metolazone, take this once daily as needed for worsening lower extreimty swelling. Acute Coronary Syndrome Inclusion Criteria At DC or during hospital stay patient has or had the following: ACS DIAGNOSIS No Discharge Core Measures Meds if any: Prescribed or Continued at Discharge Meds if any: NOT Prescribed or Continued at Discharge Congestive Heart Failure Inclusion Criteria At DC or during hospital stay patient has or had the following: CHF DIAGNOSIS Yes Discharge Core Measures Meds if any: Prescribed or Continued at Discharge Meds if any: NOT Prescribed or Continued at Discharge Cerebrovascular accident Inclusion Criteria At DC or during hospital stay patient has or had the following: CVA/TIA Diagnosis No Discharge Core Measures Meds if any: Prescribed or Continued at Discharge Meds if any: NOT Prescribed or Continued at Discharge Venous thromboembolism Inclusion Criteria VTE Diagnosis No VTE Type NONE VTE Confirmed by (Test) NONE Discharge Core Measures - Per Current guidelines, there needs to be overlap - treatment for the first 5 days of Warfarin therapy. - If discharged on Warfarin prior to 5 days of - overlap therapy, the patient will need to be - assessed for post discharge needs including - *Post discharge parental anticoagulation - *Warfarin and/or parental anticoagulation education - *Follow up date to check INR post discharge At least 5 days overlap therapy as Inpatient No Meds if any: Prescribed or Continued at Discharge Note: Overlap Therapy is Warfarin and Anticoagulant Meds if any: NOT Prescribed or Continued at Discharge
[2017-09-11 14:56] VITALS: BP 116/64
== END 2017-09-11 19:10 | disposition home health service (06) ==
LOC: ERH 11:24 → 1NO 17:33 → ERHI 17:33 → ENRESERV 19:09 → ENTRNSPT 22:24 → EDTRNSPTSTS 22:37 → EDTRNSPT 22:37 → 1NO 22:40 → CMPTRNSPT 23:04 → 1NO 09-11 07:47 → ENPENDDIS 09-11 13:59 → ENTRNSPT 09-11 18:49 → EDTRNSPT 09-11 18:51 → EDTRNSPTSTS 09-11 18:51 → CMPTRNSPT 09-11 19:04 → 1NO 09-11 19:10
PROVIDERS: Physician Assistant Medical; Student in an Organized Health Care Education/Training Program
DX: I50.22 Chronic systolic (congestive) heart failure (principal); R63.5 Abnormal weight gain; J44.9 Chronic obstructive pulmonary disease, unspecified; E03.9 Hypothyroidism, unspecified; I48.91 Unspecified atrial fibrillation; Z79.01 Long term (current) use of anticoagulants; I25.10 Atherosclerotic heart disease of native coronary artery without angina pectoris; Z95.1 Presence of aortocoronary bypass graft
CPT/HCPCS: 1263; 1328; 1748; 6020; 36592; 71046; 82436; 93005; 93010; 96376; G0378; J1940; J3490

== ENCOUNTER → 2018-01-21 | Day surgery (SDC) | payer OTHER, MEDICARE ==
[~2018-01-21] VITALS: Ht 154.9 cm; Wt 92.5 kg
[~2018-01-21] MED LIST changes: +METOLAZONE2.5 M1 PO; +TOPROL XL100 M1 PO
--- NOTE | 2018-01-21 10:15 | Operative Report ---
Operative/Inv Procedure Report Surgery Date: 01/21/18 Name of Procedure: Cataract extraction with intraocular lens implantation right eye Pre-Operative Diagnosis: Age-related cataract right eye Post-Operative Diagnosis: Same Estimated Blood Loss: none Surgeon/Bulb Brander: Jann Christensen MD Anesthesia: local monitored anesthesi Complications: None Operative/Procedure Note Note: Preoperatively the patient was noted to have 20/80 vision in the right eye . The risks, benefits, and alternatives to surgery were discussed at length with the patient. Informed consent was obtained. The patient was brought to the operating room where the right eye was prepped and draped in the normal sterile fashion. A speculum was placed on the right eye with good exposure. The axis of the limbal relaxing incision was marked. Using a lvi blade at 600 depth, an incision spanning 45 degrees was made without complication. A limbal relaxing incision of equal length and depth was made 180 away.A stab incision was made using a paracentesis blade. Intracameral lidocaine was placed. Viscoelastic was used to form the anterior chamber. A clear corneal incision was made using keratome blade. A continuous curvilinear capsulorrhexis was made using a cystotome needle followed by Utrata forceps. There was no extension of the rhexis. Hydrodissection was performed using balanced salt solution. The cataract was removed using a stop and chop technique. Residual cortex was removed using coaxial irrigation and aspiration. The capsule was polished using irrigation and aspiration and the posterior capsule was cleaned using a balanced salt solution jet. There was no residual lens material inside the eye. The capsular bag was reformed using viscoelastic. An intraocular lens PCBOO of power 20.5 was verified and confirmed. It was loaded into an injector and injected into the eye. The lens was placed entirely within the capsular bag. Viscoelastic was evacuated using irrigation and aspiration. The wounds were stromally hydrated and the eye filled to physiologic pressure using balanced salt solution. Intracameral cefuroxime was placed. Speculum was removed and a shield was placed on the eye. The patient was brought to the recovery area without incident. Instructions were given to follow-up the next day for routine postoperative care.
== END ==
LOC: STS 01:17
DX: H25.9 Unspecified age-related cataract (principal); E11.9 Type 2 diabetes mellitus without complications; Z79.84 Long term (current) use of oral hypoglycemic drugs; Z79.01 Long term (current) use of anticoagulants; I10 Essential (primary) hypertension; I25.2 Old myocardial infarction; J44.9 Chronic obstructive pulmonary disease, unspecified; Z99.81 Dependence on supplemental oxygen
CPT/HCPCS: J2250; V2632